=== PATIENT | female | born 1930 | race Caucasian/White ===

== ENCOUNTER 2016-11-11 16:38 | Inpatient (IN) | payer MEDICARE, OTHER ==
[~2016-11-11] VITALS: Ht 162.6 cm; Wt 52.2 kg
[~2016-11-11 16:38] MED LIST: APIX2.5T PO; APIX5TAB PO; ASPI-630 PO; ATEN25TA PO; CALC-98 PO; CEFP200T PO; DABI75CA3 PO; DICY20TA3 PO; DRON400T PO; FAMO20TA5 PO; FURO40TA4 PO; GLUC1TAB71 PO; LEVO100T5 PO; LEVOXYL; LISI2.5T PO; LOPE2TAB56 PO; LORA10TA3 PO; LOVA40TA2 PO; MECL12.52 PO; METO25TA4 PO; METO50TA2 PO; MULT-245 PO; NIAC50TA3 PO; POTA20PA PO; SERT100T PO; TRAM-48 PO
[2016-11-11 17:44] LABS: BASO % 1 % (0-3); EOS % 3 % (0-3); HEMATOCRIT 44.5 % (36.0-47.0); HEMOGLOBIN 14.5 g/dL (12.0-15.5); LYMPH # 1.2 x10^3/uL (1.0-4.8); LYMPH % 20 % (24-48); MEAN CORPUSCULAR HEMOGLOBIN 31 pg (25-35); MEAN CORPUSCULAR HGB CONC 33 g/dL (31-37); MEAN CORPUSCULAR VOLUME 95 fL (79-100); MONO % 7 % (0-9); NEUT % 69 % (31-73); PLATELET COUNT 155 x10^3/uL (140-400); RED BLOOD COUNT 4.68 x10^6/uL (3.50-5.40); RED CELL DISTRIBUTION WIDTH 14.5 % (11.5-14.5)
[2016-11-11] MEDS: NITROGLYCERIN SUBLINGUAL 0.4 MG BOTTLE OF 25. SL PRN ×2 (17:50→18:12)
[2016-11-11 17:54] LABS: CALCIUM 9.3 mg/dL (8.5-10.1); CREATININE 1.1 mg/dL (0.6-1.0); GFR 47.3; POTASSIUM 3.5 mmol/L (3.5-5.1)
[2016-11-11 18:00] LABS: ALBUMIN 3.8 g/dL (3.4-5.0); ALBUMIN/GLOBULIN RATIO 1.1 (1.0-1.7); MAGNESIUM 2.1 mg/dL (1.8-2.4); TOTAL BILIRUBIN 0.4 mg/dL (0.2-1.0); TOTAL PROTEIN 7.4 g/dL (6.4-8.2)
[2016-11-11] MEDS ORDERED: LIDO:MAALOX:DONNATAL 1:1:1 15 ML SINGLE DOSE SWSW ONE (18:00)
[2016-11-11] MEDS ORDERED: IV NORMAL SALINE 1000ML BAG 1,000 ML IV SCH ×2 (18:00→20:05)
[2016-11-11] MEDS ORDERED: ASPIRIN CHEWABLE 81 MG TABLET. PO ONE (18:00)
--- NOTE | 2016-11-11 18:08 | EKG ---
[facility] [address] [place] [address] Test Date: 2016-11-11 Test Time: 16:47:57 Pat Name: PRIYANKA ELISE Department: Room: Gender: F [employer]: : 1930 Requested By: CARINE ANDERS Order Number: [id number] Reading MD: Chivo Velez Measurements Intervals [place] Rate: 104 P: TX: QRS: 3 QRSD: 90 T: -99 QT: 378 QTc: 497 Interpretive Statements A FIB. ST & T ABNORMALITY, CONSIDER ANTEROLATERAL ISCHEMIA OR LEFT VENTRICULAR STRAIN INFEROLATERAL ISCHEMIA OR LEFT VENTRICULAR STRAIN RI6.01 Unconfirmed report Compared to ECG 03/08/2016 15:08:09 Atrial fibrillation no longer present T-wave abnormality still present Possible ischemia still present Electronically Signed On 11-12-2016 15:05:16 CDT by Chivo Velez
[2016-11-11 18:09] LABS: CKMB MASS 2.6 ng/mL (0.0-3.6)
--- NOTE | 2016-11-11 19:28 | PHYS DOC ---
Past Medical History Past Medical History: A-Fib, GERD, Hypertension, Hypothyroid, Renal Disease Past Surgical History: Pacemaker, Other Additional Past Surgical Histo: A- PACED, CATERACT, LEFT BREAST BIOPSY Alcohol Use: None Drug Use: None Adult General Chief Complaint Chief Complaint: CHEST PAIN HPI HPI Patient is a 85 year old female who presents with complaint of chest pain. Patient states her symptoms are approximately 2 hours prior to arrival. Patient states that she got sudden onset of substernal chest pressure is associated with nausea and fatigue. Patient denied any vomiting, diaphoresis, or fever associated with symptoms. Patient has history of A. fib and congestive heart failure but no documented history of coronary artery disease. Patient has not taken any medications for her symptoms. Patient states that her pain radiates up towards the top portion of her chest. Patient states that she has had some mild associated burning with symptoms. Patient took a full strength aspirin prior to symptom onset. Review of Systems Review of Systems Constitutional: Denies fever or chills [] Eyes: Denies change in visual acuity, redness, or eye pain [] HENT: Denies nasal congestion or sore throat [] Respiratory: Denies cough or shortness of breath [] Cardiovascular: Chest pain [] GI: Nausea, denies abdominal pain, vomiting, bloody stools or diarrhea [] : Denies dysuria or hematuria [] Musculoskeletal: Denies back pain or joint pain [] Integument: Denies rash or skin lesions [] Neurologic: Denies headache, focal weakness or sensory changes [] Current Medications Current Medications Current Medications Medications (Trade) Dose Ordered Sig/Jess Start Time Stop Time Status Last Admin Dose Admin Aspirin (Children'S Aspirin) 324 mg 1X ONCE 11/11/16 18:00 11/11/16 18:01 DC Multi-Ingredient Mouthwash/Gargle (Gi Cocktail Single Dose) 15 ml 1X ONCE 11/11/16 18:00 11/11/16 18:01 DC 11/11/16 17:51 15 ML Nitroglycerin (Nitrostat) 0.4 mg PRN Q5MIN PRN 11/11/16 17:45 11/12/16 17:44 11/11/16 18:12 0.4 MG Sodium Chloride 1,000 ml @ 100 mls/hr Q10H 11/11/16 18:00 11/12/16 03:59 11/11/16 17:48 100 MLS/HR Allergies Allergies Allergies Coded Allergies Type Severity Reaction Last Updated Verified No Known Drug Allergies 12/31/13 No Physical Exam Physical Exam Constitutional: Alert, afebrile, appears in mild discomfort. [] HENT: Normocephalic, atraumatic, bilateral external ears normal, oropharynx moist, no oral exudates, nose normal. [] Eyes: PERRLA, EOMI, conjunctiva normal, no discharge. [] Neck: Normal range of motion, no tenderness, supple, no stridor. [] Cardiovascular: Tachycardia, irregular rhythm, no murmur [] Lungs & Thorax: Bilateral breath sounds clear to auscultation [] Abdomen: Bowel sounds normal, soft, no tenderness, no masses, no pulsatile masses. [] Skin: Warm, dry, no erythema, no rash. [] Back: No tenderness, no CVA tenderness. [] Extremities: No tenderness, no cyanosis, no clubbing, ROM intact, no edema. [] Neurologic: Alert and oriented X 3, normal motor function, normal sensory function, no focal deficits noted. [] Current Patient Data Vital Signs Vital Signs Date Time Temp Pulse Resp B/P (MAP) Pulse Ox O2 Delivery O2 Flow Rate FiO2 11/11/16 18:40 99 12 163/91 (115) 96 11/11/16 17:10 Room Air 11/11/16 16:45 98.3 98.3 Lab Values Laboratory Tests Test 11/11/16 17:26 White Blood Count 6.0 x10^3/uL (4.0-11.0) Red Blood Count 4.68 x10^6/uL (3.50-5.40) Hemoglobin 14.5 g/dL (12.0-15.5) Hematocrit 44.5 % (36.0-47.0) Mean Corpuscular Volume 95 fL (79-100) Mean Corpuscular Hemoglobin 31 pg (25-35) Mean Corpuscular Hemoglobin Concent 33 g/dL (31-37) Red Cell Distribution Width 14.5 % (11.5-14.5) Platelet Count 155 x10^3/uL (140-400) Neutrophils (%) (Auto) 69 % (31-73) Lymphocytes (%) (Auto) 20 % (24-48) L Monocytes (%) (Auto) 7 % (0-9) Eosinophils (%) (Auto) 3 % (0-3) Basophils (%) (Auto) 1 % (0-3) Neutrophils # (Auto) 4.1 x10^3uL (1.8-7.7) Lymphocytes # (Auto) 1.2 x10^3/uL (1.0-4.8) Monocytes # (Auto) 0.4 x10^3/uL (0.0-1.1) Eosinophils # (Auto) 0.2 x10^3/uL (0.0-0.7) Basophils # (Auto) 0.0 x10^3/uL (0.0-0.2) Sodium Level 142 mmol/L (136-145) Potassium Level 3.5 mmol/L (3.5-5.1) Chloride Level 102 mmol/L (98-107) Carbon Dioxide Level 28 mmol/L (21-32) Anion Gap 12 (6-14) Blood Urea Nitrogen 21 mg/dL (7-20) H Creatinine 1.1 mg/dL (0.6-1.0) H Estimated GFR (Cockcroft-Gault) 47.3 BUN/Creatinine Ratio 19 (6-20) Glucose Level 98 mg/dL (70-99) Calcium Level 9.3 mg/dL (8.5-10.1) Magnesium Level 2.1 mg/dL (1.8-2.4) Total Bilirubin 0.4 mg/dL (0.2-1.0) Aspartate Amino Transferase (AST) 71 U/L (15-37) H Alanine Aminotransferase (ALT) 57 U/L (14-59) Alkaline Phosphatase 37 U/L (46-116) L Creatine Kinase 154 U/L (26-192) Creatine Kinase MB (Mass) 2.6 ng/mL (0.0-3.6) Creatine Kinase MB Relative Index 1.7 % (0-4) Troponin I Quantitative < 0.017 ng/mL (0.000-0.055) ZG-Tru-L-Type Natriuretic Peptide 3391 pg/mL (0-449) H Total Protein 7.4 g/dL (6.4-8.2) Albumin 3.8 g/dL (3.4-5.0) Albumin/Globulin Ratio 1.1 (1.0-1.7) Lipase 186 U/L (73-393) Laboratory Tests 11/11/16 17:26 Laboratory Tests 11/11/16 17:26 EKG EKG Interpreted by me: Heart rate 104, atrial fibrillation, normal axis, no acute ST /T-wave abnormalities present [] Radiology/Procedures Radiology/Procedures One view AP chest x-ray interpreted by me: Cardiomegaly present, no infiltrates , no effusions [] Course & Med Decision Making Course & Med Decision Making Pertinent Labs and Imaging studies reviewed. (See chart for details) Patient's initial troponin was negative. Patient's BNP is elevated. Patient was given nitroglycerin and GI cocktail with improvement in symptoms though pain continues to be present. Patient's ARELY score is 2. The patient will require admission to the hospital for rule out of myocardial infarction. I spoke with Dr. Weaver who accepted care patient in hospital. Dragon Disclaimer Dragon Disclaimer This electronic medical record was generated, in whole or in part, using a voice recognition dictation system. Departure Departure Impression: Primary Impression: Chest pain Additional Impressions: Afib CHF (congestive heart failure) Disposition: ADMITTED INPATIENT Admitting Physician: Tejal Weaver Condition: STABLE Referrals: MONI REED MD (PCP) Problem Qualifiers Primary Impression: Chest pain Chest pain type: unspecified Qualified Codes: R07.9 - Chest pain, unspecified Additional Impressions: Afib Atrial fibrillation type: chronic Qualified Codes: I48.2 - Chronic atrial fibrillation CHF (congestive heart failure) Congestive heart failure type: unspecified congestive heart failure type Congestive heart failure chronicity: unspecified congestive heart failure chronicity Qualified Codes: I50.9 - Heart failure, unspecified CARINE ANDERS MD Nov 11, 2016 19:28
[2016-11-11 20:15] VITALS: BP 151/100
[2016-11-11] MEDS ORDERED: ONDANSETRON PF 4 MG/2 ML VIAL. IV PRN (20:15)
[2016-11-11] MEDS ORDERED: DOCU-109 PO (22:09)
[2016-11-11] MEDS ORDERED: DIPH50CA59 PO (22:09)
[2016-11-11] MEDS ORDERED: HYDR12.58 PO (22:09)
[2016-11-11] MEDS ORDERED: DOCUSATE SODIUM 100 MG CAPSULE. PO PRN (23:00)
[2016-11-11] MEDS ORDERED: CALCIUM CARBONATE 500 MG TAB.CHEW PO PRN (23:00)
--- NOTE | 2016-11-11 23:01 | PDOC1 ---
History and Physical Date of Admission Date of Admission DATE: 11/11/16 TIME: 22:55 Identification/Chief Complaint Chief Complaint chest pain Problems: Source Source: Chart review, Patient History of Present Illness History of Present Illness Ms. Gardner, is a 85 year old female admit from ER with acute chest pain. 2 hours of sudden onset, substernal chest pressure with nausea and fatigue. She felt "hot and vomity" and she felt that she had drool with bilious consistency in her mouth, that has now largely improved. She denied any vomiting, diaphoresis, associated with symptoms. Pain is dull and burning, she did not describe pressure - pain 6/10, now better Noted history of A. fib and Diastolic congestive heart failure, compliant with meds, no coronary artery disease. She has new life stress from moving to assisted living this week, has been compliant with all meds Past Medical History Cardiovascular: AFIB, CHF, HTN, Hyperlipidemia, Other Pulmonary: No pertinent hx CENTRAL NERVOUS SYSTEM: Other GI: GERD, Peptic Ulcer disease Heme/Onc: No pertinent hx Hepatobiliary: No pertinent hx Psych: Anxiety, Depression Musculoskeletal: Osteoarthritis Rheumatologic: No pertinent hx Infectious disease: No pertinent hx Renal/: No pertinent hx Endocrine: Hypothyroidism Past Surgical History Past Surgical History: Pacemaker, Other Family History Family History: Cancer Social History Smoke: No ALCOHOL: none Drugs: None Current Medications Current Medications Current Medications Aspirin (Children'S Aspirin) 324 mg 1X ONCE PO ; Start 11/11/16 at 18:00; Stop 11/11/16 at 18:01; Status DC Nitroglycerin (Nitrostat) 0.4 mg PRN Q5MIN PRN SL CP RATING > 1/10 Last administered on 11/11/16 18:12; Start 11/11/16 at 17:45; Stop 11/12/16 at 17:44 Sodium Chloride 1,000 ml @ 100 mls/hr Q10H IV Last administered on 11/11/16 17 :48; Start 11/11/16 at 18:00; Stop 11/12/16 at 03:59 Multi-Ingredient Mouthwash/Gargle (Gi Cocktail Single Dose) 15 ml 1X ONCE SWSW Last administered on 11/11/16 17:51; Start 11/11/16 at 18:00; Stop 11/11/16 at 18:01; Status DC Ondansetron HCl (Zofran) 4 mg PRN Q8HRS PRN IV NAUSEA/VOMITING; Start 11/11/16 at 20:15; Stop 11/12/16 at 20:14 Sodium Chloride 1,000 ml @ 50 mls/hr Q20H IV ; Start 11/11/16 at 20:05; Stop 11/12/16 at 20:04 Active Scripts Active Reported Colace (Docusate Sodium) 100 Mg Capsule 1 Cap PO BID PRN Unisom (Diphenhydramine Hcl) 50 Mg Capsule 50 Mg PO HS Hydrochlorothiazide Tablet (Hydrochlorothiazide) 12.5 Mg Tablet 2 Tab PO DAILY Eliquis (Apixaban) 2.5 Mg Tablet 5 Mg PO BID Famotidine 20 Mg Tablet 20 Mg PO HS Metoprolol Tartrate 50 Mg Tablet 50 Mg PO BID Ultram (Tramadol Hcl) 50 Mg Tablet 1 Tab PO Q6HRS Levothyroxine Sodium 100 Mcg Tablet 1 Tab PO DAILY Lisinopril 2.5 Mg Tablet 2.5 Mg PO DAILY Multi Vitamin Daily (Multivitamin) 1 Each Tablet 1 Each PO Zoloft (Sertraline Hcl) 100 Mg Tablet 100 Mg PO DAILY Lovastatin 40 Mg Tablet 40 Mg PO HS Allergies Allergies: Coded Allergies: No Known Drug Allergies (Unverified , 12/31/13) ROS General: YES: Malaise, No: Chills, Night Sweats, Fatigue, Appetite, Other PSYCHOLOGICAL ROS: No: Anxiety, Behavioral Disorder, Concentration difficultie , Decreased libido, Depression, Disorientation, Hallucinations, Hostility, Irritablity, Memory difficulties, Mood Swings, Obsessive thoughts, Physical abuse, Sexual abuse, Sleep disturbances, Suicidal ideation, Other Eyes: No Blurry vision, No Decreased vision, No Double vision, No Dry eyes, No Excessive tearing, No Eye Pain, No Itchy Eyes, No Loss of vision, No Photophobia , No Scotomata, No Uses contacts, No Uses glasses, No Other HEENT: No: Heacaches, Visual Changes, Hearing change, Nasal congestion, Nasal discharge, Oral lesions, Sinus pain, Sore Throat, Epistaxis, Sneezing, Snoring, Tinnitus, Vertigo, Vocal changes, Other Respiratory: No: Cough, Hemoptysis, Orthopnea, Pleuritic Pain, Shortness of breath, SOB with excertion, Sputum Changes, Stridor, Tachypnea, Wheezing, Other Cardiovascular: yes Chest Pain, No Palpitations, No Orthopnea, No Paroxysmal Noc. Dyspnea, No Edema, No Lt Headedness, No Other Gastrointestinal: Yes Nausea, Yes Abdominal Pain, No Vomiting, No Diarrhea, No Constipation, No Melena, No Hematochezia, No Other Genitourinary: No Dysuria, No Frequency, No Incontinence, No Hematuria, No Retention, No Discharge, No Urgency, No Pain, No Flank Pain, No Other, No , No , No , No , No , No , No Musculoskeletal: No Gait Disturbance, No Joint Pain, No Joint Stiffness, No Joint Swelling, No Muscle Pain, No Muscular Weakness, No Pain In:, No Swelling In:, No Other Neurological: No Behavorial Changes, No Bowel/Bladder ControlChng, No Confusion , No Dizziness, No Gait Disturbance, No Headaches, No Impaired Coord/balance, No Memory Loss, No Numbness/Tingling, No Seizures, No Speech Problems, No Tremors, No Visual Changes, No Weakness, No Other Skin: No Dry Skin, No Eczema, No Hair Changes, No Lumps, No Mole Changes, No Mottling, No Nail Changes, No Pruritus, No Rash, No Skin Lesion Changes, No Other, No Acne Physical Exam General: Alert, Oriented X3, Cooperative HEENT: Atraumatic, PERRLA, EOMI Lungs: Clear to auscultation Heart: no murmurs, irregularly irregular, other (pain not reproducible) Abdomen: Normal bowel sounds, Soft (mild tender, ) Extremities: No clubbing, No cyanosis, No edema, Normal pulses Neuro: Normal tone, Sensation intact Psych/Mental Status: Mood NL Vitals Vitals Vital Signs Date Time Temp Pulse Resp B/P (MAP) Pulse Ox O2 Delivery O2 Flow Rate FiO2 11/11/16 19:10 107 12 161/88 (112) 96 11/11/16 17:10 Room Air 11/11/16 16:45 98.3 98.3 Labs Labs Laboratory Tests Test 11/11/16 17:26 White Blood Count 6.0 x10^3/uL (4.0-11.0) Red Blood Count 4.68 x10^6/uL (3.50-5.40) Hemoglobin 14.5 g/dL (12.0-15.5) Hematocrit 44.5 % (36.0-47.0) Mean Corpuscular Volume 95 fL (79-100) Mean Corpuscular Hemoglobin 31 pg (25-35) Mean Corpuscular Hemoglobin Concent 33 g/dL (31-37) Red Cell Distribution Width 14.5 % (11.5-14.5) Platelet Count 155 x10^3/uL (140-400) Neutrophils (%) (Auto) 69 % (31-73) Lymphocytes (%) (Auto) 20 % (24-48) Monocytes (%) (Auto) 7 % (0-9) Eosinophils (%) (Auto) 3 % (0-3) Basophils (%) (Auto) 1 % (0-3) Neutrophils # (Auto) 4.1 x10^3uL (1.8-7.7) Lymphocytes # (Auto) 1.2 x10^3/uL (1.0-4.8) Monocytes # (Auto) 0.4 x10^3/uL (0.0-1.1) Eosinophils # (Auto) 0.2 x10^3/uL (0.0-0.7) Basophils # (Auto) 0.0 x10^3/uL (0.0-0.2) Sodium Level 142 mmol/L (136-145) Potassium Level 3.5 mmol/L (3.5-5.1) Chloride Level 102 mmol/L (98-107) Carbon Dioxide Level 28 mmol/L (21-32) Anion Gap 12 (6-14) Blood Urea Nitrogen 21 mg/dL (7-20) Creatinine 1.1 mg/dL (0.6-1.0) Estimated GFR (Cockcroft-Gault) 47.3 BUN/Creatinine Ratio 19 (6-20) Glucose Level 98 mg/dL (70-99) Calcium Level 9.3 mg/dL (8.5-10.1) Magnesium Level 2.1 mg/dL (1.8-2.4) Total Bilirubin 0.4 mg/dL (0.2-1.0) Aspartate Amino Transf (AST/SGOT) 71 U/L (15-37) Alanine Aminotransferase (ALT/SGPT) 57 U/L (14-59) Alkaline Phosphatase 37 U/L (46-116) Creatine Kinase 154 U/L (26-192) Creatine Kinase MB (Mass) 2.6 ng/mL (0.0-3.6) Creatine Kinase MB Relative Index 1.7 % (0-4) Troponin I Quantitative < 0.017 ng/mL (0.000-0.055) PI-Wjp-F-Type Natriuretic Peptide 3391 pg/mL (0-449) Total Protein 7.4 g/dL (6.4-8.2) Albumin 3.8 g/dL (3.4-5.0) Albumin/Globulin Ratio 1.1 (1.0-1.7) Lipase 186 U/L (73-393) Laboratory Tests Test 11/11/16 17:26 White Blood Count 6.0 x10^3/uL (4.0-11.0) Red Blood Count 4.68 x10^6/uL (3.50-5.40) Hemoglobin 14.5 g/dL (12.0-15.5) Hematocrit 44.5 % (36.0-47.0) Mean Corpuscular Volume 95 fL (79-100) Mean Corpuscular Hemoglobin 31 pg (25-35) Mean Corpuscular Hemoglobin Concent 33 g/dL (31-37) Red Cell Distribution Width 14.5 % (11.5-14.5) Platelet Count 155 x10^3/uL (140-400) Neutrophils (%) (Auto) 69 % (31-73) Lymphocytes (%) (Auto) 20 % (24-48) Monocytes (%) (Auto) 7 % (0-9) Eosinophils (%) (Auto) 3 % (0-3) Basophils (%) (Auto) 1 % (0-3) Neutrophils # (Auto) 4.1 x10^3uL (1.8-7.7) Lymphocytes # (Auto) 1.2 x10^3/uL (1.0-4.8) Monocytes # (Auto) 0.4 x10^3/uL (0.0-1.1) Eosinophils # (Auto) 0.2 x10^3/uL (0.0-0.7) Basophils # (Auto) 0.0 x10^3/uL (0.0-0.2) Sodium Level 142 mmol/L (136-145) Potassium Level 3.5 mmol/L (3.5-5.1) Chloride Level 102 mmol/L (98-107) Carbon Dioxide Level 28 mmol/L (21-32) Anion Gap 12 (6-14) Blood Urea Nitrogen 21 mg/dL (7-20) Creatinine 1.1 mg/dL (0.6-1.0) Estimated GFR (Cockcroft-Gault) 47.3 BUN/Creatinine Ratio 19 (6-20) Glucose Level 98 mg/dL (70-99) Calcium Level 9.3 mg/dL (8.5-10.1) Magnesium Level 2.1 mg/dL (1.8-2.4) Total Bilirubin 0.4 mg/dL (0.2-1.0) Aspartate Amino Transf (AST/SGOT) 71 U/L (15-37) Alanine Aminotransferase (ALT/SGPT) 57 U/L (14-59) Alkaline Phosphatase 37 U/L (46-116) Creatine Kinase 154 U/L (26-192) Creatine Kinase MB (Mass) 2.6 ng/mL (0.0-3.6) Creatine Kinase MB Relative Index 1.7 % (0-4) Troponin I Quantitative < 0.017 ng/mL (0.000-0.055) KS-Kso-R-Type Natriuretic Peptide 3391 pg/mL (0-449) Total Protein 7.4 g/dL (6.4-8.2) Albumin 3.8 g/dL (3.4-5.0) Albumin/Globulin Ratio 1.1 (1.0-1.7) Lipase 186 U/L (73-393) VTE Prophylaxis Ordered VTE Prophylaxis Devices: Yes VTE Pharmacological Prophylaxi: No Assessment/Plan Assessment/Plan pain, chest pain, anginal but atypical, r/o ACS< consult CV to eval. 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
[2016-11-11] MEDS: traMADol 50 MG TABLET PO PRN (23:19)
[2016-11-11] MEDS: LIDO:MAALOX:DONNATAL 1:1:1 15 ML SINGLE DOSE SWSW ONE (23:19)
[2016-11-11 23:30] VITALS: BP 153/85
[2016-11-12] MEDS ORDERED: traMADol 50 MG TABLET PO SCH
--- NOTE | 2016-11-12 02:22 | ACF ---
Admission Forms Criteria HEART FAILURE: COMMON COMPLICATIONS (Place 'X' for any and all applicable criteria): Ongoing inpatient care may be indicated for heart failure with 1 or more of the following (1)(2)(3)(4)(5)(6)(7)(8): [ ]I. New-onset heart failure [ ]II. Acute cardiac ischemia causing or associated with failure [ ]III. Ongoing need for care for primary condition requiring frequent therapy adjustments because of changes in cardiac function (eg, drug dosage changes for drugs that are renally metabolized) [X]IV. Complications of heart failure, including 1 or more of the following: [X]a) Hemodynamic instability [ ]b) Pericardial effusion [ ]c) Symptomatic pleural effusion [ ]d) Hypoxemia [ ]e) Tachypnea [ ]f) Dyspnea [ ]g) Syncope [ ]h) Altered mental status [ ]i) Acute renal insufficiency that is severe (reduction of more than 50% in estimated glomerular filtration rate from baseline) or progressive reduction of more than 25% in estimated glomerular filtration rate from baseline, with creatinine continuing to rise) [ ]j) Debilitating anasarca (eg tissue breakdown with infection, inability to void due to edema) (E) [ ]k) Clinically significant metabolic abnormalities due to heart failure (eg, new-onset metabolic acidosis) Extended stay may be needed until ALL of the following are present (1)(3)(18)(41 )(55) [ ]a) Hemodynamic stability [ ]b) Stable and effective diuretic regimen established (or patient on stable dialysis regimen if in chronic renal failure) [ ]c) Volume status acceptable on oral medication [ ]d) Breathing comfortably at rest [ ]e) Saturation of arterial oxygen greater than 90% or at acceptable baseline [ ]f) Pulmonary edema absent or improved [ ]g) Peripheral or sacral edema absent or improved [ ]h) Renal function stable and manageable at a lower level of care [ ]i) Complications (eg, pleural effusion) resolved or manageable at a lower level of care [ ]g) Patient or caregiver has received written discharge instructions or educational material addressing activity level, diet, discharge medications, follow-up appointment, weight monitoring, and what to do if symptoms worsen.(25)(26) The original [employer] [facility] [employer] content created by [employer] has been revised. The portions of the content which have been revised are identified through the use of italic text, and [facility] has neither reviewed nor approved the modified material.All other unmodified content is copyright [facility]. Please see references footnoted in the original [facility] edition 2015 Admission Criteria Met?: Yes ALFRED ROBERSON Nov 12, 2016 02:22
[2016-11-12 02:50] LABS: BASO # 0.1 x10^3/uL (0.0-0.2); BASO % 1 % (0-3); EOS % 3 % (0-3); HEMATOCRIT 41.1 % (36.0-47.0); HEMOGLOBIN 13.1 g/dL (12.0-15.5); LYMPH % 26 % (24-48); MEAN CORPUSCULAR HEMOGLOBIN 30 pg (25-35); MEAN CORPUSCULAR HGB CONC 32 g/dL (31-37); MEAN CORPUSCULAR VOLUME 95 fL (79-100); MONO % 10 % (0-9); NEUT % 62 % (31-73); PLATELET COUNT 152 x10^3/uL (140-400); RED BLOOD COUNT 4.32 x10^6/uL (3.50-5.40); WHITE BLOOD COUNT 7.9 x10^3/uL (4.0-11.0)
[2016-11-12 02:56] LABS: CALCIUM 8.7 mg/dL (8.5-10.1); GFR 52.8; POTASSIUM 3.1 mmol/L (3.5-5.1)
[2016-11-12 03:00] VITALS: BP 115/57
[2016-11-12 03:15] LABS: CHOLESTEROL/HDL RATIO 2.8
[2016-11-12] MEDS: ANTI-COAG MONITOR BY PHARMACY. MC PRN (04:53)
[2016-11-12] MEDS: LEVOTHYROXINE 100 MCG TABLET PO SCH (06:34)
[2016-11-12 07:00] VITALS: BP 152/82
--- NOTE | 2016-11-12 08:37 | PDOC2 ---
CARDIAC CONSULT DATE OF CONSULT Date of Consult DATE: 11/12/16 TIME: 08:25 REASON FOR CONSULT Reason for Consult: Chest pain REFERRING PHYSICIAN Referring Physician: Dr. Humphrey SOURCE Source: Chart review, Patient HISTORY OF PRESENT ILLNESS HISTORY OF PRESENT ILLNESS This is an 85 yo female who presented with complaints of chest pain. Patient reports pain began yesterday afternoon. Located in her central chest. Describes as heaviness. Associated with dizziness, SOA, and nausea. No associated diaphoresis or palpitations. No specific exacerbating or relieved factors. Moved upward into throat. Progressively worsened through afternoon. Became "debilitating." Notified staff at assisted living who called EMS. Resolved this morning. Reports compliance with medications. Reports having similar episode of chest pain a couple of weeks ago but was more stabbing in nature. Pain resolved without intervention and did not return until yesterday. PAST MEDICAL HISTORY Past Medical History Cardiovascular: AFIB, CHF, HTN, Hyperlipidemia, Other (SSS s/p pacemaker, PVD s /p subclavian stent) Pulmonary: No pertinent hx CENTRAL NERVOUS SYSTEM: Other (no pertinent hx ) GI: GERD, Peptic Ulcer disease Heme/Onc: No pertinent hx Hepatobiliary: No pertinent hx Psych: Anxiety, Depression Musculoskeletal: Osteoarthritis Rheumatologic: No pertinent hx Infectious disease: No pertinent hx ENT: No pertinent hx Renal/: No pertinent hx Endocrine: Hypothyroidism Dermatology: No pertinent hx PAST SURGICAL HISTORY Past Surgical History Pacemaker (Medtronic ), Other (right knee sx, left breast lumpectomy ) FAMILY HISTORY Family History: Cancer SOCIAL HISTORY Social History Smoke: No ALCOHOL: none Drugs: None Lives: Assisted living CURRENT MEDICATIONS CURRENT MEDICATIONS Current Medications Medications (Trade) Dose Ordered Sig/Jess Route PRN Reason Start Time Stop Time Status Last Admin Dose Admin Nitroglycerin (Nitrostat) 0.4 mg PRN Q5MIN PRN SL CP RATING > 1/10 11/11/16 17:45 11/12/16 17:44 11/11/16 18:12 Sodium Chloride 1,000 ml @ 100 mls/hr Q10H IV 11/11/16 18:00 11/11/16 23:14 DC 11/11/16 17:48 Multi-Ingredient Mouthwash/Gargle (Gi Cocktail Single Dose) 15 ml 1X ONCE SWSW 11/11/16 18:00 11/11/16 18:01 DC 11/11/16 17:51 Levothyroxine Sodium (Synthroid) 100 mcg DAILY07 PO 11/12/16 07:00 11/12/16 06:34 Multi-Ingredient Mouthwash/Gargle (Gi Cocktail Single Dose) 15 ml 1X ONCE SWSW 11/11/16 23:30 11/11/16 23:31 DC 11/11/16 23:19 Info (Anti-Coagulation Monitoring By Pharmacy) 1 each PRN DAILY PRN MC SEE COMMENTS 11/11/16 23:15 11/12/16 04:53 Tramadol HCl (Ultram) 50 mg PRN Q6HRS PRN PO MODERATE PAIN 11/12/16 00:00 11/11/16 23:19 ALLERGIES ALLERGIES: Coded Allergies: No Known Drug Allergies (Unverified , 12/31/13) ROS Review of System 14 point ROS conducted with pertinent positives noted above in HPI PHYSICAL EXAM General: Alert, Oriented X3, Cooperative, No acute distress HEENT: Atraumatic, Mucous membr. moist/pink Lungs: Clear to auscultation, Normal air movement Heart: Normal S1, Normal S2, Other (IRRR; tele AFIB with controlled ventricular rate) Abdomen: Soft Extremities: No cyanosis, No edema, Normal pulses Skin: No significant lesion Neuro: Normal speech, Sensation intact Psych/Mental Status: Mental status NL, Mood NL MUSCULOSKELETAL: Osteoarthritic changes both hands VITALS VITALS Vital Signs Date Time Temp Pulse Resp B/P (MAP) Pulse Ox O2 Delivery O2 Flow Rate FiO2 11/12/16 07:00 97.4 115 18 152/82 (105) 99 Room Air 97.4 11/12/16 03:00 2.0 LABS Lab: Laboratory Tests Test 11/11/16 17:26 11/12/16 01:50 White Blood Count 6.0 x10^3/uL (4.0-11.0) 7.9 x10^3/uL (4.0-11.0) Red Blood Count 4.68 x10^6/uL (3.50-5.40) 4.32 x10^6/uL (3.50-5.40) Hemoglobin 14.5 g/dL (12.0-15.5) 13.1 g/dL (12.0-15.5) Hematocrit 44.5 % (36.0-47.0) 41.1 % (36.0-47.0) Mean Corpuscular Volume 95 fL (79-100) 95 fL (79-100) Mean Corpuscular Hemoglobin 31 pg (25-35) 30 pg (25-35) Mean Corpuscular Hemoglobin Concent 33 g/dL (31-37) 32 g/dL (31-37) Red Cell Distribution Width 14.5 % (11.5-14.5) 14.0 % (11.5-14.5) Platelet Count 155 x10^3/uL (140-400) 152 x10^3/uL (140-400) Neutrophils (%) (Auto) 69 % (31-73) 62 % (31-73) Lymphocytes (%) (Auto) 20 % (24-48) 26 % (24-48) Monocytes (%) (Auto) 7 % (0-9) 10 % (0-9) Eosinophils (%) (Auto) 3 % (0-3) 3 % (0-3) Basophils (%) (Auto) 1 % (0-3) 1 % (0-3) Neutrophils # (Auto) 4.1 x10^3uL (1.8-7.7) 4.9 x10^3uL (1.8-7.7) Lymphocytes # (Auto) 1.2 x10^3/uL (1.0-4.8) 2.0 x10^3/uL (1.0-4.8) Monocytes # (Auto) 0.4 x10^3/uL (0.0-1.1) 0.8 x10^3/uL (0.0-1.1) Eosinophils # (Auto) 0.2 x10^3/uL (0.0-0.7) 0.2 x10^3/uL (0.0-0.7) Basophils # (Auto) 0.0 x10^3/uL (0.0-0.2) 0.1 x10^3/uL (0.0-0.2) Sodium Level 142 mmol/L (136-145) 142 mmol/L (136-145) Potassium Level 3.5 mmol/L (3.5-5.1) 3.1 mmol/L (3.5-5.1) Chloride Level 102 mmol/L (98-107) 105 mmol/L (98-107) Carbon Dioxide Level 28 mmol/L (21-32) 28 mmol/L (21-32) Anion Gap 12 (6-14) 9 (6-14) Blood Urea Nitrogen 21 mg/dL (7-20) 16 mg/dL (7-20) Creatinine 1.1 mg/dL (0.6-1.0) 1.0 mg/dL (0.6-1.0) Estimated GFR (Cockcroft-Gault) 47.3 52.8 BUN/Creatinine Ratio 19 (6-20) Glucose Level 98 mg/dL (70-99) 78 mg/dL (70-99) Calcium Level 9.3 mg/dL (8.5-10.1) 8.7 mg/dL (8.5-10.1) Magnesium Level 2.1 mg/dL (1.8-2.4) Total Bilirubin 0.4 mg/dL (0.2-1.0) Aspartate Amino Transf (AST/SGOT) 71 U/L (15-37) Alanine Aminotransferase (ALT/SGPT) 57 U/L (14-59) Alkaline Phosphatase 37 U/L (46-116) Creatine Kinase 154 U/L (26-192) Creatine Kinase MB (Mass) 2.6 ng/mL (0.0-3.6) Creatine Kinase MB Relative Index 1.7 % (0-4) Troponin I Quantitative < 0.017 ng/mL (0.000-0.055) < 0.017 ng/mL (0.000-0.055) LA-Jll-H-Type Natriuretic Peptide 3391 pg/mL (0-449) Total Protein 7.4 g/dL (6.4-8.2) Albumin 3.8 g/dL (3.4-5.0) Albumin/Globulin Ratio 1.1 (1.0-1.7) Lipase 186 U/L (73-393) Triglycerides Level 62 mg/dL (0-150) Cholesterol Level 143 mg/dL (0-200) LDL Cholesterol, Calculated 79 mg/dL (0-100) VLDL Cholesterol, Calculated 12 mg/dL (0-40) Non-HDL Cholesterol Calculated 91 mg/dL (0-129) HDL Cholesterol 52 mg/dL (40-60) Cholesterol/HDL Ratio 2.8 ECHOCARDIOGRAM ECHOCARDIOGRAM <Conclusion> Left ventricle systolic function is normal. The Ejection Fraction is 50-55%. Septal motion suggestive of post-operative state/conduction abnormality. Tissue Doppler imaging reveals moderate left ventricular diastolic dysfunction. Doppler and Color Flow revealed mild mitral regurgitation. Doppler and Color Flow revealed moderate tricuspid regurgitation. The PA pressure was estimated at 45 mmHg. DATE: 03/10/16 0905 ASSESSMENT/PLAN ASSESSMENT/PLAN 1. Chest pain; trop series negative- AMI ruled out. Echo 03/25 with low- normal LV function with an EF of 50-55%. Given symptomatology and risk factors, will proceed with MPI to r/o ischemia. 2. Paroxysmal AFIB; device check 10/28/16 revealed limited AFIB burden. Presently in AFIB. Rate controlled with BB. on Elquis for stroke prevention 3. SSS s/p Medtronic pacemaker implantation: recent device interrogation with normal device function 4. Hypertensionl; controlled with meds 5. Hyperlipidemia; LDL 79. continue statin 6. Chronic diastolic heart failure; appears compensated. continue medical management 7. Hypokalemia; replace. Mg WNL. Monitor lytes. 8. GERD; PPI Problems: DORCAS MASTERS APRN Nov 12, 2016 08:37
[2016-11-12] MEDS ORDERED: POTASSIUM CHLORIDE 20 MEQ TABLET.ER. PO ONE (08:45)
--- NOTE | 2016-11-12 08:51 | RAD ---
Indication chest pain. A single view of the chest was obtained. Comparison is made to an examination 03/08/2016. There is mild unchanged cardiomegaly. There is no gross congestive heart failure. There is no consolidated pneumonia significant pleural fluid collection or pneumothorax. Bipolar cardiac pacing device and degenerative changes about the shoulders are noted. A vascular stent is noted in the left hemithorax. IMPRESSION: No acute finding. No significant change
[2016-11-12] MEDS ORDERED: APIXABAN 5 MG TABLET. PO SCH (09:00)
[2016-11-12] MEDS: SERTRALINE 50 MG TABLET. PO SCH (09:30)
[2016-11-12] MEDS: LISINOPRIL 2.5 MG TABLET PO SCH (09:31)
[2016-11-12] MEDS: hydroCHLOROthiazide 25 MG TABLET PO SCH (09:32)
[2016-11-12] MEDS ORDERED: REGADENOSON 0.4 MG/5 ML DISP.SYRIN. IV ONE (10:45)
[2016-11-12] MEDS: traMADol 50 MG TABLET PO PRN ×2 (12:43→23:37)
[2016-11-12] MEDS: METOPROLOL TART IMMED RELEASE 50 MG TABLET. PO SCH ×2 (13:30→20:57)
--- NOTE | 2016-11-12 13:52 | RAD ---
APPROVED REPORT Test Type: Pharmacological Stress Nurse/Tech: Iza Pretty RN Test Indications: Chest Pain Cardiac History: see ehr Medications: see ehr Medical History: see ehr Resting ECG: Afib Resting Heart Rate: 114 bpm Resting Blood Pressure: 156/91mmHg Pretest Chest Pain: None Nurse/Tech Notes Lungs CTA, Irregular heart rate Consent: The procedure was explained to the patient in lay terms. Informed consent was witnessed. Kieran eout was entered into [employer]. History and Stress Test performed by Brooke PittmanNKisha Pharm. Details Pharmacologic stress testing was performed using 0.4mg per 5ml of regadenoson given intravenously ove r 7-10 seconds. Stress Symptoms No chest pain or symptoms.Nausea POST EXERCISE Reason for Termination: Infusion complete Max HR: 152 bpm Max Blood Pressure: 158/60mmHg Blood Pressure response to exercise: Normal blood pressure response during stress. Chest Pain: No. Arrhythmia: No. ST Change: No. INTERPRETATION Stress EKG Conclusion: The resting EKG showed atrial fibrillation with mild nonspecific ST segment ch anges. The stress EKG showed no significant changes from baseline. No EKG evidence of stress-induced ischemia. Imaging Protocol IMAGE PROTOCOL: Rest Tc-99m/stress Tc-99m 1 day Rest: Stress: Viability: Radiopharm.Tc99m [id number] Sestamibi Dose8.02mCi 30.6mCi Duration 15min. 10min. Img Date 11/12/2016 11/12/2016 Inj-Img Pviv50uss. 60min. Rest Admin Site:IV - Left AntecubitalAdministrator:RT Carolina (R)(N) Stress Admin Site: IV - Left AntecubitalAdministrator: RT Carolina (R)(N) STRESS DATA End Diast. Vol.53.0mlAv. Heart Gzod864.0bpm End Syst. Vol.28.0mlCO Index BSA0.0L/min Myocardial Mass92.0gEject. Ppmjbojf23.0% Stress Rates Pk. Fill Rate4.84EDV/secLVtime Pk. Fill 94.36msec Pk. Empty Rate4.86ESV/secLVtime Pk. Eject75.41msec 04/12 Pk. Fill2.48EDV/sec Stress Scores Regional WT1.00Summed WT19.00 Regional WM0.00Summed WM29.00 LV Perfusion The stress scans showed no significant defects. The rest scans showed no significant defects. Nuclear imaging shows no reversible ischemia or infarct. Wall Motion Left ventricular systolic function has mild hypokinesis in the septal wall. Overall ejection fraction is 47%. Rhythm is atrial fibrillation. LV Perf. Quant 17 Seg. SSS8.00 17 Seg. SRS12.00 17 Seg. SDS0.00 Stress Defect Extent (% LAD)14.40Rest Defect Extent (% LAD)13.80Rev. Defect Extent (% LAD)0.00 Stress Defect Extent (% LCX) 20.00Rest Defect Extent (% LCX)23.80Rev. Defect Extent (% LCX)0.00 Stress Defect Extent (% RCA)0.00Rest Defect Extent (% RCA)2.20Rev. Defect Extent (% RCA)0.00 Stress Defect Extent (% JAMEE)14.30Rest Defect Extent (% JAMEE)17.40Rev. Defect Extent (% JAMEE)0.00 Conclusion 1. No EKG evidence of stress-induced ischemia. 2. Nuclear imaging shows no reversible ischemia or infarct. 3. Mildly decreased ejection fraction at 47% in the setting of atrial fibrillation. 4. Low to moderately low risk Lexiscan nuclear stress test.
[2016-11-12 15:00] VITALS: BP 125/81
--- NOTE | 2016-11-12 15:23 | PDOC ---
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, in chronic htn, History of Present Illness History of Present Illness DC home if stress test neg, chest pain resolved, PT eval, 6 min walk, Vitals Vitals Vital Signs Date Time Temp Pulse Resp B/P (MAP) Pulse Ox O2 Delivery O2 Flow Rate FiO2 11/12/16 13:43 99 Nasal Cannula 2.0 11/12/16 13:30 110 131/73 11/12/16 12:43 18 11/12/16 07:00 97.4 97.4 Physical Exam General: Alert, Oriented X3, Cooperative, No acute distress Heart: Normal S1, Normal S2, Other (IRRR; tele AFIB with controlled ventricular rate) Lungs: Clear, Other Abdomen: Soft Extremities: No cyanosis, No edema, Normal pulses Skin: No significant lesion Labs LABS Laboratory Tests Test 11/11/16 17:26 11/12/16 01:50 11/12/16 08:25 White Blood Count 6.0 x10^3/uL (4.0-11.0) 7.9 x10^3/uL (4.0-11.0) Red Blood Count 4.68 x10^6/uL (3.50-5.40) 4.32 x10^6/uL (3.50-5.40) Hemoglobin 14.5 g/dL (12.0-15.5) 13.1 g/dL (12.0-15.5) Hematocrit 44.5 % (36.0-47.0) 41.1 % (36.0-47.0) Mean Corpuscular Volume 95 fL (79-100) 95 fL (79-100) Mean Corpuscular Hemoglobin 31 pg (25-35) 30 pg (25-35) Mean Corpuscular Hemoglobin Concent 33 g/dL (31-37) 32 g/dL (31-37) Red Cell Distribution Width 14.5 % (11.5-14.5) 14.0 % (11.5-14.5) Platelet Count 155 x10^3/uL (140-400) 152 x10^3/uL (140-400) Neutrophils (%) (Auto) 69 % (31-73) 62 % (31-73) Lymphocytes (%) (Auto) 20 % (24-48) 26 % (24-48) Monocytes (%) (Auto) 7 % (0-9) 10 % (0-9) Eosinophils (%) (Auto) 3 % (0-3) 3 % (0-3) Basophils (%) (Auto) 1 % (0-3) 1 % (0-3) Neutrophils # (Auto) 4.1 x10^3uL (1.8-7.7) 4.9 x10^3uL (1.8-7.7) Lymphocytes # (Auto) 1.2 x10^3/uL (1.0-4.8) 2.0 x10^3/uL (1.0-4.8) Monocytes # (Auto) 0.4 x10^3/uL (0.0-1.1) 0.8 x10^3/uL (0.0-1.1) Eosinophils # (Auto) 0.2 x10^3/uL (0.0-0.7) 0.2 x10^3/uL (0.0-0.7) Basophils # (Auto) 0.0 x10^3/uL (0.0-0.2) 0.1 x10^3/uL (0.0-0.2) Sodium Level 142 mmol/L (136-145) 142 mmol/L (136-145) Potassium Level 3.5 mmol/L (3.5-5.1) 3.1 mmol/L (3.5-5.1) Chloride Level 102 mmol/L (98-107) 105 mmol/L (98-107) Carbon Dioxide Level 28 mmol/L (21-32) 28 mmol/L (21-32) Anion Gap 12 (6-14) 9 (6-14) Blood Urea Nitrogen 21 mg/dL (7-20) 16 mg/dL (7-20) Creatinine 1.1 mg/dL (0.6-1.0) 1.0 mg/dL (0.6-1.0) Estimated GFR (Cockcroft-Gault) 47.3 52.8 BUN/Creatinine Ratio 19 (6-20) Glucose Level 98 mg/dL (70-99) 78 mg/dL (70-99) Calcium Level 9.3 mg/dL (8.5-10.1) 8.7 mg/dL (8.5-10.1) Magnesium Level 2.1 mg/dL (1.8-2.4) Total Bilirubin 0.4 mg/dL (0.2-1.0) Aspartate Amino Transf (AST/SGOT) 71 U/L (15-37) Alanine Aminotransferase (ALT/SGPT) 57 U/L (14-59) Alkaline Phosphatase 37 U/L (46-116) Creatine Kinase 154 U/L (26-192) Creatine Kinase MB (Mass) 2.6 ng/mL (0.0-3.6) Creatine Kinase MB Relative Index 1.7 % (0-4) Troponin I Quantitative < 0.017 ng/mL (0.000-0.055) < 0.017 ng/mL (0.000-0.055) < 0.017 ng/mL (0.000-0.055) IE-Lkt-E-Type Natriuretic Peptide 3391 pg/mL (0-449) Total Protein 7.4 g/dL (6.4-8.2) Albumin 3.8 g/dL (3.4-5.0) Albumin/Globulin Ratio 1.1 (1.0-1.7) Lipase 186 U/L (73-393) Triglycerides Level 62 mg/dL (0-150) Cholesterol Level 143 mg/dL (0-200) LDL Cholesterol, Calculated 79 mg/dL (0-100) VLDL Cholesterol, Calculated 12 mg/dL (0-40) Non-HDL Cholesterol Calculated 91 mg/dL (0-129) HDL Cholesterol 52 mg/dL (40-60) Cholesterol/HDL Ratio 2.8 Review of Systems Review of Systems no pain today would like to DC Comment Review of Relevant I have reviewed the following items ori (where applicable) has been applied. Labs Laboratory Tests Test 11/11/16 17:26 11/12/16 01:50 11/12/16 08:25 White Blood Count 6.0 x10^3/uL (4.0-11.0) 7.9 x10^3/uL (4.0-11.0) Red Blood Count 4.68 x10^6/uL (3.50-5.40) 4.32 x10^6/uL (3.50-5.40) Hemoglobin 14.5 g/dL (12.0-15.5) 13.1 g/dL (12.0-15.5) Hematocrit 44.5 % (36.0-47.0) 41.1 % (36.0-47.0) Mean Corpuscular Volume 95 fL (79-100) 95 fL (79-100) Mean Corpuscular Hemoglobin 31 pg (25-35) 30 pg (25-35) Mean Corpuscular Hemoglobin Concent 33 g/dL (31-37) 32 g/dL (31-37) Red Cell Distribution Width 14.5 % (11.5-14.5) 14.0 % (11.5-14.5) Platelet Count 155 x10^3/uL (140-400) 152 x10^3/uL (140-400) Neutrophils (%) (Auto) 69 % (31-73) 62 % (31-73) Lymphocytes (%) (Auto) 20 % (24-48) 26 % (24-48) Monocytes (%) (Auto) 7 % (0-9) 10 % (0-9) Eosinophils (%) (Auto) 3 % (0-3) 3 % (0-3) Basophils (%) (Auto) 1 % (0-3) 1 % (0-3) Neutrophils # (Auto) 4.1 x10^3uL (1.8-7.7) 4.9 x10^3uL (1.8-7.7) Lymphocytes # (Auto) 1.2 x10^3/uL (1.0-4.8) 2.0 x10^3/uL (1.0-4.8) Monocytes # (Auto) 0.4 x10^3/uL (0.0-1.1) 0.8 x10^3/uL (0.0-1.1) Eosinophils # (Auto) 0.2 x10^3/uL (0.0-0.7) 0.2 x10^3/uL (0.0-0.7) Basophils # (Auto) 0.0 x10^3/uL (0.0-0.2) 0.1 x10^3/uL (0.0-0.2) Sodium Level 142 mmol/L (136-145) 142 mmol/L (136-145) Potassium Level 3.5 mmol/L (3.5-5.1) 3.1 mmol/L (3.5-5.1) Chloride Level 102 mmol/L (98-107) 105 mmol/L (98-107) Carbon Dioxide Level 28 mmol/L (21-32) 28 mmol/L (21-32) Anion Gap 12 (6-14) 9 (6-14) Blood Urea Nitrogen 21 mg/dL (7-20) 16 mg/dL (7-20) Creatinine 1.1 mg/dL (0.6-1.0) 1.0 mg/dL (0.6-1.0) Estimated GFR (Cockcroft-Gault) 47.3 52.8 BUN/Creatinine Ratio 19 (6-20) Glucose Level 98 mg/dL (70-99) 78 mg/dL (70-99) Calcium Level 9.3 mg/dL (8.5-10.1) 8.7 mg/dL (8.5-10.1) Magnesium Level 2.1 mg/dL (1.8-2.4) Total Bilirubin 0.4 mg/dL (0.2-1.0) Aspartate Amino Transf (AST/SGOT) 71 U/L (15-37) Alanine Aminotransferase (ALT/SGPT) 57 U/L (14-59) Alkaline Phosphatase 37 U/L (46-116) Creatine Kinase 154 U/L (26-192) Creatine Kinase MB (Mass) 2.6 ng/mL (0.0-3.6) Creatine Kinase MB Relative Index 1.7 % (0-4) Troponin I Quantitative < 0.017 ng/mL (0.000-0.055) < 0.017 ng/mL (0.000-0.055) < 0.017 ng/mL (0.000-0.055) UB-Tab-C-Type Natriuretic Peptide 3391 pg/mL (0-449) Total Protein 7.4 g/dL (6.4-8.2) Albumin 3.8 g/dL (3.4-5.0) Albumin/Globulin Ratio 1.1 (1.0-1.7) Lipase 186 U/L (73-393) Triglycerides Level 62 mg/dL (0-150) Cholesterol Level 143 mg/dL (0-200) LDL Cholesterol, Calculated 79 mg/dL (0-100) VLDL Cholesterol, Calculated 12 mg/dL (0-40) Non-HDL Cholesterol Calculated 91 mg/dL (0-129) HDL Cholesterol 52 mg/dL (40-60) Cholesterol/HDL Ratio 2.8 Laboratory Tests Test 11/11/16 17:26 11/12/16 01:50 11/12/16 08:25 White Blood Count 6.0 x10^3/uL (4.0-11.0) 7.9 x10^3/uL (4.0-11.0) Red Blood Count 4.68 x10^6/uL (3.50-5.40) 4.32 x10^6/uL (3.50-5.40) Hemoglobin 14.5 g/dL (12.0-15.5) 13.1 g/dL (12.0-15.5) Hematocrit 44.5 % (36.0-47.0) 41.1 % (36.0-47.0) Mean Corpuscular Volume 95 fL (79-100) 95 fL (79-100) Mean Corpuscular Hemoglobin 31 pg (25-35) 30 pg (25-35) Mean Corpuscular Hemoglobin Concent 33 g/dL (31-37) 32 g/dL (31-37) Red Cell Distribution Width 14.5 % (11.5-14.5) 14.0 % (11.5-14.5) Platelet Count 155 x10^3/uL (140-400) 152 x10^3/uL (140-400) Neutrophils (%) (Auto) 69 % (31-73) 62 % (31-73) Lymphocytes (%) (Auto) 20 % (24-48) 26 % (24-48) Monocytes (%) (Auto) 7 % (0-9) 10 % (0-9) Eosinophils (%) (Auto) 3 % (0-3) 3 % (0-3) Basophils (%) (Auto) 1 % (0-3) 1 % (0-3) Neutrophils # (Auto) 4.1 x10^3uL (1.8-7.7) 4.9 x10^3uL (1.8-7.7) Lymphocytes # (Auto) 1.2 x10^3/uL (1.0-4.8) 2.0 x10^3/uL (1.0-4.8) Monocytes # (Auto) 0.4 x10^3/uL (0.0-1.1) 0.8 x10^3/uL (0.0-1.1) Eosinophils # (Auto) 0.2 x10^3/uL (0.0-0.7) 0.2 x10^3/uL (0.0-0.7) Basophils # (Auto) 0.0 x10^3/uL (0.0-0.2) 0.1 x10^3/uL (0.0-0.2) Sodium Level 142 mmol/L (136-145) 142 mmol/L (136-145) Potassium Level 3.5 mmol/L (3.5-5.1) 3.1 mmol/L (3.5-5.1) Chloride Level 102 mmol/L (98-107) 105 mmol/L (98-107) Carbon Dioxide Level 28 mmol/L (21-32) 28 mmol/L (21-32) Anion Gap 12 (6-14) 9 (6-14) Blood Urea Nitrogen 21 mg/dL (7-20) 16 mg/dL (7-20) Creatinine 1.1 mg/dL (0.6-1.0) 1.0 mg/dL (0.6-1.0) Estimated GFR (Cockcroft-Gault) 47.3 52.8 BUN/Creatinine Ratio 19 (6-20) Glucose Level 98 mg/dL (70-99) 78 mg/dL (70-99) Calcium Level 9.3 mg/dL (8.5-10.1) 8.7 mg/dL (8.5-10.1) Magnesium Level 2.1 mg/dL (1.8-2.4) Total Bilirubin 0.4 mg/dL (0.2-1.0) Aspartate Amino Transf (AST/SGOT) 71 U/L (15-37) Alanine Aminotransferase (ALT/SGPT) 57 U/L (14-59) Alkaline Phosphatase 37 U/L (46-116) Creatine Kinase 154 U/L (26-192) Creatine Kinase MB (Mass) 2.6 ng/mL (0.0-3.6) Creatine Kinase MB Relative Index 1.7 % (0-4) Troponin I Quantitative < 0.017 ng/mL (0.000-0.055) < 0.017 ng/mL (0.000-0.055) < 0.017 ng/mL (0.000-0.055) SG-Cug-O-Type Natriuretic Peptide 3391 pg/mL (0-449) Total Protein 7.4 g/dL (6.4-8.2) Albumin 3.8 g/dL (3.4-5.0) Albumin/Globulin Ratio 1.1 (1.0-1.7) Lipase 186 U/L (73-393) Triglycerides Level 62 mg/dL (0-150) Cholesterol Level 143 mg/dL (0-200) LDL Cholesterol, Calculated 79 mg/dL (0-100) VLDL Cholesterol, Calculated 12 mg/dL (0-40) Non-HDL Cholesterol Calculated 91 mg/dL (0-129) HDL Cholesterol 52 mg/dL (40-60) Cholesterol/HDL Ratio 2.8 Medications Current Medications Aspirin (Children'S Aspirin) 324 mg 1X ONCE PO ; Start 11/11/16 at 18:00; Stop 11/11/16 at 18:01; Status DC Nitroglycerin (Nitrostat) 0.4 mg PRN Q5MIN PRN SL CP RATING > 1/10 Last administered on 11/11/16 18:12; Start 11/11/16 at 17:45; Stop 11/12/16 at 17:44 Sodium Chloride 1,000 ml @ 100 mls/hr Q10H IV Last administered on 11/11/16 17 :48; Start 11/11/16 at 18:00; Stop 11/11/16 at 23:14; Status DC Multi-Ingredient Mouthwash/Gargle (Gi Cocktail Single Dose) 15 ml 1X ONCE SWSW Last administered on 11/11/16 17:51; Start 11/11/16 at 18:00; Stop 11/11/16 at 18:01; Status DC Ondansetron HCl (Zofran) 4 mg PRN Q8HRS PRN IV NAUSEA/VOMITING; Start 11/11/16 at 20:15; Stop 11/12/16 at 20:14 Sodium Chloride 1,000 ml @ 50 mls/hr Q20H IV ; Start 11/11/16 at 20:05; Stop 11/11/16 at 23:14; Status DC Apixaban (Eliquis) 5 mg BID PO Last administered on 11/12/16 09:30; Start at 09:00; Stop 11/12/16 at 12:29; Status DC Docusate Sodium (Colace) 100 mg PRN BID PRN PO CONSTIPATION; Start 11/11/16 at 23:00 Famotidine (Pepcid) 20 mg HS PO ; Start 11/12/16 at 21:00 Levothyroxine Sodium (Synthroid) 100 mcg DAILY07 PO Last administered on 06:34; Start 11/12/16 at 07:00 Lisinopril (Prinivil) 2.5 mg DAILY PO Last administered on 11/12/16 09:31; Start 11/12/16 at 09:00 Metoprolol Tartrate (Lopressor) 50 mg BID PO Last administered on 11/12/16 13: 30; Start 11/12/16 at 09:00 Tramadol HCl (Ultram) 50 mg Q6HRS PO ; Start 11/12/16 at 00:00; Stop 11/12/16 at 00:00; Status DC Hydrochlorothiazide (Hydrodiuril) 25 mg DAILY PO Last administered on 11/12/16 09:32; Start 11/12/16 at 09:00 Atorvastatin Calcium (Lipitor) 10 mg QHS PO ; Start 11/12/16 at 21:00 Sertraline HCl (Zoloft) 100 mg DAILY PO Last administered on 11/12/16 09:30; Start 11/12/16 at 09:00 Multi-Ingredient Mouthwash/Gargle (Gi Cocktail Single Dose) 15 ml 1X ONCE SWSW Last administered on 11/11/16 23:19; Start 11/11/16 at 23:30; Stop 11/11/16 at 23:31; Status DC Calcium Carbonate/ Glycine (Tums) 500 mg PRN AFTMEALHC PRN PO INDIGESTION; Start 11/11/16 at 23:00 Info (Anti-Coagulation Monitoring By Pharmacy) 1 each PRN DAILY PRN MC SEE COMMENTS Last administered on 11/12/16 04:53; Start 11/11/16 at 23:15 Tramadol HCl (Ultram) 50 mg PRN Q6HRS PRN PO MODERATE PAIN Last administered on 11/12/16 12:43; Start 11/12/16 at 00:00 Potassium Chloride (Klor-Con) 40 meq 1X ONCE PO Last administered on 11/12/16 09:29; Start 11/12/16 at 08:45; Stop 11/12/16 at 08:46; Status DC Regadenoson (Lexiscan) 0.4 mg 1X ONCE IV Last administered on 11/12/16 11:57; Start 11/12/16 at 10:45; Stop 11/12/16 at 10:46; Status DC Apixaban (Eliquis) 2.5 mg BID PO ; Start 11/12/16 at 21:00 Active Scripts Active Reported Colace (Docusate Sodium) 100 Mg Capsule 1 Cap PO BID PRN Unisom (Diphenhydramine Hcl) 50 Mg Capsule 50 Mg PO HS Hydrochlorothiazide Tablet (Hydrochlorothiazide) 12.5 Mg Tablet 2 Tab PO DAILY Eliquis (Apixaban) 2.5 Mg Tablet 5 Mg PO BID Famotidine 20 Mg Tablet 20 Mg PO HS Metoprolol Tartrate 50 Mg Tablet 50 Mg PO BID Ultram (Tramadol Hcl) 50 Mg Tablet 1 Tab PO Q6HRS Levothyroxine Sodium 100 Mcg Tablet 1 Tab PO DAILY Lisinopril 2.5 Mg Tablet 2.5 Mg PO DAILY Multi Vitamin Daily (Multivitamin) 1 Each Tablet 1 Each PO Zoloft (Sertraline Hcl) 100 Mg Tablet 100 Mg PO DAILY Lovastatin 40 Mg Tablet 40 Mg PO HS Vitals/I & O Vital Sign - Last 24 Hours 11/11/16 11/11/16 11/11/16 11/11/16 16:45 17:10 17:40 17:50 Temp 98.3 98.3 Pulse 117 117 114 121 Resp 15 12 18 B/P (MAP) 144/88 (106) 157/86 (109) 139/90 (106) 139/90 Pulse Ox 98 94 94 O2 Delivery Room Air Room Air 11/11/16 11/11/16 11/11/16 11/11/16 18:10 18:10 18:12 18:40 Pulse 115 108 99 99 Resp 14 16 12 B/P (MAP) 152/81 (104) 173/90 (117) 173/90 163/91 (115) Pulse Ox 97 96 11/11/16 11/11/16 11/11/16 11/11/16 19:10 20:15 20:15 23:19 Temp 97.5 97.5 Pulse 107 117 Resp 12 20 20 B/P (MAP) 161/88 (112) 151/100 (117) Pulse Ox 96 97 O2 Delivery Room Air Nasal Cannula O2 Flow Rate 2.0 11/11/16 11/12/16 11/12/16 11/12/16 23:30 00:19 03:00 07:00 Temp 97.6 98.0 97.4 97.6 98.0 97.4 Pulse 96 112 115 Resp 20 20 18 18 B/P (MAP) 153/85 (107) 115/57 (76) 152/82 (105) Pulse Ox 97 99 99 O2 Delivery Room Air Nasal Cannula Room Air O2 Flow Rate 2.0 11/12/16 11/12/16 11/12/16 11/12/16 08:00 09:31 12:43 13:30 Pulse 100 110 Resp 18 B/P (MAP) 135/81 131/73 Pulse Ox 99 O2 Delivery Nasal Cannula Nasal Cannula O2 Flow Rate 2.0 2.0 11/12/16 13:43 Pulse Ox 99 O2 Delivery Nasal Cannula O2 Flow Rate 2.0 Intake and Output 11/11/16 11/11/16 11/12/16 15:00 23:00 07:00 Intake Total 240 ml 400 ml Output Total 450 ml Balance 240 ml -50 ml KIM DIGGS MD Nov 12, 2016 15:23
[2016-11-12 19:30] VITALS: BP_SYST 116; BP_SYST 120; BP_SYST 121; BP_DIAS 60; BP_DIAS 64; BP_DIAS 67
[2016-11-12] MEDS: APIXABAN 2.5 MG TABLET. PO SCH (20:57)
[2016-11-12] MEDS: ATORVASTATIN CALCIUM 10 MG TABLET. PO SCH (20:57)
[2016-11-12] MEDS: FAMOTIDINE 20 MG TABLET. PO SCH (20:57)
[2016-11-12 23:35] VITALS: BP 128/67
[2016-11-13 03:30] VITALS: BP 93/58
[2016-11-13] MEDS: LEVOTHYROXINE 100 MCG TABLET PO SCH (06:31)
[2016-11-13 07:00] VITALS: BP 144/75
[2016-11-13] MEDS: APIXABAN 2.5 MG TABLET. PO SCH ×2 (08:50→20:13)
[2016-11-13] MEDS: hydroCHLOROthiazide 25 MG TABLET PO SCH (08:50)
[2016-11-13] MEDS: SERTRALINE 50 MG TABLET. PO SCH (08:50)
[2016-11-13] MEDS: LISINOPRIL 2.5 MG TABLET PO SCH (08:50)
[2016-11-13] MEDS: METOPROLOL TART IMMED RELEASE 50 MG TABLET. PO SCH ×2 (08:51→20:13)
--- NOTE | 2016-11-13 10:14 | PDOC ---
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, in chronic htn, hypoxia with exertion History of Present Illness History of Present Illness pain was better yesterday, wanted to go home mild hypoxia noted, some discrepancy due to fingernail paint, paint removed , and hypoxia worse than though PT eval, 6 min walk showed marked hypoxia with ambulating, hypoxic on 8 liters NC, pt has no prior 02 need, Vitals Vitals Vital Signs Date Time Temp Pulse Resp B/P (MAP) Pulse Ox O2 Delivery O2 Flow Rate FiO2 11/13/16 08:51 103 144/75 11/13/16 07:51 Nasal Cannula 2.0 11/13/16 07:00 98.2 20 99 98.2 Physical Exam General: Alert, Oriented X3, Cooperative, No acute distress Heart: Normal S1, Normal S2, Other (IRRR; tele AFIB with controlled ventricular rate) Lungs: Clear, Other Abdomen: Soft Extremities: No cyanosis, No edema, Normal pulses Skin: No significant lesion Review of Systems Review of Systems no pain no cough, no dyspnea Assessment and Plan Assessmemt and Plan pulm consult, Pulm nebs, inhl steroids, no prior known intrinsic lung problem, try to cont PT, and wean 02, dc when able to have a reasonable home 02 dose Problems: Comment Review of Relevant I have reviewed the following items ori (where applicable) has been applied. Labs Laboratory Tests Test 11/11/16 17:26 11/12/16 01:50 11/12/16 08:25 White Blood Count 6.0 x10^3/uL (4.0-11.0) 7.9 x10^3/uL (4.0-11.0) Red Blood Count 4.68 x10^6/uL (3.50-5.40) 4.32 x10^6/uL (3.50-5.40) Hemoglobin 14.5 g/dL (12.0-15.5) 13.1 g/dL (12.0-15.5) Hematocrit 44.5 % (36.0-47.0) 41.1 % (36.0-47.0) Mean Corpuscular Volume 95 fL (79-100) 95 fL (79-100) Mean Corpuscular Hemoglobin 31 pg (25-35) 30 pg (25-35) Mean Corpuscular Hemoglobin Concent 33 g/dL (31-37) 32 g/dL (31-37) Red Cell Distribution Width 14.5 % (11.5-14.5) 14.0 % (11.5-14.5) Platelet Count 155 x10^3/uL (140-400) 152 x10^3/uL (140-400) Neutrophils (%) (Auto) 69 % (31-73) 62 % (31-73) Lymphocytes (%) (Auto) 20 % (24-48) 26 % (24-48) Monocytes (%) (Auto) 7 % (0-9) 10 % (0-9) Eosinophils (%) (Auto) 3 % (0-3) 3 % (0-3) Basophils (%) (Auto) 1 % (0-3) 1 % (0-3) Neutrophils # (Auto) 4.1 x10^3uL (1.8-7.7) 4.9 x10^3uL (1.8-7.7) Lymphocytes # (Auto) 1.2 x10^3/uL (1.0-4.8) 2.0 x10^3/uL (1.0-4.8) Monocytes # (Auto) 0.4 x10^3/uL (0.0-1.1) 0.8 x10^3/uL (0.0-1.1) Eosinophils # (Auto) 0.2 x10^3/uL (0.0-0.7) 0.2 x10^3/uL (0.0-0.7) Basophils # (Auto) 0.0 x10^3/uL (0.0-0.2) 0.1 x10^3/uL (0.0-0.2) Sodium Level 142 mmol/L (136-145) 142 mmol/L (136-145) Potassium Level 3.5 mmol/L (3.5-5.1) 3.1 mmol/L (3.5-5.1) Chloride Level 102 mmol/L (98-107) 105 mmol/L (98-107) Carbon Dioxide Level 28 mmol/L (21-32) 28 mmol/L (21-32) Anion Gap 12 (6-14) 9 (6-14) Blood Urea Nitrogen 21 mg/dL (7-20) 16 mg/dL (7-20) Creatinine 1.1 mg/dL (0.6-1.0) 1.0 mg/dL (0.6-1.0) Estimated GFR (Cockcroft-Gault) 47.3 52.8 BUN/Creatinine Ratio 19 (6-20) Glucose Level 98 mg/dL (70-99) 78 mg/dL (70-99) Calcium Level 9.3 mg/dL (8.5-10.1) 8.7 mg/dL (8.5-10.1) Magnesium Level 2.1 mg/dL (1.8-2.4) Total Bilirubin 0.4 mg/dL (0.2-1.0) Aspartate Amino Transf (AST/SGOT) 71 U/L (15-37) Alanine Aminotransferase (ALT/SGPT) 57 U/L (14-59) Alkaline Phosphatase 37 U/L (46-116) Creatine Kinase 154 U/L (26-192) Creatine Kinase MB (Mass) 2.6 ng/mL (0.0-3.6) Creatine Kinase MB Relative Index 1.7 % (0-4) Troponin I Quantitative < 0.017 ng/mL (0.000-0.055) < 0.017 ng/mL (0.000-0.055) < 0.017 ng/mL (0.000-0.055) ZM-Yiy-N-Type Natriuretic Peptide 3391 pg/mL (0-449) Total Protein 7.4 g/dL (6.4-8.2) Albumin 3.8 g/dL (3.4-5.0) Albumin/Globulin Ratio 1.1 (1.0-1.7) Lipase 186 U/L (73-393) Triglycerides Level 62 mg/dL (0-150) Cholesterol Level 143 mg/dL (0-200) LDL Cholesterol, Calculated 79 mg/dL (0-100) VLDL Cholesterol, Calculated 12 mg/dL (0-40) Non-HDL Cholesterol Calculated 91 mg/dL (0-129) HDL Cholesterol 52 mg/dL (40-60) Cholesterol/HDL Ratio 2.8 Medications Current Medications Aspirin (Children'S Aspirin) 324 mg 1X ONCE PO ; Start 11/11/16 at 18:00; Stop 11/11/16 at 18:01; Status DC Nitroglycerin (Nitrostat) 0.4 mg PRN Q5MIN PRN SL CP RATING > 1/10 Last administered on 11/11/16 18:12; Start 11/11/16 at 17:45; Stop 11/12/16 at 17:44; Status DC Sodium Chloride 1,000 ml @ 100 mls/hr Q10H IV Last administered on 11/11/16 17 :48; Start 11/11/16 at 18:00; Stop 11/11/16 at 23:14; Status DC Multi-Ingredient Mouthwash/Gargle (Gi Cocktail Single Dose) 15 ml 1X ONCE SWSW Last administered on 11/11/16 17:51; Start 11/11/16 at 18:00; Stop 11/11/16 at 18:01; Status DC Ondansetron HCl (Zofran) 4 mg PRN Q8HRS PRN IV NAUSEA/VOMITING; Start 11/11/16 at 20:15; Stop 11/12/16 at 20:14; Status DC Sodium Chloride 1,000 ml @ 50 mls/hr Q20H IV ; Start 11/11/16 at 20:05; Stop 11/11/16 at 23:14; Status DC Apixaban (Eliquis) 5 mg BID PO Last administered on 11/12/16 09:30; Start at 09:00; Stop 11/12/16 at 12:29; Status DC Docusate Sodium (Colace) 100 mg PRN BID PRN PO CONSTIPATION; Start 11/11/16 at 23:00 Famotidine (Pepcid) 20 mg HS PO Last administered on 11/12/16 20:57; Start 11/12 at 21:00 Levothyroxine Sodium (Synthroid) 100 mcg DAILY07 PO Last administered on 06:31; Start 11/12/16 at 07:00 Lisinopril (Prinivil) 2.5 mg DAILY PO Last administered on 11/13/16 08:50; Start 11/12/16 at 09:00 Metoprolol Tartrate (Lopressor) 50 mg BID PO Last administered on 11/13/16 08: 51; Start 11/12/16 at 09:00 Tramadol HCl (Ultram) 50 mg Q6HRS PO ; Start 11/12/16 at 00:00; Stop 11/12/16 at 00:00; Status DC Hydrochlorothiazide (Hydrodiuril) 25 mg DAILY PO Last administered on 11/13/16 08:50; Start 11/12/16 at 09:00 Atorvastatin Calcium (Lipitor) 10 mg QHS PO Last administered on 11/12/16 20:57 ; Start 11/12/16 at 21:00 Sertraline HCl (Zoloft) 100 mg DAILY PO Last administered on 11/13/16 08:50; Start 11/12/16 at 09:00 Multi-Ingredient Mouthwash/Gargle (Gi Cocktail Single Dose) 15 ml 1X ONCE SWSW Last administered on 11/11/16 23:19; Start 11/11/16 at 23:30; Stop 11/11/16 at 23:31; Status DC Calcium Carbonate/ Glycine (Tums) 500 mg PRN AFTMEALHC PRN PO INDIGESTION; Start 11/11/16 at 23:00 Info (Anti-Coagulation Monitoring By Pharmacy) 1 each PRN DAILY PRN MC SEE COMMENTS Last administered on 11/12/16 04:53; Start 11/11/16 at 23:15 Tramadol HCl (Ultram) 50 mg PRN Q6HRS PRN PO MODERATE PAIN Last administered on 11/12/16 23:37; Start 11/12/16 at 00:00 Potassium Chloride (Klor-Con) 40 meq 1X ONCE PO Last administered on 11/12/16 09:29; Start 11/12/16 at 08:45; Stop 11/12/16 at 08:46; Status DC Regadenoson (Lexiscan) 0.4 mg 1X ONCE IV Last administered on 11/12/16 11:57; Start 11/12/16 at 10:45; Stop 11/12/16 at 10:46; Status DC Apixaban (Eliquis) 2.5 mg BID PO Last administered on 11/13/16 08:50; Start 11/12/16 at 21:00 Albuterol/ Ipratropium (Duoneb) 3 ml RTQID NEB ; Start 11/13/16 at 12:00; Status UNV Budesonide (Pulmicort) 0.5 mg RTBID NEB ; Start 11/13/16 at 20:00; Status UNV Budesonide (Pulmicort) 0.5 mg 1X ONCE NEB ; Start 11/13/16 at 10:15; Stop at 10:16; Status UNV Active Scripts Active Reported Colace (Docusate Sodium) 100 Mg Capsule 1 Cap PO BID PRN Unisom (Diphenhydramine Hcl) 50 Mg Capsule 50 Mg PO HS Hydrochlorothiazide Tablet (Hydrochlorothiazide) 12.5 Mg Tablet 2 Tab PO DAILY Eliquis (Apixaban) 2.5 Mg Tablet 5 Mg PO BID Famotidine 20 Mg Tablet 20 Mg PO HS Metoprolol Tartrate 50 Mg Tablet 50 Mg PO BID Ultram (Tramadol Hcl) 50 Mg Tablet 1 Tab PO Q6HRS Levothyroxine Sodium 100 Mcg Tablet 1 Tab PO DAILY Lisinopril 2.5 Mg Tablet 2.5 Mg PO DAILY Multi Vitamin Daily (Multivitamin) 1 Each Tablet 1 Each PO Zoloft (Sertraline Hcl) 100 Mg Tablet 100 Mg PO DAILY Lovastatin 40 Mg Tablet 40 Mg PO HS Vitals/I & O Vital Sign - Last 24 Hours 11/12/16 11/12/16 11/12/16 11/12/16 12:43 13:30 15:00 19:30 Temp 97.7 98.1 97.7 98.1 Pulse 110 94 106 Resp 18 19 18 B/P (MAP) 131/73 125/81 (96) 120/67 (84) Pulse Ox 99 96 97 O2 Delivery Nasal Cannula Room Air Nasal Cannula O2 Flow Rate 2.0 2.0 11/12/16 11/12/16 11/12/16 11/12/16 19:30 19:30 19:43 20:57 Pulse 110 111 111 B/P (MAP) 116/64 (81) 121/60 (80) 121/60 Pulse Ox 97 97 O2 Delivery Nasal Cannula Nasal Cannula Room Air O2 Flow Rate 2.0 2.0 11/12/16 11/12/16 11/13/16 11/13/16 23:35 23:37 00:49 03:30 Temp 97.8 97.9 97.8 97.9 Pulse 91 85 Resp 18 16 18 18 B/P (MAP) 128/67 (87) 93/58 (70) Pulse Ox 95 95 97 O2 Delivery Room Air Nasal Cannula Nasal Cannula Room Air O2 Flow Rate 2.0 2.0 11/13/16 11/13/16 11/13/16 11/13/16 07:00 07:51 08:50 08:51 Temp 98.2 98.2 Pulse 103 103 103 Resp 20 B/P (MAP) 144/75 (98) 144/75 144/75 Pulse Ox 99 O2 Delivery Room Air Nasal Cannula O2 Flow Rate 2.0 Intake and Output 11/12/16 11/12/16 11/13/16 15:00 23:00 07:00 Intake Total 0 ml 300 ml Balance 0 ml 300 ml KIM [email or web address] MD Nov 13, 2016 10:14
[2016-11-13] MEDS ORDERED: POTASSIUM CHLORIDE 20 MEQ TABLET.ER. PO ONE (10:30)
[2016-11-13 11:00] VITALS: BP 134/84
[2016-11-13] MEDS ORDERED: BUDESONIDE 0.5 MG/2 ML NEBU. NEB ONE (11:00)
[2016-11-13] MEDS: IPRATRPIUM/ALBUTEROL 0.5/2.5MG 3 ML NEBU. NEB SCH ×3 (12:01→19:22)
[2016-11-13 15:00] VITALS: BP 120/72
--- NOTE | 2016-11-13 15:24 | PDOC ---
PROGRESS NOTES Subjective Subjective The patient is feeling better this morning. Objective Objective Vital Signs Date Time Temp Pulse Resp B/P (MAP) Pulse Ox O2 Delivery O2 Flow Rate FiO2 11/13/16 12:04 99 Nasal Cannula 2.0 11/13/16 11:00 97.9 108 20 134/84 (101) 97.9 Intake and Output 11/13/16 07:00 Intake Total 300 ml Balance 300 ml Intake Oral 300 ml # Voids 2 Physical Exam Abdomen: Normal bowel sounds Heart: Regular rate General: No acute distress Lungs: Other (slightly decreased breath sounds) Assessment Assessment Chest pain. No acute EKG changes. Negative troponin. Echocardiogram from last March with an ejection fraction of 50-55%. Pain resolved. MPI shows no reversible ischemia or infarct. Paroxysmal atrial fibrillation. Device check last month revealed limited atrial fibrillation burden. Present be in atrial fibrillation with rate controlled on beta blockers. We'll continue anticoagulation. Sick sinus syndrome. Status post [employer] pacemaker. Recent interrogation with normal function. Controlled hypertension. Statins for hyperlipidemia. Compensated chronic diastolic heart failure. Controlled on present medical treatment. Hypokalemia. Replace and monitor. Gastroesophageal reflux disease on PPIs. Comment Review of Relevant I have reviewed the following items ori (where applicable) has been applied. Labs Laboratory Tests Test 11/11/16 17:26 11/12/16 01:50 11/12/16 08:25 White Blood Count 6.0 x10^3/uL (4.0-11.0) 7.9 x10^3/uL (4.0-11.0) Red Blood Count 4.68 x10^6/uL (3.50-5.40) 4.32 x10^6/uL (3.50-5.40) Hemoglobin 14.5 g/dL (12.0-15.5) 13.1 g/dL (12.0-15.5) Hematocrit 44.5 % (36.0-47.0) 41.1 % (36.0-47.0) Mean Corpuscular Volume 95 fL (79-100) 95 fL (79-100) Mean Corpuscular Hemoglobin 31 pg (25-35) 30 pg (25-35) Mean Corpuscular Hemoglobin Concent 33 g/dL (31-37) 32 g/dL (31-37) Red Cell Distribution Width 14.5 % (11.5-14.5) 14.0 % (11.5-14.5) Platelet Count 155 x10^3/uL (140-400) 152 x10^3/uL (140-400) Neutrophils (%) (Auto) 69 % (31-73) 62 % (31-73) Lymphocytes (%) (Auto) 20 % (24-48) 26 % (24-48) Monocytes (%) (Auto) 7 % (0-9) 10 % (0-9) Eosinophils (%) (Auto) 3 % (0-3) 3 % (0-3) Basophils (%) (Auto) 1 % (0-3) 1 % (0-3) Neutrophils # (Auto) 4.1 x10^3uL (1.8-7.7) 4.9 x10^3uL (1.8-7.7) Lymphocytes # (Auto) 1.2 x10^3/uL (1.0-4.8) 2.0 x10^3/uL (1.0-4.8) Monocytes # (Auto) 0.4 x10^3/uL (0.0-1.1) 0.8 x10^3/uL (0.0-1.1) Eosinophils # (Auto) 0.2 x10^3/uL (0.0-0.7) 0.2 x10^3/uL (0.0-0.7) Basophils # (Auto) 0.0 x10^3/uL (0.0-0.2) 0.1 x10^3/uL (0.0-0.2) Sodium Level 142 mmol/L (136-145) 142 mmol/L (136-145) Potassium Level 3.5 mmol/L (3.5-5.1) 3.1 mmol/L (3.5-5.1) Chloride Level 102 mmol/L (98-107) 105 mmol/L (98-107) Carbon Dioxide Level 28 mmol/L (21-32) 28 mmol/L (21-32) Anion Gap 12 (6-14) 9 (6-14) Blood Urea Nitrogen 21 mg/dL (7-20) 16 mg/dL (7-20) Creatinine 1.1 mg/dL (0.6-1.0) 1.0 mg/dL (0.6-1.0) Estimated GFR (Cockcroft-Gault) 47.3 52.8 BUN/Creatinine Ratio 19 (6-20) Glucose Level 98 mg/dL (70-99) 78 mg/dL (70-99) Calcium Level 9.3 mg/dL (8.5-10.1) 8.7 mg/dL (8.5-10.1) Magnesium Level 2.1 mg/dL (1.8-2.4) Total Bilirubin 0.4 mg/dL (0.2-1.0) Aspartate Amino Transf (AST/SGOT) 71 U/L (15-37) Alanine Aminotransferase (ALT/SGPT) 57 U/L (14-59) Alkaline Phosphatase 37 U/L (46-116) Creatine Kinase 154 U/L (26-192) Creatine Kinase MB (Mass) 2.6 ng/mL (0.0-3.6) Creatine Kinase MB Relative Index 1.7 % (0-4) Troponin I Quantitative < 0.017 ng/mL (0.000-0.055) < 0.017 ng/mL (0.000-0.055) < 0.017 ng/mL (0.000-0.055) CH-Enw-V-Type Natriuretic Peptide 3391 pg/mL (0-449) Total Protein 7.4 g/dL (6.4-8.2) Albumin 3.8 g/dL (3.4-5.0) Albumin/Globulin Ratio 1.1 (1.0-1.7) Lipase 186 U/L (73-393) Triglycerides Level 62 mg/dL (0-150) Cholesterol Level 143 mg/dL (0-200) LDL Cholesterol, Calculated 79 mg/dL (0-100) VLDL Cholesterol, Calculated 12 mg/dL (0-40) Non-HDL Cholesterol Calculated 91 mg/dL (0-129) HDL Cholesterol 52 mg/dL (40-60) Cholesterol/HDL Ratio 2.8 Medications Current Medications Aspirin (Children'S Aspirin) 324 mg 1X ONCE PO ; Start 11/11/16 at 18:00; Stop 11/11/16 at 18:01; Status DC Nitroglycerin (Nitrostat) 0.4 mg PRN Q5MIN PRN SL CP RATING > 10 Last administered on 11/11/16 18:12; Start 11/11/16 at 17:45; Stop 11/12/16 at 17:44; Status DC Sodium Chloride 1,000 ml @ 100 mls/hr Q10H IV Last administered on 11/11/16 17 :48; Start 11/11/16 at 18:00; Stop 11/11/16 at 23:14; Status DC Multi-Ingredient Mouthwash/Gargle (Gi Cocktail Single Dose) 15 ml 1X ONCE SWSW Last administered on 11/11/16 17:51; Start 11/11/16 at 18:00; Stop 11/11/16 at 18:01; Status DC Ondansetron HCl (Zofran) 4 mg PRN Q8HRS PRN IV NAUSEA/VOMITING; Start 11/11/16 at 20:15; Stop 11/12/16 at 20:14; Status DC Sodium Chloride 1,000 ml @ 50 mls/hr Q20H IV ; Start 11/11/16 at 20:05; Stop 11/11/16 at 23:14; Status DC Apixaban (Eliquis) 5 mg BID PO Last administered on 11/12/16 09:30; Start at 09:00; Stop 11/12/16 at 12:29; Status DC Docusate Sodium (Colace) 100 mg PRN BID PRN PO CONSTIPATION; Start 11/11/16 at 23:00 Famotidine (Pepcid) 20 mg HS PO Last administered on 11/12/16 20:57; Start 11/12 at 21:00 Levothyroxine Sodium (Synthroid) 100 mcg DAILY07 PO Last administered on 06:31; Start 11/12/16 at 07:00 Lisinopril (Prinivil) 2.5 mg DAILY PO Last administered on 11/13/16 08:50; Start 11/12/16 at 09:00 Metoprolol Tartrate (Lopressor) 50 mg BID PO Last administered on 11/13/16 08: 51; Start 11/12/16 at 09:00 Tramadol HCl (Ultram) 50 mg Q6HRS PO ; Start 11/12/16 at 00:00; Stop 11/12/16 at 00:00; Status DC Hydrochlorothiazide (Hydrodiuril) 25 mg DAILY PO Last administered on 11/13/16 08:50; Start 11/12/16 at 09:00 Atorvastatin Calcium (Lipitor) 10 mg QHS PO Last administered on 11/12/16 20:57 ; Start 11/12/16 at 21:00 Sertraline HCl (Zoloft) 100 mg DAILY PO Last administered on 11/13/16 08:50; Start 11/12/16 at 09:00 Multi-Ingredient Mouthwash/Gargle (Gi Cocktail Single Dose) 15 ml 1X ONCE SWSW Last administered on 11/11/16 23:19; Start 11/11/16 at 23:30; Stop 11/11/16 at 23:31; Status DC Calcium Carbonate/ Glycine (Tums) 500 mg PRN AFTMEALHC PRN PO INDIGESTION; Start 11/11/16 at 23:00 Info (Anti-Coagulation Monitoring By Pharmacy) 1 each PRN DAILY PRN MC SEE COMMENTS Last administered on 11/12/16 04:53; Start 11/11/16 at 23:15 Tramadol HCl (Ultram) 50 mg PRN Q6HRS PRN PO MODERATE PAIN Last administered on 11/12/16 23:37; Start 11/12/16 at 00:00 Potassium Chloride (Klor-Con) 40 meq 1X ONCE PO Last administered on 11/12/16 09:29; Start 11/12/16 at 08:45; Stop 11/12/16 at 08:46; Status DC Regadenoson (Lexiscan) 0.4 mg 1X ONCE IV Last administered on 11/12/16 11:57; Start 11/12/16 at 10:45; Stop 11/12/16 at 10:46; Status DC Apixaban (Eliquis) 2.5 mg BID PO Last administered on 11/13/16 08:50; Start 11/12/16 at 21:00 Albuterol/ Ipratropium (Duoneb) 3 ml RTQID NEB Last administered on 11/13/16 12 :01; Start 11/13/16 at 12:00 Budesonide (Pulmicort) 0.5 mg RTBID NEB ; Start 11/13/16 at 20:00 Budesonide (Pulmicort) 0.5 mg 1X ONCE NEB Last administered on 11/13/16 12:01 ; Start 11/13/16 at 11:00; Stop 11/13/16 at 11:01; Status DC Potassium Chloride (Klor-Con) 20 meq DAILYWBKFT PO ; Start 11/14/16 at 08:00 Potassium Chloride (Klor-Con) 20 meq 1X ONCE PO Last administered on 11/13/16 10:36; Start 11/13/16 at 10:30; Stop 11/13/16 at 10:31; Status DC Active Scripts Active Reported Colace (Docusate Sodium) 100 Mg Capsule 1 Cap PO BID PRN Unisom (Diphenhydramine Hcl) 50 Mg Capsule 50 Mg PO HS Hydrochlorothiazide Tablet (Hydrochlorothiazide) 12.5 Mg Tablet 2 Tab PO DAILY Eliquis (Apixaban) 2.5 Mg Tablet 5 Mg PO BID Famotidine 20 Mg Tablet 20 Mg PO HS Metoprolol Tartrate 50 Mg Tablet 50 Mg PO BID Ultram (Tramadol Hcl) 50 Mg Tablet 1 Tab PO Q6HRS Levothyroxine Sodium 100 Mcg Tablet 1 Tab PO DAILY Lisinopril 2.5 Mg Tablet 2.5 Mg PO DAILY Multi Vitamin Daily (Multivitamin) 1 Each Tablet 1 Each PO Zoloft (Sertraline Hcl) 100 Mg Tablet 100 Mg PO DAILY Lovastatin 40 Mg Tablet 40 Mg PO HS Vitals/I & O Vital Sign - Last 24 Hours 11/12/16 11/12/16 11/12/16 11/12/16 19:30 19:30 19:30 19:43 Temp 98.1 98.1 Pulse 106 110 111 Resp 18 B/P (MAP) 120/67 (84) 116/64 (81) 121/60 (80) Pulse Ox 97 97 97 O2 Delivery Nasal Cannula Nasal Cannula Nasal Cannula Room Air O2 Flow Rate 2.0 2.0 2.0 11/12/16 11/12/16 11/12/16 11/13/16 20:57 23:35 23:37 00:49 Temp 97.8 97.8 Pulse 111 91 Resp 18 16 18 B/P (MAP) 121/60 128/67 (87) Pulse Ox 95 95 O2 Delivery Room Air Nasal Cannula Nasal Cannula O2 Flow Rate 2.0 2.0 11/13/16 11/13/16 11/13/166/17 03:30 07:00 07:51 08:50 Temp 97.9 98.2 97.9 98.2 Pulse 85 103 103 Resp 18 20 B/P (MAP) 93/58 (70) 144/75 (98) 144/75 Pulse Ox 97 99 O2 Delivery Room Air Room Air Nasal Cannula O2 Flow Rate 2.0 11/13/16 11/13/16 11/13/16 08:51 11:00 12:04 Temp 97.9 97.9 Pulse 103 108 Resp 20 B/P (MAP) 144/75 134/84 (101) Pulse Ox 98 99 O2 Delivery Room Air Nasal Cannula O2 Flow Rate 2.0 Intake and Output 11/12/16 11/12/16 11/13/16 15:00 23:00 07:00 Intake Total 0 ml 300 ml Balance 0 ml 300 ml JENNIFER NAVARRETE MD Nov 13, 2016 15:24
[2016-11-13] MEDS: BUDESONIDE 0.5 MG/2 ML NEBU. NEB SCH (19:22)
[2016-11-13 19:35] VITALS: BP 113/70
[2016-11-13] MEDS: FAMOTIDINE 20 MG TABLET. PO SCH (20:13)
[2016-11-13] MEDS: ATORVASTATIN CALCIUM 10 MG TABLET. PO SCH (20:13)
[2016-11-13] MEDS: traMADol 50 MG TABLET PO PRN (20:16)
[2016-11-13] MEDS ORDERED: DIGOXIN IV 500 MCG/2 ML AMPUL. IV ONE (22:30)
[2016-11-13 23:35] VITALS: BP 106/46
[2016-11-14 03:35] VITALS: BP 120/72
[2016-11-14] MEDS: LEVOTHYROXINE 100 MCG TABLET PO SCH (06:12)
[2016-11-14 07:00] VITALS: BP 138/64
[2016-11-14] MEDS: IPRATRPIUM/ALBUTEROL 0.5/2.5MG 3 ML NEBU. NEB SCH ×4 (07:56→20:05)
[2016-11-14] MEDS: BUDESONIDE 0.5 MG/2 ML NEBU. NEB SCH ×2 (07:56→20:05)
[2016-11-14] MEDS: APIXABAN 2.5 MG TABLET. PO SCH ×2 (08:56→20:47)
[2016-11-14] MEDS: hydroCHLOROthiazide 25 MG TABLET PO SCH (08:56)
[2016-11-14] MEDS: POTASSIUM CHLORIDE 20 MEQ TABLET.ER. PO SCH (08:57)
[2016-11-14] MEDS: SERTRALINE 50 MG TABLET. PO SCH (08:57)
[2016-11-14] MEDS: METOPROLOL TART IMMED RELEASE 50 MG TABLET. PO SCH ×2 (08:58→20:47)
[2016-11-14] MEDS: LISINOPRIL 2.5 MG TABLET PO SCH (08:58)
[2016-11-14 11:00] VITALS: BP 128/66
--- NOTE | 2016-11-14 12:14 | PDOC ---
DORCAS MASTERS APRN 11/14/16 1214: CARDIO Progress Notes Date and Time Date of Service 11/14/16 Time of Evaluation 1210 Subjective Subjective: No Chest Pain, No shortness of breath, No Palpitations Comments: episode of AFIB with RVR overnight- responded well to Dig Vitals Vitals Vital Signs Date Time Temp Pulse Resp B/P (MAP) Pulse Ox O2 Delivery O2 Flow Rate FiO2 11/14/16 11:00 97.8 91 20 128/66 (86) 100 Nasal Cannula 97.8 11/14/16 08:00 2.0 Weight Weight [ ] Input and Output Intake and Output Intake and Output 11/14/16 07:00 Intake Total 300 ml Balance 300 ml Intake Oral 300 ml # Voids 4 Physical Exam HEENT: Neck Supple W Full Motion Chest: Symmetric LUNGS: Clear to Auscultation Heart: S1S2, no murmurs, irregularly irregular, other (ventricular rate intermittnetly elevated ) Abdomen: Soft N/T Extremities: No Edema, No Calf Tenderness Neurology: alert, oriented, follow commands Assessment Assessment 1. Chest pain, atypical 2. AFIB with RVR 3. SSS s/p [employer] pacemaker implantation 4. Hypertension 5. Hyperlipidemia 6. Chronic diastolic heart failure 7. Hypokalemia Recommendations Recheck BMP, Mg HR intermittently elevated. BP will likely not tolerate increasing BB. Responded well to Dig IV overnight, will add scheduled oral Dig. for better rate control Continue Eliquis for stroke prophylaxis. Supportive care May discharge from a CV standpoint later on this afternoon and f/u in our office with Dr. Coreas in 2-4 weeks. JIMBO COREAS MD 11/14/16 1641: CARDIO Progress Notes Plan Plan Patient seen and examined. Agree with above nurse practitioner note. We'll start digoxin to allow for better heart rate control and intermittent SVT control. Continue Eliquis as noted above. Supportive care. We'll follow-up in the office. DORCAS MASTERS APRN Nov 14, 2016 12:14 JIMBO COREAS MD Nov 14, 2016 16:41
[2016-11-14 14:17] LABS: CALCIUM 9.2 mg/dL (8.5-10.1); CREATININE 1.1 mg/dL (0.6-1.0); GFR 47.3; MAGNESIUM 1.7 mg/dL (1.8-2.4); POTASSIUM 3.6 mmol/L (3.5-5.1)
[2016-11-14] MEDS: DIGOXIN 125 MCG TABLET. PO SCH (14:23)
[2016-11-14 15:00] VITALS: BP 109/51
[2016-11-14] MEDS ORDERED: MAGN400T22 PO (15:09)
--- NOTE | 2016-11-14 15:28 | PDOC ---
Provider Note Provider Note dictated dyspnea/CP/hypoxia r/o PE/ 6 min walk ESA PERRY MD Nov 14, 2016 15:28
--- NOTE | 2016-11-14 16:39 | CONS ---
DATE OF CONSULTATION: ATTENDING PHYSICIAN: Dr. Tejal Weaver. REASON FOR CONSULTATION: Hypoxia. HISTORY OF PRESENT ILLNESS: The patient is an 85-year-old pleasant female who presented to the hospital with a severe central chest pain, which she described as heaviness. She says she was moving the apartment and did lift some weight . There was some associated dizziness. She states she is always short of breath, but she is not so sure why. She does not have a significant tobacco history. No history of deep vein thrombosis or pulmonary embolism. She had a previous echo in the past which showed moderate diastolic dysfunction with normal ejection fraction. Her chest x-ray showed cardiomegaly, but no obvious CHF. Reportedly, she had an ambulatory test yesterday, which I was told that she had hypoxia with exertion, but I could not find the results of 6-minute walk test. The patient states that she uses oxygen only at night, and not during the day. Consultation requested for further evaluation and management. PAST MEDICAL HISTORY: History of AFib; history of diastolic dysfunction, which is moderate with normal EF; history of sick sinus syndrome, status post pacemaker; history of peripheral vascular disease, status post subclavian stent; history of peptic ulcer disease; GERD. PAST SURGICAL HISTORY: Pacemaker. ALLERGIES: None. CURRENT MEDICATIONS: Reviewed as listed in the MRAD including bronchodilators. REVIEW OF SYSTEMS: Twelve-point systems obtained. Pertinent positives discussed in my history of present illness, otherwise noncontributory. All systems that were negative were reviewed as well. FAMILY HISTORY: Noncontributory to lungs. PHYSICAL EXAMINATION: VITAL SIGNS: Systolic blood pressure 109, pulse ox 100% on 2 liters. Afebrile. HEENT: Sclerae nonicteric. NECK: Supple. LUNGS: With diminished breath sounds. No crackles or wheezes. CARDIOVASCULAR: Regular rate. ABDOMEN: Soft, nontender. EXTREMITIES: With no pitting edema. LABORATORY DATA: Reviewed. White cell count is 7.9, hemoglobin 13.1 and platelets 152. BUN is 12, and creatinine 1.1. IMPRESSION: 1. Chest pain/heaviness which did come on when she was in the process of moving her apartment and lifting some weights. It appears to be muscular pain; however, the possibility of thromboembolic disease cannot be completely ruled out, especially when she had symptoms of some dizziness and reported exertional hypoxia. . Cardiology has already evaluated the patient and at this point, no further workup per their recommendation. I will obtain a V/Q scan or a CT angio if her creatinine allows to have the contrast. 2. No significant history of tobacco use. 3. Chronic compensated diastolic dysfunction/heart failure with no evidence of any acute congestive heart failure on chest x-ray. RECOMMENDATION: 1. We will obtain a CTA chest. 2. Wean oxygen. 3. Six-minute walk test. 4. Follow Cardiology recommendations. 5. If the CT of chest is negative, then she could be discharged home. We will follow along with you. ESA PERRY MD DR: LIZ/breanna JOB#: [id number] / [id number] KRYSTINA
[2016-11-14] MEDS: ANTI-COAG MONITOR BY PHARMACY. MC PRN (17:13)
[2016-11-14] MEDS ORDERED: CONTRAST GIVEN MC PRN (17:30)
[2016-11-14] MEDS ORDERED: IOHEXOL 300 MG/ML 75 ML VIAL IV ONE ×2 (17:30→19:00)
--- NOTE | 2016-11-14 19:31 | RAD ---
CT CHEST WITH CONTRAST, PULMONARY ANGIOGRAM History: CP, DYSPNEA, R/O PE Comparison: None. Technique: Helical CT of the chest was performed after the administration of 60 cc of Isovue 370 intravenous contrast according to PE protocol. Axial and coronal reconstructions were obtained. 3-D MIP images were constructed to better evaluate the pulmonary arteries. RS compliance statement: One or more of the following individualized dose reduction techniques were utilized for this examination: 1. Automated exposure control 2. Adjustment of the mA and/or kV according to patient size 3. Use of iterative reconstruction technique Findings: Pulmonary arteries are adequately opacified. There is no evidence of pulmonary embolism within the main, lobar, segmental and visualized subsegmental arteries. The thoracic aorta appears normal in caliber with diffuse atherosclerotic calcification. Coronary artery calcifications also present. There is rounded soft tissue density present within the subcarinal region measuring up to 2.7 cm in size, may represent an enlarged mediastinal lymph node. No additional enlarged mediastinal or hilar lymphadenopathy is seen. No pericardial effusion is present, heart appears mildly enlarged. No focal consolidation, pleural effusion or pneumothorax is seen. Scattered atelectasis is present within the right middle lobe, lingula and left lung base. Right apical scarring is present, with mild subpleural opacity likely scarring or atelectasis along the lateral right pleural surface. Central airways remain patent. Visualized upper abdomen demonstrates no acute finding. There is reflux of contrast within the IVC and hepatic veins, suggesting right heart dysfunction. IMPRESSION: 1. No CT evidence of pulmonary embolus or other acute cardiothoracic process. 2. No focal consolidation. Scattered atelectasis and scarring present. 3. Rounded soft tissue nodule in the subcarinal region may represent an enlarged subcarinal lymph node. No additional lymphadenopathy seen. 4. Findings suggestive of right heart dysfunction, with mild cardiomegaly. Diffuse atherosclerotic calcifications present. Electronically signed by: Janet Escobar MD (11/14/2016 7:27 PM) [facility]
[2016-11-14 19:53] VITALS: BP 141/79
[2016-11-14] MEDS: traMADol 50 MG TABLET PO PRN (20:47)
[2016-11-14] MEDS: FAMOTIDINE 20 MG TABLET. PO SCH (20:47)
[2016-11-14] MEDS: ATORVASTATIN CALCIUM 10 MG TABLET. PO SCH (20:47)
[2016-11-14 22:51] VITALS: BP 122/58
[2016-11-15 03:23] VITALS: BP 120/67
[2016-11-15] MEDS: traMADol 50 MG TABLET PO PRN (03:54)
[2016-11-15] MEDS: LEVOTHYROXINE 100 MCG TABLET PO SCH (06:31)
[2016-11-15 07:00] VITALS: BP 147/75
[2016-11-15] MEDS: ANTI-COAG MONITOR BY PHARMACY. MC PRN (07:53)
[2016-11-15] MEDS: IPRATRPIUM/ALBUTEROL 0.5/2.5MG 3 ML NEBU. NEB SCH ×3 (08:03→16:50)
[2016-11-15] MEDS: BUDESONIDE 0.5 MG/2 ML NEBU. NEB SCH (08:03)
[2016-11-15] MEDS: hydroCHLOROthiazide 25 MG TABLET PO SCH (08:38)
[2016-11-15] MEDS: POTASSIUM CHLORIDE 20 MEQ TABLET.ER. PO SCH (08:38)
[2016-11-15] MEDS: SERTRALINE 50 MG TABLET. PO SCH (08:38)
[2016-11-15] MEDS: METOPROLOL TART IMMED RELEASE 50 MG TABLET. PO SCH (08:39)
[2016-11-15] MEDS: APIXABAN 2.5 MG TABLET. PO SCH (08:39)
[2016-11-15] MEDS: LISINOPRIL 2.5 MG TABLET PO SCH (08:40)
[2016-11-15] MEDS: DIGOXIN 125 MCG TABLET. PO SCH (08:40)
[2016-11-15 11:00] VITALS: BP 114/62
--- NOTE | 2016-11-15 12:13 | PDOC ---
PULMONARY PROGRESS NOTES Subjective breathing better Vitals Vital Signs Date Time Temp Pulse Resp B/P (MAP) Pulse Ox O2 Delivery O2 Flow Rate FiO2 11/15/16 11:04 Nasal Cannula 2.0 11/15/16 08:40 106 147/75 11/15/16 07:00 97.4 20 100 97.4 General: Alert, No acute distress Lungs: Clear, Other Cardiovascular: S1 Abdomen: Soft Neuro Exam: Alert Extremities: No Edema Skin: Warm Labs Laboratory Tests Test 11/14/16 13:55 Sodium Level 141 mmol/L (136-145) Potassium Level 3.6 mmol/L (3.5-5.1) Chloride Level 102 mmol/L (98-107) Carbon Dioxide Level 30 mmol/L (21-32) Anion Gap 9 (6-14) Blood Urea Nitrogen 12 mg/dL (7-20) Creatinine 1.1 mg/dL (0.6-1.0) Estimated GFR (Cockcroft-Gault) 47.3 Glucose Level 131 mg/dL (70-99) Calcium Level 9.2 mg/dL (8.5-10.1) Magnesium Level 1.7 mg/dL (1.8-2.4) Laboratory Tests Test 11/14/16 13:55 Sodium Level 141 mmol/L (136-145) Potassium Level 3.6 mmol/L (3.5-5.1) Chloride Level 102 mmol/L (98-107) Carbon Dioxide Level 30 mmol/L (21-32) Anion Gap 9 (6-14) Blood Urea Nitrogen 12 mg/dL (7-20) Creatinine 1.1 mg/dL (0.6-1.0) Estimated GFR (Cockcroft-Gault) 47.3 Glucose Level 131 mg/dL (70-99) Calcium Level 9.2 mg/dL (8.5-10.1) Magnesium Level 1.7 mg/dL (1.8-2.4) Medications Active Scripts Medications Dose Route/Sig Max Daily Dose Days Date Category Colace (Docusate Sodium) 100 Mg Capsule 1 Cap PO BID PRN 11/11/16 Reported Unisom (Diphenhydramine Hcl) 50 Mg Capsule 50 Mg PO HS 11/11/16 Reported Hydrochlorothiazide Tablet (Hydrochlorothiazide) 12.5 Mg Tablet 2 Tab PO DAILY 11/11/16 Reported Eliquis (Apixaban) 2.5 Mg Tablet 5 Mg PO BID 03/11/16 Reported Famotidine 20 Mg Tablet 20 Mg PO HS 03/11/16 Reported Metoprolol Tartrate 50 Mg Tablet 50 Mg PO BID 03/11/16 Reported Ultram (Tramadol Hcl) 50 Mg Tablet 1 Tab PO Q6HRS 03/09/16 Reported Levothyroxine Sodium 100 Mcg Tablet 1 Tab PO DAILY 03/09/16 Reported Lisinopril 2.5 Mg Tablet 2.5 Mg PO DAILY 12/31/13 Reported Multi Vitamin Daily (Multivitamin) 1 Each Tablet 1 Each PO 12/31/13 Reported Zoloft (Sertraline Hcl) 100 Mg Tablet 100 Mg PO DAILY 12/31/13 Reported Lovastatin 40 Mg Tablet 40 Mg PO HS 12/31/13 Reported Impression . 1. Chest pain/heaviness . CT angio with no PE , suspect atypical pain 2. No significant history of tobacco use. 3. Chronic compensated diastolic dysfunction/heart failure with no evidence of any acute congestive heart failure on chest x-ray. 4. Abnormal ct chest with sub-carinal soft tissue mass. h/o choking with food. ? esophageal mass, ? Bronchogenic cyst, appearance less likely of sub-carinal LN. will ask GI to see Plan . 1. 6 min walk test 2. Wean oxygen. 3. GI consult, May need EGD, can be done as OP 4. Follow Cardiology recommendations. 5. d/e RN/GI ESA CAMACHO MD Nov 15, 2016 12:13
[2016-11-15] MEDS ORDERED: DIGO125T PO ×2 (13:54→15:20)
--- NOTE | 2016-11-15 14:50 | PDOC2 ---
GI CONSULT Reason For Consult: Upper GI, difficulty swallowing HPI: HPI: 85 y/o admitted w/ chest pain which began last week while she was lifting during the process of moving to assisted living. Evaluated by cardiology and also pulmonology for hypoxia. Workup as below, note abnormal CT chest w/ sub- carinal soft tissue mass. Plans to DC today, GI asked to see re: outpt EGD for dysphagia. She has a h/o intermittent heartburn for which she takes Zantac PRN. Was recently "spitting up a lot of bile" and had some nausea prior to admission; currently denies n/v. Regarding dysphagia, she actually denied this and weight loss when we saw her in 02/2016; however, now she reports a weight loss of 50 pounds over the last year and "swallowing issues" for years. She says "it's hard" to swallow solids, liquids, and pills; she has a fear of choking. The last time she had difficulty with this was while at her daughter's house on [facility]. She says she feels full often and does not eat much as a result. Denies diarrhea, constipation, hematemesis, hematochezia, melena. Reports normal colonoscopy ~5 years ago and previous EGD long ago. She believes she has a history of an ulcer although it's unclear if this was actually diagnosed or just suspected. PMH: PMH: A Fib, CHF, HTN, HLD, SSS s/p pacemaker, PVD s/p subclavian stent, GERD, ?PUD, anxiety/depression, OA, hypothyroidism, pacemaker, right knee surgery, left breast lumpectomy FH: Family History: No pertinent hx Social History: Smoke: No ALCOHOL: none Drugs: None ROS: GEN: Denies fevers, chills, sweats HEENT: Denies blurred vision, sore throat CV: +chest pain RESP: +SOA GI: Per HPI : Denies hematuria, dysuria ENDO: +weight loss NEURO: Denies confusion, dizziness MSK: Denies weakness, joint pain/swelling SKIN: Denies jaundice, pruritus Vitals: Vitals: Vital Signs Date Time Temp Pulse Resp B/P (MAP) Pulse Ox O2 Delivery O2 Flow Rate FiO2 11/15/16 11:04 Nasal Cannula 2.0 11/15/16 11:00 97.9 118 19 114/62 (98) 98 97.9 Labs: Labs: Please see EMR. Allergies: Coded Allergies: No Known Drug Allergies (Unverified , 12/31/13) Medications: Current Medications Medications (Trade) Dose Ordered Sig/Jess Route PRN Reason Start Time Stop Time Status Last Admin Dose Admin Iohexol (Omnipaque 300 Mg/ml) 75 ml 1X ONCE IV 11/14/16 17:30 11/14/16 17:31 DC 11/14/16 17:30 Imaging: Imaging: CXR IMPRESSION: No acute finding. No significant change. MPI Conclusion 1. No EKG evidence of stress-induced ischemia. 2. Nuclear imaging shows no reversible ischemia or infarct. 3. Mildly decreased ejection fraction at 47% in the setting of atrial fibrillation. 4. Low to moderately low risk Lexiscan nuclear stress test. Chest CTA IMPRESSION: 1. No CT evidence of pulmonary embolus or other acute cardiothoracic process. 2. No focal consolidation. Scattered atelectasis and scarring present. 3. Rounded soft tissue nodule in the subcarinal region may represent an enlarged subcarinal lymph node. No additional lymphadenopathy seen. 4. Findings suggestive of right heart dysfunction, with mild cardiomegaly. Diffuse atherosclerotic calcifications present. PE: GEN: NAD HEENT: Atraumatic, PERRL LUNGS: CTAB HEART: irregularly irregular, pacemaker ABD: NABS, S/ND/NT EXTREMITY: No edema SKIN: No rashes, no jaundice NEURO/PSYCH: A & O 3 A/P: A/P: Atypical chest pain -note h/o A Fib on Eliquis Abnormal CTA chest -sub-carinal soft tissue mass GERD -intermittent heartburn -did have some "spitting up bile" recently, also notes early satiety Dysphagia/globus, choking -apparently long history of this, difficulty with all consistencies, last notable episode in the spring Weight loss CRC screen -last colonoscopy ~5 years ago -- Seems would benefit from H2 jennifer QD (instead of PRN) or PPI QD. Considering swallowing issues and h/o GERD and abnormal CTA chest, should have EGD - can proceed w/ this as outpt. Our office can arrange. UPDATE: Per office records, EGD in 2012 w/ gastric ulcer and esophagitis. Left written Rx for PPI w/ FIONA MUNOZ Nov 15, 2016 14:50
[2016-11-15 15:00] VITALS: BP 135/59
--- NOTE | 2016-11-15 21:02 | PDOC ---
PROGRESS NOTES Chief Complaint Chief Complaint plz note: late entry note, pt seen on 11/14/16 at 1400 Chest pain, SOB ASSESSMENT AND PLAN: 1. Chest pain: resolved 2. PEREZ: severe O2 demand at 6 min walk. delay d/c. Pulm following 3. GERD: stable 3. Afib: rate controlled 4. CHF: chronic diastolic 5. HTN: well controlled 6. CKD3: creat stable History of Present Illness History of Present Illness feels much improved. eager to go home Vitals Vitals Vital Signs Date Time Temp Pulse Resp B/P (MAP) Pulse Ox O2 Delivery O2 Flow Rate FiO2 11/15/16 16:46 98 Room Air 11/15/16 15:00 98.2 62 18 135/59 (84) 98.2 11/15/16 11:04 2.0 Physical Exam General: Alert, Oriented X3, Cooperative, No acute distress Heart: Regular rate Lungs: Clear Abdomen: Normal bowel sounds Extremities: No cyanosis, No edema, Normal pulses Skin: No significant lesion MIGUEL CRAIN MD Nov 15, 2016 21:02
--- NOTE | 2016-11-15 22:47 | DS ---
DATE OF DISCHARGE: 11/15/2016 CHIEF COMPLAINT: Chest pain and dyspnea. HOSPITAL COURSE: The patient is an 85-year-old woman with known history of AFib, CHF who presented to the Emergency Room with chest pain that started when she was assisting lifting with her boxes during her move to an assisted living facility. With fairly typical associated symptoms, she was admitted to the CVICU for further monitoring. Cardiology consult was obtained with her past medical history. She, however, ruled out for acute cardiac syndrome. Recent echo had shown a normal EF and an MPI was therefore undertaken to delineate her risk factors. This, however, was within normal limits and the patient was deemed stable from a cardiac standpoint for discharge. From a paroxysmal atrial fibrillation standpoint, her pacer was evaluated and was found to be appropriate. The rate on her atrial fibrillation was controlled with beta jennifer and she was continued on Eliquis for stroke prevention. Her other chronic issues including hypertension, hyperlipidemia and chronic diastolic congestive heart failure remained completely stable during hospitalization. Hypokalemia and hypomagnesemia were replaced with normalization of her electrolytes. For her respiratory issues, Pulmonary was consulted. A 6-minute walk initially revealed her requiring 8 liters of oxygen. Two days later, a repeat study actually showed that she did not require any oxygen without any symptoms on room air. She was therefore discharged on 11/15/2016. DISCHARGE PHYSICAL EXAMINATION: VITAL SIGNS: Show a blood pressure of 152/82, heart rate of 115, respiratory rate at 20. She is afebrile. GENERAL: This is a slim 85-year-old woman, alert and oriented, in no acute distress. LUNGS: Clear. HEART: Regular rate and rhythm. ABDOMEN: Has positive bowel sounds, soft, nontender. EXTREMITIES: Show no edema. DISCHARGE DATE: 11/15/2016. DISCHARGE DIAGNOSIS: Noncardiac chest pain, suspected chest wall pain from muscle sprain. DISCHARGE DISPOSITION: To home. DISCHARGE CONDITION: Improved. DISCHARGE MEDICATIONS: Please refer to MAR. DISCHARGE INSTRUCTIONS: The patient will follow up with Cardiology as well as her primary care physician in 1-2 weeks. MIGUEL CRAIN MD DR: ELHAM/nts JOB#: [id number] / [id number] MONI Thorpe MD
== END 2016-11-15 17:22 | disposition home or self-care (01) | DRG 563 ==
LOC: ER 16:38 → 2 SOUTH 18:57
PROVIDERS: ADMIT Internal Medicine; ATTEND Internal Medicine
DX: S29.011A Strain of muscle and tendon of front wall of thorax, initial encounter (principal); I13.0 Hypertensive heart and chronic kidney disease with heart failure and stage 1 through stage 4 chronic kidney disease, or unspecified chronic kidney disease; I50.32 Chronic diastolic (congestive) heart failure; K21.9 Gastro-esophageal reflux disease without esophagitis; E87.6 Hypokalemia; E83.42 Hypomagnesemia; F32.9 Major depressive disorder, single episode, unspecified; F41.9 Anxiety disorder, unspecified; E78.5 Hyperlipidemia, unspecified; X58.XXXA Exposure to other specified factors, initial encounter; E03.9 Hypothyroidism, unspecified; N18.3 Chronic kidney disease, stage 3 (moderate); I48.0 Paroxysmal atrial fibrillation; I73.9 Peripheral vascular disease, unspecified; R13.10 Dysphagia, unspecified; M19.90 Unspecified osteoarthritis, unspecified site; I49.5 Sick sinus syndrome; R09.02 Hypoxemia; Z79.899 Other long term (current) drug therapy; Z79.01 Long term (current) use of anticoagulants; Z87.11 Personal history of peptic ulcer disease; Z95.0 Presence of cardiac pacemaker; Z79.1 Long term (current) use of non-steroidal anti-inflammatories (NSAID); Z98.49 Cataract extraction status, unspecified eye; Y93.89 Activity, other specified; Y92.89 Other specified places as the place of occurrence of the external cause; Y99.8 Other external cause status; Z79.82 Long term (current) use of aspirin
CPT/HCPCS: 36415; 71010; 71275; 78452; 80048; 80053; 80061; 82553; 83690; 83735; 83880; 84484; 85027; 93005; 93017; 94250; 94620; 94640; 94760; 96360; 96361; 96374; 96375; 96376; A9500; J1160; J2785; J7030; J7620; J7626; Q9967; 97116; 99285-25

== ENCOUNTER → 2017-07-19 | Outpatient (CLI) | payer MEDICARE, OTHER ==
[2017-07-19] MEDS: ZOLPIDEM 5 MG TABLET. PO (22:30)
== END | disposition home or self-care (01) ==
LOC: RT 18:29
DX: G47.34 Idiopathic sleep related nonobstructive alveolar hypoventilation (principal)
CPT/HCPCS: 95810

== ENCOUNTER 2018-11-20 13:19 | Inpatient (IN) | payer MEDICAID, MEDICARE, OTHER ==
[~2018-11-20] VITALS: Ht 162.6 cm; Wt 49.9 kg
[~2018-11-20 13:19] MED LIST changes: +DIGO125T PO; +DIPH50CA59 PO; +DOCU-109 PO; +HYDR12.58 PO; +MAGN400T22 PO; -METO50TA2 PO; +METO50TA6 PO; -POTA20PA PO; +POTA20PA30 PO
--- NOTE | 2018-11-20 13:40 | PHYS DOC ---
Past Medical History Past Medical History: A-Fib, GERD, Hypertension, Hypothyroid, Renal Disease Past Surgical History: Pacemaker, Other Additional Past Surgical Histo: A- PACED, CATERACT, LEFT BREAST BIOPSY Alcohol Use: None Drug Use: None Adult General Chief Complaint Chief Complaint: CHEST PAIN HPI HPI Patient is a 87 year old female that presents to ER with chest pain is vital for 2 weeks, but then states she's been having increasing shortness breath the last 2 days the patient is on 2 L of oxygen at baseline. The patient also states she's been having a cough has been ongoing for a couple weeks. Denies a history of congestive heart failure. Rates her pain as 10 out of 10 and sharp movement, but 3 out of 10 when not moving. Has a history of atrial fibrillation, and is on Eliquis for this. Review of Systems Review of Systems Constitutional: Denies fever or chills [] Eyes: Denies change in visual acuity, redness, or eye pain [] HENT: Denies nasal congestion or sore throat [] Respiratory: Reports cough and shortness of breath [] Cardiovascular: No additional information not addressed in HPI [] GI: Denies abdominal pain, nausea, vomiting, bloody stools or diarrhea [] : Denies dysuria or hematuria [] Musculoskeletal: Denies back pain or joint pain [] Integument: Denies rash or skin lesions [] Neurologic: Denies headache, focal weakness or sensory changes [] Endocrine: Denies polyuria or polydipsia [] Complete systems were reviewed and found to be within normal limits, except as documented in this note. Current Medications Current Medications Current Medications Medications (Trade) Dose Ordered Sig/Jess Start Time Stop Time Status Last Admin Dose Admin Acetaminophen (Tylenol) 500 mg PRN Q6HRS PRN 11/20/18 15:30 UNV Acetaminophen/ Codeine Phosphate (Tylenol #3) 1 tab PRN Q6HRS PRN 11/20/18 15:30 UNV Albuterol Sulfate (Ventolin Neb Soln) 2.5 mg PRN Q4HRS PRN 11/20/18 15:30 UNV Apixaban (Eliquis) 5 mg BID 11/20/18 21:00 UNV Azithromycin (Zithromax) 500 mg 1X ONCE 11/20/18 15:30 11/20/18 15:31 Ceftriaxone Sodium (Rocephin) 1 gm Q24H 11/20/18 15:30 UNV Digoxin (Lanoxin) 125 mcg DAILY 11/21/18 09:00 UNV Diltiazem HCl (Cardizem Iv Push) 10 mg 1X ONCE 11/20/18 13:45 11/20/18 13:46 DC 11/20/18 13:48 10 MG Diltiazem HCl 125 mg/Dextrose 125 ml @ 5 mls/hr 1X ONCE 11/20/18 14:00 11/20/18 14:49 DC Docusate Sodium (Colace) 100 mg BID PRN 11/20/18 15:30 UNV Famotidine (Pepcid) 20 mg HS 11/20/18 21:00 UNV Guaifenesin (Robitussin Dm) 10 ml QID 11/20/18 17:00 UNV Levothyroxine Sodium (Synthroid) 100 mcg DAILY 11/21/18 09:00 UNV Magnesium Oxide (Magnesium Oxide) 400 mg BID 11/20/18 21:00 UNV Metoprolol Tartrate (Lopressor) 50 mg BID 11/20/18 21:00 UNV Morphine Sulfate (Morphine Sulfate) 1 mg PRN Q2HR PRN 11/20/18 15:30 UNV Multivitamins (Thera M Plus) 1 tab DAILY 11/21/18 09:00 UNV Non-Formulary Medication (Diphenhydramine Hcl (Unisom)) 50 mg HS 11/20/18 21:00 UNV Non-Formulary Medication (Hydrochlorothiazide (Hydrochlorothiazide Tablet)) 2 tab DAILY 11/21/18 09:00 UNV Non-Formulary Medication (Lisinopril ) 2.5 mg DAILY 11/21/18 09:00 UNV Non-Formulary Medication (Lovastatin ) 40 mg HS 11/20/18 21:00 UNV Non-Formulary Medication (Sertraline Hcl (Zoloft)) 100 mg DAILY 11/21/18 09:00 UNV Ondansetron HCl (Zofran) 4 mg PRN Q6HRS PRN 11/20/18 15:30 UNV Sodium Chloride 500 ml @ 500 mls/hr 1X ONCE 11/20/18 13:45 11/20/18 14:44 DC 11/20/18 13:50 500 MLS/HR Tramadol HCl (Ultram) 50 mg Q6HRS 11/20/18 18:00 UNV Allergies Allergies Allergies Coded Allergies Type Severity Reaction Last Updated Verified No Known Drug Allergies 12/31/13 No Physical Exam Physical Exam Constitutional: Well developed, well nourished, no acute distress, non-toxic appearance. [] HENT: Normocephalic, atraumatic, bilateral external ears normal, oropharynx moist, no oral exudates, nose normal. [] Eyes: PERRLA, EOMI, conjunctiva normal, no discharge. [] Neck: Normal range of motion, no tenderness, supple, no stridor. [] Cardiovascular:Heart rate irregular rhythm and tachycardic, no murmur [] Lungs & Thorax: Bilateral breath sounds clear to auscultation [] Abdomen: Bowel sounds normal, soft, no tenderness, no masses, no pulsatile masses. [] Skin: Warm, dry, no erythema, no rash. [] Back: No tenderness, no CVA tenderness. [] Extremities: No tenderness, no cyanosis, no clubbing, ROM intact, no edema. [] Neurologic: Alert and oriented X 3, normal motor function, normal sensory function, no focal deficits noted. [] Psychologic: Affect normal, judgement normal, mood normal. [] Current Patient Data Vital Signs Vital Signs Date Time Temp Pulse Resp B/P (MAP) Pulse Ox O2 Delivery O2 Flow Rate FiO2 11/20/18 13:48 127 175/103 11/20/18 13:38 97.6 20 98 Nasal Cannula 2.0 97.6 Lab Values Laboratory Tests Test 11/20/18 13:32 White Blood Count 6.3 x10^3/uL (4.0-11.0) Red Blood Count 4.15 x10^6/uL (3.50-5.40) Hemoglobin 13.7 g/dL (12.0-15.5) Hematocrit 40.8 % (36.0-47.0) Mean Corpuscular Volume 98 fL (79-100) Mean Corpuscular Hemoglobin 33 pg (25-35) Mean Corpuscular Hemoglobin Concent 34 g/dL (31-37) Red Cell Distribution Width 15.1 % (11.5-14.5) H Platelet Count 146 x10^3/uL (140-400) Neutrophils (%) (Auto) 63 % (31-73) Lymphocytes (%) (Auto) 26 % (24-48) Monocytes (%) (Auto) 8 % (0-9) Eosinophils (%) (Auto) 2 % (0-3) Basophils (%) (Auto) 0 % (0-3) Neutrophils # (Auto) 4.0 x10^3/uL (1.8-7.7) Lymphocytes # (Auto) 1.6 x10^3/uL (1.0-4.8) Monocytes # (Auto) 0.5 x10^3/uL (0.0-1.1) Eosinophils # (Auto) 0.1 x10^3/uL (0.0-0.7) Basophils # (Auto) 0.0 x10^3/uL (0.0-0.2) Prothrombin Time 18.4 SEC (11.7-14.0) H Prothrombin Time INR 1.6 (0.8-1.1) H Activated Partial Thromboplast Time 35 SEC (24-38) Sodium Level 144 mmol/L (136-145) Potassium Level 3.8 mmol/L (3.5-5.1) Chloride Level 106 mmol/L (98-107) Carbon Dioxide Level 28 mmol/L (21-32) Anion Gap 10 (6-14) Blood Urea Nitrogen 13 mg/dL (7-20) Creatinine 0.9 mg/dL (0.6-1.0) Estimated GFR (Cockcroft-Gault) 59.4 BUN/Creatinine Ratio 14 (6-20) Glucose Level 104 mg/dL (70-99) H Calcium Level 9.3 mg/dL (8.5-10.1) Total Bilirubin 0.8 mg/dL (0.2-1.0) Aspartate Amino Transferase (AST) 42 U/L (15-37) H Alanine Aminotransferase (ALT) 45 U/L (14-59) Alkaline Phosphatase 32 U/L (46-116) L Troponin I Quantitative < 0.017 ng/mL (0.000-0.055) NG-Uxa-Z-Type Natriuretic Peptide 7862 pg/mL (0-449) H Total Protein 7.3 g/dL (6.4-8.2) Albumin 3.5 g/dL (3.4-5.0) Albumin/Globulin Ratio 0.9 (1.0-1.7) L Laboratory Tests 11/20/18 13:32 Laboratory Tests 11/20/18 13:32 EKG EKG EKG interpreted by Dr. Lind Afib with RVR rate of 126, NO STEMI.[] Radiology/Procedures Radiology/Procedures [][facility] [address] [place] [address] IMAGING REPORT Signed PATIENT: PRIYANKA ELISE ACCOUNT: [id number] : 1930 LOCATION: ER AGE: 87 SEX: F EXAM STATUS: REG ER ORD. PHYSICIAN: FLORINA GÓMEZ APRN REASON: cough, cp, soa PROCEDURE: PORTABLE CHEST 1V PORTABLE CHEST 1V Clinical indications: Cough and chest pain and shortness of air COMPARISON: 2016. Findings: new left lung base infiltrate and small left-sided pleural effusion is seen. Heart size is prominent but stable. Bipolar atrioventricular pacemaker is again evident. Mediastinum is stable. No pneumothorax is seen. IMPRESSION: New left lung base consolidative infiltrate with a small left-sided pleural effusion. Electronically signed by: Regan Victor MD (11/20/2018 2:37 PM) [facility] DICTATED and SIGNED BY: REGAN VICTOR MD DATE: 11/20/18 1439 Course & Med Decision Making Course & Med Decision Making Pertinent Labs and Imaging studies reviewed. (See chart for details) Appears to be in A-fib, will get labs, ekg, chest x-ray. Will start patient on Cardizem and place on drip. Will then admit to the hospital. Rate controlled with Cardizem after bolus. Nursing states rate went to 60-70's. Asked nursing to hold drip. Patient appears to be having a CHF exacerbation. The patient BNP is elevated, and x-ray shows left sided pleural effusion. Denies fever, no WBC. Will admit to hospital for CHF exacerbation and afib. Discussed with Dr. Sauer at 1519 who agrees to admission. Dragon Disclaimer Dragon Disclaimer This electronic medical record was generated, in whole or in part, using a voice recognition dictation system. Departure Departure Impression: Primary Impression: Atrial fibrillation with RVR Additional Impression: CHF (congestive heart failure) Disposition: 09 ADMITTED INPATIENT Admitting Physician: WILNER Condition: STABLE Referrals: MONI REED MD (PCP) Problem Qualifiers FLORINA GÓMEZ APRN Nov 20, 2018 13:40
[2018-11-20 13:43] LABS: BASO % 0 % (0-3); EOS # 0.1 x10^3/uL (0.0-0.7); EOS % 2 % (0-3); HEMATOCRIT 40.8 % (36.0-47.0); HEMOGLOBIN 13.7 g/dL (12.0-15.5); LYMPH # 1.6 x10^3/uL (1.0-4.8); LYMPH % 26 % (24-48); MEAN CORPUSCULAR HEMOGLOBIN 33 pg (25-35); MEAN CORPUSCULAR HGB CONC 34 g/dL (31-37); MEAN CORPUSCULAR VOLUME 98 fL (79-100); MONO # 0.5 x10^3/uL (0.0-1.1); MONO % 8 % (0-9); NEUT % 63 % (31-73); PLATELET COUNT 146 x10^3/uL (140-400); RED BLOOD COUNT 4.15 x10^6/uL (3.50-5.40); RED CELL DISTRIBUTION WIDTH 15.1 % (11.5-14.5); WHITE BLOOD COUNT 6.3 x10^3/uL (4.0-11.0)
[2018-11-20] MEDS ORDERED: dilTIAZem IV PUSH 25 MG/5 ML VIAL IVP ONE (13:45)
[2018-11-20] MEDS ORDERED: ONDANSETRON PF 4 MG/2 ML VIAL. IV ONE (13:45)
[2018-11-20] MEDS ORDERED: IV NORMAL SALINE 500ML BAG 500 ML IV ONE (13:45)
[2018-11-20] MEDS ORDERED: MORPHINE SULFATE 2 MG/ML VIAL. IV ONE (13:45)
[2018-11-20 13:52] LABS: PROTHROMBIN TIME PATIENT 18.4 SEC (11.7-14.0)
--- NOTE | 2018-11-20 13:55 | EKG ---
[facility] [address] [place] [address] Test Date: 2018-11-20 Test Time: 13:31:00 Pat Name: PRIYANKA ELISE Department: Room: Gender: F Acid Changer: : 1930 Requested By: FLORINA GÓMEZ Order Number: [id number] Reading MD: Jordy Coreas MD Measurements Intervals [place] Rate: 126 P: IN: QRS: 4 QRSD: 80 T: 9 QT: 332 QTc: 488 Interpretive Statements ATRIAL FIBRILLATION WITH RVR NON-SPECIFIC ST/T CHANGES Electronically Signed On 11-29-2018 16:43:05 CDT by Jordy Coreas MD
[2018-11-20] MEDS ORDERED: dilTIAZem INJ 125 MG in IV DEXTROSE 5% 100ML 100 ML IV ONE (14:00)
[2018-11-20 14:02] LABS: CALCIUM 9.3 mg/dL (8.5-10.1); CREATININE 0.9 mg/dL (0.6-1.0); GFR 59.4; POTASSIUM 3.8 mmol/L (3.5-5.1)
[2018-11-20 14:08] LABS: ALBUMIN 3.5 g/dL (3.4-5.0); ALBUMIN/GLOBULIN RATIO 0.9 (1.0-1.7); TOTAL BILIRUBIN 0.8 mg/dL (0.2-1.0); TOTAL PROTEIN 7.3 g/dL (6.4-8.2)
--- NOTE | 2018-11-20 14:40 | RAD ---
PORTABLE CHEST 1V Clinical indications: Cough and chest pain and shortness of air COMPARISON: 4 2017. Findings: new left lung base infiltrate and small left-sided pleural effusion is seen. Heart size is prominent but stable. Bipolar atrioventricular pacemaker is again evident. Mediastinum is stable. No pneumothorax is seen. IMPRESSION: New left lung base consolidative infiltrate with a small left-sided pleural effusion. Electronically signed by: Yehuda Victor MD (11/20/2018 2:37 PM) [place] [id number]
--- NOTE | 2018-11-20 15:27 | PDOC1 ---
History and Physical Date of Admission Date of Admission DATE: 11/20/18 TIME: 15:20 Identification/Chief Complaint Chief Complaint soa x 2 weeks, culminated last 2 days, with CP Source Source: Caregiver, Chart review, Patient History of Present Illness History of Present Illness very pleasant 87 yo female, lives in [place], full code as she verifies with me, SOA x 2 weeks with whitish phlegm, no fevers but claims head felt hot today, CXR shows left haziness -new from prev films and small left pl effusion, ALso chronic a fib know to [facility] cards group, maintained on eliquis and came in A fib RVR ad now 70s after cardizem push, NON toxic appearing , CP free, labs ok except for BNP 7800 with minor chest congestion?. Agreeable to be admitted, cards, CArdiac diet, rate control and CAP coverage. She has had PNA in past, non smoker, clean living Past Medical History Cardiovascular: AFIB, CHF, HTN, Hyperlipidemia, Other Pulmonary: No pertinent hx CENTRAL NERVOUS SYSTEM: Other GI: GERD, Peptic Ulcer disease Heme/Onc: No pertinent hx Hepatobiliary: No pertinent hx Psych: Anxiety, Depression Musculoskeletal: Osteoarthritis Rheumatologic: No pertinent hx Infectious disease: No pertinent hx Renal/: No pertinent hx Endocrine: Hypothyroidism Past Surgical History Past Surgical History: Pacemaker, Other Family History Family History: Cancer Social History Smoke: No ALCOHOL: none Drugs: None Current Problem List Problem List Problems Medical Problems: (1) Atrial fibrillation with RVR Status: Acute Current Medications Current Medications Current Medications Sodium Chloride 500 ml @ 500 mls/hr 1X ONCE IV Last administered on 11/20/18at 13:50; Start 11/20/18 at 13:45; Stop 11/20/18 at 14:44; Status DC Ondansetron HCl (Zofran) 4 mg 1X ONCE IV Last administered on 11/20/18at 13:50; Start 11/20/18 at 13:45; Stop 11/20/18 at 13:46; Status DC Morphine Sulfate (Morphine Sulfate) 2 mg 1X ONCE IV ; Start 11/20/18 at 13:45; Stop 11/20/18 at 13:46; Status DC Diltiazem HCl (Cardizem Iv Push) 10 mg 1X ONCE IVP Last administered on 11/20/18at 13:48; Start 11/20/18 at 13:45; Stop 11/20/18 at 13:46; Status DC Diltiazem HCl 125 mg/Dextrose 125 ml @ 5 mls/hr 1X ONCE IV ; Start 11/20/18 at 14:00; Stop 11/20/18 at 14:49; Status DC Acetaminophen (Tylenol) 500 mg PRN Q6HRS PRN PO MILD PAIN / TEMP; Start 11/20/18 at 15:30; Status UNV Acetaminophen/ Codeine Phosphate (Tylenol #3) 1 tab PRN Q6HRS PRN PO PAIN; Start 11/20/18 at 15:30; Status UNV Ondansetron HCl (Zofran) 4 mg PRN Q6HRS PRN IV NAUSEA/VOMITING; Start 11/20/18 at 15:30; Status UNV Apixaban (Eliquis) 5 mg BID PO ; Start 11/20/18 at 21:00; Status UNV Digoxin (Lanoxin) 125 mcg DAILY PO ; Start 11/21/18 at 09:00; Status UNV Docusate Sodium (Colace) 100 mg BID PRN PO CONSTIPATION; Start 11/20/18 at 15:30; Status UNV Famotidine (Pepcid) 20 mg HS PO ; Start 11/20/18 at 21:00; Status UNV Levothyroxine Sodium (Synthroid) 100 mcg DAILY PO ; Start 11/21/18 at 09:00; Status UNV Magnesium Oxide (Magnesium Oxide) 400 mg BID PO ; Start 11/20/18 at 21:00; Status UNV Metoprolol Tartrate (Lopressor) 50 mg BID PO ; Start 11/20/18 at 21:00; Status UNV Tramadol HCl (Ultram) 50 mg Q6HRS PO ; Start 11/20/18 at 18:00; Status UNV Non-Formulary Medication (Diphenhydramine Hcl (Unisom)) 50 mg HS PO ; Start 11/20/18 at 21:00; Status UNV Non-Formulary Medication (Hydrochlorothiazide (Hydrochlorothiazide Tablet)) 2 tab DAILY PO ; Start 11/21/18 at 09:00; Status UNV Non-Formulary Medication (Lisinopril ) 2.5 mg DAILY PO ; Start 11/21/18 at 09:00; Status UNV Non-Formulary Medication (Lovastatin ) 40 mg HS PO ; Start 11/20/18 at 21:00; Status UNV Non-Formulary Medication (Sertraline Hcl (Zoloft)) 100 mg DAILY PO ; Start 11/21/18 at 09:00; Status UNV Multivitamins (Thera M Plus) 1 tab DAILY PO ; Start 11/21/18 at 09:00; Status UNV Active Scripts Active Mag-Oxide (Magnesium Oxide) 400 Mg Tablet 1 Tab PO BID Reported Digoxin 125 Mcg Tablet 1 Tab PO DAILY Colace (Docusate Sodium) 100 Mg Capsule 1 Cap PO BID PRN Unisom (Diphenhydramine Hcl) 50 Mg Capsule 50 Mg PO HS Hydrochlorothiazide Tablet (Hydrochlorothiazide) 12.5 Mg Tablet 2 Tab PO DAILY Eliquis (Apixaban) 2.5 Mg Tablet 5 Mg PO BID Famotidine 20 Mg Tablet 20 Mg PO HS Metoprolol Tartrate 50 Mg Tablet 50 Mg PO BID Ultram (Tramadol Hcl) 50 Mg Tablet 1 Tab PO Q6HRS Levothyroxine Sodium 100 Mcg Tablet 1 Tab PO DAILY Lisinopril 2.5 Mg Tablet 2.5 Mg PO DAILY Multi Vitamin Daily (Multivitamin) 1 Each Tablet 1 Each PO Zoloft (Sertraline Hcl) 100 Mg Tablet 100 Mg PO DAILY Lovastatin 40 Mg Tablet 40 Mg PO HS Allergies Allergies: Coded Allergies: No Known Drug Allergies (Unverified , 12/31/13) ROS Review of System as per hpi, rest of 14 pt reviewed wit her is neg Physical Exam General: Alert, Oriented X3, Cooperative, No acute distress HEENT: Atraumatic, PERRLA Lungs: Normal air movement, Other (SCE< no wheezes, crackles fine bases) Heart: S1S2, no thrills, no rubs, no gallops, no murmurs, irregularly irregular, other (rate 70s) Breasts: Normal, Rt breast nml w/o mass, Lt breast nml w/o mass, Nipples normal Abdomen: Normal bowel sounds, Soft, No tenderness, No hepatosplenomegaly, No masses Rectal Exam: not examined PELVIC: Nml ext genitalia Extremities: No clubbing, No cyanosis, No edema, Normal pulses, No tenderness/swelling Skin: No rashes, No breakdown, No significant lesion Neuro: Normal gait, Normal speech, Strength at 5/5 X4 ext, Normal tone, Sensation intact, Cranial nerves 3-12 NL, Reflexes 2+ Psych/Mental Status: Mental status NL, Mood NL Vitals Vitals Vital Signs Date Time Temp Pulse Resp B/P (MAP) Pulse Ox O2 Delivery O2 Flow Rate FiO2 11/20/18 13:48 127 175/103 11/20/18 13:38 97.6 20 98 Nasal Cannula 2.0 97.6 Labs Labs Laboratory Tests Test 11/20/18 13:32 White Blood Count 6.3 x10^3/uL (4.0-11.0) Red Blood Count 4.15 x10^6/uL (3.50-5.40) Hemoglobin 13.7 g/dL (12.0-15.5) Hematocrit 40.8 % (36.0-47.0) Mean Corpuscular Volume 98 fL (79-100) Mean Corpuscular Hemoglobin 33 pg (25-35) Mean Corpuscular Hemoglobin Concent 34 g/dL (31-37) Red Cell Distribution Width 15.1 % (11.5-14.5) Platelet Count 146 x10^3/uL (140-400) Neutrophils (%) (Auto) 63 % (31-73) Lymphocytes (%) (Auto) 26 % (24-48) Monocytes (%) (Auto) 8 % (0-9) Eosinophils (%) (Auto) 2 % (0-3) Basophils (%) (Auto) 0 % (0-3) Neutrophils # (Auto) 4.0 x10^3/uL (1.8-7.7) Lymphocytes # (Auto) 1.6 x10^3/uL (1.0-4.8) Monocytes # (Auto) 0.5 x10^3/uL (0.0-1.1) Eosinophils # (Auto) 0.1 x10^3/uL (0.0-0.7) Basophils # (Auto) 0.0 x10^3/uL (0.0-0.2) Prothrombin Time 18.4 SEC (11.7-14.0) Prothromb Time International Ratio 1.6 (0.8-1.1) Activated Partial Thromboplast Time 35 SEC (24-38) Sodium Level 144 mmol/L (136-145) Potassium Level 3.8 mmol/L (3.5-5.1) Chloride Level 106 mmol/L (98-107) Carbon Dioxide Level 28 mmol/L (21-32) Anion Gap 10 (6-14) Blood Urea Nitrogen 13 mg/dL (7-20) Creatinine 0.9 mg/dL (0.6-1.0) Estimated GFR (Cockcroft-Gault) 59.4 BUN/Creatinine Ratio 14 (6-20) Glucose Level 104 mg/dL (70-99) Calcium Level 9.3 mg/dL (8.5-10.1) Total Bilirubin 0.8 mg/dL (0.2-1.0) Aspartate Amino Transf (AST/SGOT) 42 U/L (15-37) Alanine Aminotransferase (ALT/SGPT) 45 U/L (14-59) Alkaline Phosphatase 32 U/L (46-116) Troponin I Quantitative < 0.017 ng/mL (0.000-0.055) CU-Qqv-I-Type Natriuretic Peptide 7862 pg/mL (0-449) Total Protein 7.3 g/dL (6.4-8.2) Albumin 3.5 g/dL (3.4-5.0) Albumin/Globulin Ratio 0.9 (1.0-1.7) Laboratory Tests Test 11/20/18 13:32 White Blood Count 6.3 x10^3/uL (4.0-11.0) Red Blood Count 4.15 x10^6/uL (3.50-5.40) Hemoglobin 13.7 g/dL (12.0-15.5) Hematocrit 40.8 % (36.0-47.0) Mean Corpuscular Volume 98 fL (79-100) Mean Corpuscular Hemoglobin 33 pg (25-35) Mean Corpuscular Hemoglobin Concent 34 g/dL (31-37) Red Cell Distribution Width 15.1 % (11.5-14.5) Platelet Count 146 x10^3/uL (140-400) Neutrophils (%) (Auto) 63 % (31-73) Lymphocytes (%) (Auto) 26 % (24-48) Monocytes (%) (Auto) 8 % (0-9) Eosinophils (%) (Auto) 2 % (0-3) Basophils (%) (Auto) 0 % (0-3) Neutrophils # (Auto) 4.0 x10^3/uL (1.8-7.7) Lymphocytes # (Auto) 1.6 x10^3/uL (1.0-4.8) Monocytes # (Auto) 0.5 x10^3/uL (0.0-1.1) Eosinophils # (Auto) 0.1 x10^3/uL (0.0-0.7) Basophils # (Auto) 0.0 x10^3/uL (0.0-0.2) Prothrombin Time 18.4 SEC (11.7-14.0) Prothromb Time International Ratio 1.6 (0.8-1.1) Activated Partial Thromboplast Time 35 SEC (24-38) Sodium Level 144 mmol/L (136-145) Potassium Level 3.8 mmol/L (3.5-5.1) Chloride Level 106 mmol/L (98-107) Carbon Dioxide Level 28 mmol/L (21-32) Anion Gap 10 (6-14) Blood Urea Nitrogen 13 mg/dL (7-20) Creatinine 0.9 mg/dL (0.6-1.0) Estimated GFR (Cockcroft-Gault) 59.4 BUN/Creatinine Ratio 14 (6-20) Glucose Level 104 mg/dL (70-99) Calcium Level 9.3 mg/dL (8.5-10.1) Total Bilirubin 0.8 mg/dL (0.2-1.0) Aspartate Amino Transf (AST/SGOT) 42 U/L (15-37) Alanine Aminotransferase (ALT/SGPT) 45 U/L (14-59) Alkaline Phosphatase 32 U/L (46-116) Troponin I Quantitative < 0.017 ng/mL (0.000-0.055) TQ-Ndh-C-Type Natriuretic Peptide 7862 pg/mL (0-449) Total Protein 7.3 g/dL (6.4-8.2) Albumin 3.5 g/dL (3.4-5.0) Albumin/Globulin Ratio 0.9 (1.0-1.7) VTE Prophylaxis Ordered VTE Prophylaxis Devices: Yes VTE Pharmacological Prophylaxi: Yes Assessment/Plan Assessment/Plan acute on chronic A fib RVR on eliquis CAP, left with small left pl effusion [place] resident FULL CODE HTN, GERD, lipids, insomnia - chronic stable PLAn: CVC bed cards consult ,check mag calcium PT.OT Cardiac diet cardizem gtt standby Hetal gerber for CAP Cough med RTC Further recs pending course 2 [place] Full code BAck to [place] on dc ELIDA MAC MD Nov 20, 2018 15:27
[2018-11-20] MEDS ORDERED: ACETAMINOPHEN 500 MG TABLET PO PRN (15:30)
[2018-11-20] MEDS ORDERED: ONDANSETRON PF 4 MG/2 ML VIAL. IV PRN (15:30)
[2018-11-20] MEDS ORDERED: ALBUTEROL SULFATE 2.5 MG/3 ML NEBU. NEB PRN (15:30)
[2018-11-20] MEDS ORDERED: MORPHINE SULFATE 2 MG/ML VIAL. IV PRN (15:30)
[2018-11-20] MEDS ORDERED: ACETAMINOPHEN/CODEINE 300/30MG TABLET. PO PRN (15:30)
[2018-11-20] MEDS ORDERED: DOCUSATE SODIUM 100 MG CAPSULE. PO PRN (15:30)
[2018-11-20] MEDS ORDERED: AZITHROMYCIN 250 MG TABLET. PO ONE (15:30)
[2018-11-20 15:46] LABS: CALCIUM 9.2 mg/dL (8.5-10.1); MAGNESIUM 1.9 mg/dL (1.8-2.4)
[2018-11-20] MEDS: guaiFENesin DM 200MG/20MG 10 ML SYRUP PO SCH ×2 (17:00→21:00)
[2018-11-20] MEDS: cefTRIAXone IV Push 1 GM VIAL. IVP SCH (18:44)
--- NOTE | 2018-11-20 19:15 | NUR ---
Admit from ED via gurney. Patient transferred from [facility] to bed with 2 person assist. A/O x 4. O2 4L NC in place. Patient states she uses o2 2L NC at home but has been using it during the day also lately for increase SOA. Reports she lives at [facility] and uses a cane for ambulation. 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 She has been having increase fatigue and SOA for a couple weeks now. Orientated to room and call light. Reviewed POC. Verbalized understanding. Resting in bed with call light at hand.
[2018-11-20 19:30] VITALS: BP 147/90
[2018-11-20] MEDS: MAGNESIUM OXIDE 400 MG TABLET PO SCH (21:00)
[2018-11-20] MEDS: FAMOTIDINE 20 MG TABLET. PO SCH (21:01)
[2018-11-20] MEDS: APIXABAN 5 MG TABLET. PO SCH (21:02)
[2018-11-20] MEDS: ATORVASTATIN CALCIUM 10 MG TABLET. PO SCH (21:02)
[2018-11-20] MEDS: METOPROLOL TART IMMED RELEASE 50 MG TABLET. PO SCH (21:02)
[2018-11-20] MEDS: traMADol 50 MG TABLET PO SCH ×2 (21:03→23:44)
[2018-11-20] MEDS: diphenhydrAMINE HCL 25 MG CAPSULE PO SCH (21:03)
[2018-11-20 23:28] VITALS: BP 123/61
[2018-11-21 03:00] VITALS: BP 136/66
[2018-11-21] MEDS: traMADol 50 MG TABLET PO SCH ×4 (06:20→23:39)
[2018-11-21] MEDS: LEVOTHYROXINE 100 MCG TABLET PO SCH (06:20)
[2018-11-21 07:16] VITALS: BP 139/58
[2018-11-21] MEDS: guaiFENesin DM 200MG/20MG 10 ML SYRUP PO SCH ×4 (08:37→21:00)
[2018-11-21] MEDS: SERTRALINE 50 MG TABLET. PO SCH (08:38)
[2018-11-21] MEDS: hydroCHLOROthiazide 25 MG TABLET PO SCH (08:38)
[2018-11-21] MEDS: DIGOXIN 125 MCG TABLET. PO SCH (08:38)
[2018-11-21] MEDS: AZITHROMYCIN 250 MG TABLET. PO SCH (08:38)
[2018-11-21] MEDS: MULTIVITAMIN with MINERAL TABLET. PO SCH (08:39)
[2018-11-21] MEDS: METOPROLOL TART IMMED RELEASE 50 MG TABLET. PO SCH (08:39)
[2018-11-21] MEDS: LISINOPRIL 5 MG TABLET. PO SCH (08:39)
[2018-11-21] MEDS: MAGNESIUM OXIDE 400 MG TABLET PO SCH ×2 (08:39→21:15)
[2018-11-21] MEDS: APIXABAN 5 MG TABLET. PO SCH ×2 (08:39→21:15)
--- NOTE | 2018-11-21 09:10 | NUR ---
SW following pt. Chart reviewed. Pt is a resident at [facility], has home 02 and home health through [facility] , phone: [phone]. Will continue to follow.
--- NOTE | 2018-11-21 10:23 | PDOC ---
PROGRESS NOTES Chief Complaint Chief Complaint acute on chronic A fib RVR on eliquis CAP, left with small left pl effusion [place] resident FULL CODE HTN, GERD, lipids, insomnia - chronic stable History of Present Illness History of Present Illness Off cardizem gtt and HR 90s- 130s at rest NO other events overnight NO CP, no SOA Wishes to go back to [place] soon I am also treating for CAP/bronchitis with azithro PO and rocephin IV PLAn: Await cards Will need more rate control PT.OT for snu screen SW pending PT eval COnt CAP abx keep tele Vitals Vitals Vital Signs Date Time Temp Pulse Resp B/P (MAP) Pulse Ox O2 Delivery O2 Flow Rate FiO2 11/21/18 08:43 109 139/58 11/21/18 08:00 Nasal Cannula 5.0 11/21/18 07:53 100 11/21/18 07:16 98.1 18 98.1 Physical Exam General: Alert, Oriented X3, Cooperative, No acute distress Lungs: Clear Abdomen: Normal bowel sounds, Soft, No tenderness, No hepatosplenomegaly, No masses Extremities: No clubbing, No cyanosis, No edema, Normal pulses, No tenderness/swelling Skin: No rashes, No breakdown, No significant lesion Labs LABS Laboratory Tests Test 11/20/18 13:32 White Blood Count 6.3 x10^3/uL (4.0-11.0) Red Blood Count 4.15 x10^6/uL (3.50-5.40) Hemoglobin 13.7 g/dL (12.0-15.5) Hematocrit 40.8 % (36.0-47.0) Mean Corpuscular Volume 98 fL (79-100) Mean Corpuscular Hemoglobin 33 pg (25-35) Mean Corpuscular Hemoglobin Concent 34 g/dL (31-37) Red Cell Distribution Width 15.1 % (11.5-14.5) Platelet Count 146 x10^3/uL (140-400) Neutrophils (%) (Auto) 63 % (31-73) Lymphocytes (%) (Auto) 26 % (24-48) Monocytes (%) (Auto) 8 % (0-9) Eosinophils (%) (Auto) 2 % (0-3) Basophils (%) (Auto) 0 % (0-3) Neutrophils # (Auto) 4.0 x10^3/uL (1.8-7.7) Lymphocytes # (Auto) 1.6 x10^3/uL (1.0-4.8) Monocytes # (Auto) 0.5 x10^3/uL (0.0-1.1) Eosinophils # (Auto) 0.1 x10^3/uL (0.0-0.7) Basophils # (Auto) 0.0 x10^3/uL (0.0-0.2) Prothrombin Time 18.4 SEC (11.7-14.0) Prothromb Time International Ratio 1.6 (0.8-1.1) Activated Partial Thromboplast Time 35 SEC (24-38) Sodium Level 144 mmol/L (136-145) Potassium Level 3.8 mmol/L (3.5-5.1) Chloride Level 106 mmol/L (98-107) Carbon Dioxide Level 28 mmol/L (21-32) Anion Gap 10 (6-14) Blood Urea Nitrogen 13 mg/dL (7-20) Creatinine 0.9 mg/dL (0.6-1.0) Estimated GFR (Cockcroft-Gault) 59.4 BUN/Creatinine Ratio 14 (6-20) Glucose Level 104 mg/dL (70-99) Calcium Level 9.2 mg/dL (8.5-10.1) Magnesium Level 1.9 mg/dL (1.8-2.4) Total Bilirubin 0.8 mg/dL (0.2-1.0) Aspartate Amino Transf (AST/SGOT) 42 U/L (15-37) Alanine Aminotransferase (ALT/SGPT) 45 U/L (14-59) Alkaline Phosphatase 32 U/L (46-116) Troponin I Quantitative < 0.017 ng/mL (0.000-0.055) PP-Rbq-Z-Type Natriuretic Peptide 7862 pg/mL (0-449) Total Protein 7.3 g/dL (6.4-8.2) Albumin 3.5 g/dL (3.4-5.0) Albumin/Globulin Ratio 0.9 (1.0-1.7) Thyroid Stimulating Hormone (TSH) 0.169 uIU/mL (0.358-3.74) Review of Systems Review of Systems no soa, no cp, no palp, no abd pain, no fever, no inc incough or phlegm, no diarrhea Assessment and Plan Assessmemt and Plan Problems Medical Problems: (1) Atrial fibrillation with RVR Status: Acute (2) CAP (community acquired pneumonia) Status: Acute (3) GERD (gastroesophageal reflux disease) Status: Chronic (4) HLD (hyperlipidemia) Status: Chronic (5) HTN (hypertension) Status: Chronic (6) Insomnia Status: Chronic Comment Review of Relevant I have reviewed the following items ori (where applicable) has been applied. Labs Laboratory Tests Test 11/20/18 13:32 White Blood Count 6.3 x10^3/uL (4.0-11.0) Red Blood Count 4.15 x10^6/uL (3.50-5.40) Hemoglobin 13.7 g/dL (12.0-15.5) Hematocrit 40.8 % (36.0-47.0) Mean Corpuscular Volume 98 fL (79-100) Mean Corpuscular Hemoglobin 33 pg (25-35) Mean Corpuscular Hemoglobin Concent 34 g/dL (31-37) Red Cell Distribution Width 15.1 % (11.5-14.5) Platelet Count 146 x10^3/uL (140-400) Neutrophils (%) (Auto) 63 % (31-73) Lymphocytes (%) (Auto) 26 % (24-48) Monocytes (%) (Auto) 8 % (0-9) Eosinophils (%) (Auto) 2 % (0-3) Basophils (%) (Auto) 0 % (0-3) Neutrophils # (Auto) 4.0 x10^3/uL (1.8-7.7) Lymphocytes # (Auto) 1.6 x10^3/uL (1.0-4.8) Monocytes # (Auto) 0.5 x10^3/uL (0.0-1.1) Eosinophils # (Auto) 0.1 x10^3/uL (0.0-0.7) Basophils # (Auto) 0.0 x10^3/uL (0.0-0.2) Prothrombin Time 18.4 SEC (11.7-14.0) Prothromb Time International Ratio 1.6 (0.8-1.1) Activated Partial Thromboplast Time 35 SEC (24-38) Sodium Level 144 mmol/L (136-145) Potassium Level 3.8 mmol/L (3.5-5.1) Chloride Level 106 mmol/L (98-107) Carbon Dioxide Level 28 mmol/L (21-32) Anion Gap 10 (6-14) Blood Urea Nitrogen 13 mg/dL (7-20) Creatinine 0.9 mg/dL (0.6-1.0) Estimated GFR (Cockcroft-Gault) 59.4 BUN/Creatinine Ratio 14 (6-20) Glucose Level 104 mg/dL (70-99) Calcium Level 9.2 mg/dL (8.5-10.1) Magnesium Level 1.9 mg/dL (1.8-2.4) Total Bilirubin 0.8 mg/dL (0.2-1.0) Aspartate Amino Transf (AST/SGOT) 42 U/L (15-37) Alanine Aminotransferase (ALT/SGPT) 45 U/L (14-59) Alkaline Phosphatase 32 U/L (46-116) Troponin I Quantitative < 0.017 ng/mL (0.000-0.055) NK-Nuo-F-Type Natriuretic Peptide 7862 pg/mL (0-449) Total Protein 7.3 g/dL (6.4-8.2) Albumin 3.5 g/dL (3.4-5.0) Albumin/Globulin Ratio 0.9 (1.0-1.7) Thyroid Stimulating Hormone (TSH) 0.169 uIU/mL (0.358-3.74) Laboratory Tests Test 11/20/18 13:32 White Blood Count 6.3 x10^3/uL (4.0-11.0) Red Blood Count 4.15 x10^6/uL (3.50-5.40) Hemoglobin 13.7 g/dL (12.0-15.5) Hematocrit 40.8 % (36.0-47.0) Mean Corpuscular Volume 98 fL (79-100) Mean Corpuscular Hemoglobin 33 pg (25-35) Mean Corpuscular Hemoglobin Concent 34 g/dL (31-37) Red Cell Distribution Width 15.1 % (11.5-14.5) Platelet Count 146 x10^3/uL (140-400) Neutrophils (%) (Auto) 63 % (31-73) Lymphocytes (%) (Auto) 26 % (24-48) Monocytes (%) (Auto) 8 % (0-9) Eosinophils (%) (Auto) 2 % (0-3) Basophils (%) (Auto) 0 % (0-3) Neutrophils # (Auto) 4.0 x10^3/uL (1.8-7.7) Lymphocytes # (Auto) 1.6 x10^3/uL (1.0-4.8) Monocytes # (Auto) 0.5 x10^3/uL (0.0-1.1) Eosinophils # (Auto) 0.1 x10^3/uL (0.0-0.7) Basophils # (Auto) 0.0 x10^3/uL (0.0-0.2) Prothrombin Time 18.4 SEC (11.7-14.0) Prothromb Time International Ratio 1.6 (0.8-1.1) Activated Partial Thromboplast Time 35 SEC (24-38) Sodium Level 144 mmol/L (136-145) Potassium Level 3.8 mmol/L (3.5-5.1) Chloride Level 106 mmol/L (98-107) Carbon Dioxide Level 28 mmol/L (21-32) Anion Gap 10 (6-14) Blood Urea Nitrogen 13 mg/dL (7-20) Creatinine 0.9 mg/dL (0.6-1.0) Estimated GFR (Cockcroft-Gault) 59.4 BUN/Creatinine Ratio 14 (6-20) Glucose Level 104 mg/dL (70-99) Calcium Level 9.2 mg/dL (8.5-10.1) Magnesium Level 1.9 mg/dL (1.8-2.4) Total Bilirubin 0.8 mg/dL (0.2-1.0) Aspartate Amino Transf (AST/SGOT) 42 U/L (15-37) Alanine Aminotransferase (ALT/SGPT) 45 U/L (14-59) Alkaline Phosphatase 32 U/L (46-116) Troponin I Quantitative < 0.017 ng/mL (0.000-0.055) WG-Ghr-X-Type Natriuretic Peptide 7862 pg/mL (0-449) Total Protein 7.3 g/dL (6.4-8.2) Albumin 3.5 g/dL (3.4-5.0) Albumin/Globulin Ratio 0.9 (1.0-1.7) Thyroid Stimulating Hormone (TSH) 0.169 uIU/mL (0.358-3.74) Medications Current Medications Sodium Chloride 500 ml @ 500 mls/hr 1X ONCE IV Last administered on 11/20/18 13:50; Start 11/20/18 at 13:45; Stop 11/20/18 at 14:44; Status DC Ondansetron HCl (Zofran) 4 mg 1X ONCE IV Last administered on 11/20/18at 13:50; Start 11/20/18 at 13:45; Stop 11/20/18 at 13:46; Status DC Morphine Sulfate (Morphine Sulfate) 2 mg 1X ONCE IV ; Start 11/20/18 at 13:45; Stop 11/20/18 at 13:46; Status DC Diltiazem HCl (Cardizem Iv Push) 10 mg 1X ONCE IVP Last administered on 11/20/18at 13:48; Start 11/20/18 at 13:45; Stop 11/20/18 at 13:46; Status DC Diltiazem HCl 125 mg/Dextrose 125 ml @ 5 mls/hr 1X ONCE IV ; Start 11/20/18 at 14:00; Stop 11/20/18 at 14:49; Status DC Acetaminophen (Tylenol) 500 mg PRN Q6HRS PRN PO MILD PAIN / TEMP Last administered on 11/20/18at 18:44; Start 11/20/18 at 15:30 Acetaminophen/ Codeine Phosphate (Tylenol #3) 1 tab PRN Q6HRS PRN PO MODERATE PAIN; Start 11/20/18 at 15:30 Ondansetron HCl (Zofran) 4 mg PRN Q6HRS PRN IV NAUSEA/VOMITING; Start 11/20/18 at 15:30 Apixaban (Eliquis) 5 mg BID PO Last administered on 11/21/18at 08:43; Start 11/20/18 at 21:00 Digoxin (Lanoxin) 125 mcg DAILY PO Last administered on 11/21/18 08:43; Start 11/21/18 at 09:00 Docusate Sodium (Colace) 100 mg BID PRN PO CONSTIPATION Last administered on 11/21/18at 08:43; Start 11/20/18 at 15:30 Famotidine (Pepcid) 20 mg HS PO Last administered on 11/20/18 21:04; Start 11/20/18 at 21:00 Levothyroxine Sodium (Synthroid) 100 mcg DAILY06 PO Last administered on 11/21/18 06:20; Start 11/21/18 at 06:00 Magnesium Oxide (Magnesium Oxide) 400 mg BID PO Last administered on 11/21/18 08:43; Start 11/20/18 at 21:00 Metoprolol Tartrate (Lopressor) 50 mg BID PO Last administered on 11/21/18 08:43; Start 11/20/18 at 21:00 Tramadol HCl (Ultram) 50 mg Q6HRS PO Last administered on 11/21/18 06:20; Start 11/20/18 at 18:00 Diphenhydramine HCl (Benadryl) 50 mg QHS PO Last administered on 11/20/18 21:04; Start 11/20/18 at 21:00 Hydrochlorothiazide (Hydrodiuril) 25 mg DAILY PO Last administered on 11/21/18 08:43; Start 11/21/18 at 09:00 Lisinopril (Prinivil) 2.5 mg DAILY PO Last administered on 11/21/18 08:43; Start 11/21/18 at 09:00 Atorvastatin Calcium (Lipitor) 10 mg QHS PO Last administered on 11/20/18 21:04; Start 11/20/18 at 21:00 Sertraline HCl (Zoloft) 100 mg DAILY PO Last administered on 11/21/18 08:43; Start 11/21/18 at 09:00 Multivitamins (Thera M Plus) 1 tab DAILY PO Last administered on 11/21/18 08:43; Start 11/21/18 at 09:00 Ceftriaxone Sodium (Rocephin) 1 gm Q24H IVP Last administered on 11/20/18 18:44; Start 11/20/18 at 16:00 Azithromycin (Zithromax) 250 mg DAILY PO Last administered on 11/21/18 08:43; Start 11/21/18 at 09:00 Azithromycin (Zithromax) 500 mg 1X ONCE PO Last administered on 8/13/19at 18:44; Start 11/20/18 at 15:30; Stop 11/20/18 at 15:31; Status DC Albuterol Sulfate (Ventolin Neb Soln) 2.5 mg PRN Q4HRS PRN NEB SHORTNESS OF BREATH; Start 11/20/18 at 15:30 Guaifenesin (Robitussin Dm) 10 ml QID PO Last administered on 11/21/18at 08:43; Start 11/20/18 at 17:00 Morphine Sulfate (Morphine Sulfate) 1 mg PRN Q2HR PRN IV PAIN; Start 11/20/18 at 15:30 Active Scripts Active Mag-Oxide (Magnesium Oxide) 400 Mg Tablet 1 Tab PO BID Reported Digoxin 125 Mcg Tablet 1 Tab PO DAILY Colace (Docusate Sodium) 100 Mg Capsule 1 Cap PO BID PRN Unisom (Diphenhydramine Hcl) 50 Mg Capsule 50 Mg PO HS Hydrochlorothiazide Tablet (Hydrochlorothiazide) 12.5 Mg Tablet 2 Tab PO DAILY Eliquis (Apixaban) 2.5 Mg Tablet 5 Mg PO BID Famotidine 20 Mg Tablet 20 Mg PO HS Metoprolol Tartrate 50 Mg Tablet 50 Mg PO BID Ultram (Tramadol Hcl) 50 Mg Tablet 1 Tab PO Q6HRS Levothyroxine Sodium 100 Mcg Tablet 1 Tab PO DAILY Lisinopril 2.5 Mg Tablet 2.5 Mg PO DAILY Multi Vitamin Daily (Multivitamin) 1 Each Tablet 1 Each PO Zoloft (Sertraline Hcl) 100 Mg Tablet 100 Mg PO DAILY Lovastatin 40 Mg Tablet 40 Mg PO HS Vitals/I & O Vital Sign - Last 24 Hours 11/20/18 11/20/18 11/20/18 11/20/18 13:38 13:48 13:51 13:54 Temp 97.6 97.6 Pulse 125 127 116 78 Resp 20 20 22 B/P (MAP) 175/103 (127) 175/103 154/91 (112) 139/62 (87) Pulse Ox 98 95 92 O2 Delivery Nasal Cannula Nasal Cannula Nasal Cannula O2 Flow Rate 2.0 2.0 2.0 11/20/18 11/20/18 11/20/18 11/20/18 14:21 14:51 15:21 15:51 Pulse 78 78 80 119 Resp 21 18 18 20 B/P (MAP) 152/73 (99) 149/77 (101) 156/71 (99) 138/81 (100) Pulse Ox 93 92 93 93 O2 Delivery Nasal Cannula Nasal Cannula Nasal Cannula Nasal Cannula O2 Flow Rate 2.0 2.0 2.0 2.0 11/20/18 11/20/18 11/20/18 11/20/18 16:21 17:21 18:21 19:05 Pulse 100 98 140 126 Resp 20 23 23 21 B/P (MAP) 162/81 (108) 170/100 (123) 170/96 (120) 167/91 (116) Pulse Ox 96 94 90 94 O2 Delivery Nasal Cannula Nasal Cannula Nasal Cannula Nasal Cannula O2 Flow Rate 2.0 2.0 2.0 2.0 11/20/18 11/20/18 11/20/18 11/20/18 19:30 20:00 21:04 21:04 Temp 98.4 98.4 Pulse 116 116 Resp 20 18 B/P (MAP) 147/90 (109) 147/90 Pulse Ox 98 98 O2 Delivery Nasal Cannula Nasal Cannula O2 Flow Rate 5.0 4.0 4.0 11/20/18 11/20/18 11/21/18 11/21/18 23:28 23:44 03:00 06:20 Temp 97.9 97.7 97.9 97.7 Pulse 116 104 Resp 18 22 17 20 B/P (MAP) 123/61 (81) 136/66 (89) Pulse Ox 95 95 99 99 O2 Delivery Nasal Cannula Nasal Cannula Nasal Cannula Nasal Cannula O2 Flow Rate 5.0 5.0 5.0 4.0 11/21/18 11/21/18 11/21/18 11/21/18 07:16 07:53 08:00 08:43 Temp 98.1 98.1 Pulse 109 109 Resp 18 B/P (MAP) 139/58 (85) 139/58 Pulse Ox 100 100 O2 Delivery Nasal Cannula Nasal Cannula Nasal Cannula O2 Flow Rate 5.0 5.0 5.0 11/21/18 11/21/18 08:43 08:43 Pulse 109 109 B/P (MAP) 139/58 139/58 Intake and Output 11/20/18 11/20/18 11/21/18 14:59 22:59 06:59 Intake Total 500 ml 200 ml 400 ml Output Total 200 ml Balance 500 ml 0 ml 400 ml ELIDA MAC MD Nov 21, 2018 10:23
[2018-11-21 10:39] VITALS: BP 111/56
--- NOTE | 2018-11-21 10:39 | PDOC2 ---
CARDIAC CONSULT DATE OF CONSULT Date of Consult DATE: 11/21/18 TIME: 10:32 REASON FOR CONSULT Reason for Consult: AFIB with RVR REFERRING PHYSICIAN Referring Physician: Dr. Sauer SOURCE Source: Chart review, Patient HISTORY OF PRESENT ILLNESS HISTORY OF PRESENT ILLNESS This is an 87 yo female who presented secondary to shortness of breath for the last couple of weeks. Noted in AFIB with RVR upon arrival, which prompted this consult. Patient reports she has not been feeling well for the last couple of weeks. Has had could/cold/congestion. Has been short of breath, weak, achy, fatigued. Yesterday, was much worse. Home care worker encouraged her to go to the ED for further evaluation and treatment. Has a history of AFIB and SSS s/p PPM placement. On digoxin and metoprolol at home. Reports compliance with medica tions. Was given dose of IV Cardizem bolus in ED and rate has been better controlled since. PAST MEDICAL HISTORY Past Medical History Cardiovascular: AFIB, CHF, HTN, Hyperlipidemia, Other (SSS s/p pacemaker, PVD s/p subclavian stent) Pulmonary: No pertinent hx CENTRAL NERVOUS SYSTEM: Other (no pertinent hx ) GI: GERD, Peptic Ulcer disease Heme/Onc: No pertinent hx Hepatobiliary: No pertinent hx Psych: Anxiety, Depression Musculoskeletal: Osteoarthritis Rheumatologic: No pertinent hx Infectious disease: No pertinent hx ENT: No pertinent hx Renal/: No pertinent hx Endocrine: Hypothyroidism Dermatology: No pertinent hx PAST SURGICAL HISTORY Past Surgical History Pacemaker (Medtronic ), Other (right knee sx, left breast lumpectomy ) FAMILY HISTORY Family History: Cancer SOCIAL HISTORY Social History Smoke: No ALCOHOL: none Drugs: None Lives: Assisted living CURRENT MEDICATIONS CURRENT MEDICATIONS Current Medications Medications (Trade) Dose Ordered Sig/Jess Route PRN Reason Start Time Stop Time Status Last Admin Dose Admin Sodium Chloride 500 ml @ 500 mls/hr 1X ONCE IV 11/20/18 13:45 11/20/18 14:44 DC 11/20/18 13:50 Ondansetron HCl (Zofran) 4 mg 1X ONCE IV 11/20/18 13:45 11/20/18 13:46 DC 11/20/18 13:50 Diltiazem HCl (Cardizem Iv Push) 10 mg 1X ONCE IVP 11/20/18 13:45 11/20/18 13:46 DC 11/20/18 13:48 Acetaminophen (Tylenol) 500 mg PRN Q6HRS PRN PO MILD PAIN / TEMP 11/20/18 15:30 11/20/18 18:44 Apixaban (Eliquis) 5 mg BID PO 11/20/18 21:00 11/21/18 08:43 Digoxin (Lanoxin) 125 mcg DAILY PO 11/21/18 09:00 11/21/18 08:43 Docusate Sodium (Colace) 100 mg BID PRN PO CONSTIPATION 11/20/18 15:30 11/21/18 08:43 Famotidine (Pepcid) 20 mg HS PO 11/20/18 21:00 11/20/18 21:04 Levothyroxine Sodium (Synthroid) 100 mcg DAILY06 PO 11/21/18 06:00 11/21/18 06:20 Magnesium Oxide (Magnesium Oxide) 400 mg BID PO 11/20/18 21:00 11/21/18 08:43 Metoprolol Tartrate (Lopressor) 50 mg BID PO 11/20/18 21:00 11/21/18 08:43 Tramadol HCl (Ultram) 50 mg Q6HRS PO 11/20/18 18:00 11/21/18 06:20 Diphenhydramine HCl (Benadryl) 50 mg QHS PO 11/20/18 21:00 11/20/18 21:04 Hydrochlorothiazide (Hydrodiuril) 25 mg DAILY PO 11/21/18 09:00 11/21/18 08:43 Lisinopril (Prinivil) 2.5 mg DAILY PO 11/21/18 09:00 11/21/18 08:43 Atorvastatin Calcium (Lipitor) 10 mg QHS PO 11/20/18 21:00 11/20/18 21:04 Sertraline HCl (Zoloft) 100 mg DAILY PO 11/21/18 09:00 11/21/18 08:43 Multivitamins (Thera M Plus) 1 tab DAILY PO 11/21/18 09:00 11/21/18 08:43 Ceftriaxone Sodium (Rocephin) 1 gm Q24H IVP 11/20/18 16:00 11/20/18 18:44 Azithromycin (Zithromax) 250 mg DAILY PO 11/21/18 09:00 11/21/18 08:43 Azithromycin (Zithromax) 500 mg 1X ONCE PO 11/20/18 15:30 11/20/18 15:31 DC 11/20/18 18:44 Guaifenesin (Robitussin Dm) 10 ml QID PO 11/20/18 17:00 11/21/18 08:43 ALLERGIES ALLERGIES: Coded Allergies: No Known Drug Allergies (Unverified , 12/31/13) ROS Review of System 14 point ROS conducted with pertinent positives noted above in HPI. PHYSICAL EXAM PHYSICAL EXAM General: Alert, Oriented X3, Cooperative, No acute distress HEENT: Atraumatic, Mucous membr. moist/pink Lungs: Clear to auscultation, Normal air movement Heart: Normal S1, Normal S2, Other (IRRR; tele AFIB with controlled ventricular rate) Abdomen: Soft Extremities: No cyanosis, No edema, Normal pulses Skin: No significant lesion Neuro: Normal speech, Sensation intact Psych/Mental Status: Mental status NL, Mood NL MUSCULOSKELETAL: Osteoarthritic changes both hands VITALS/I&O VITALS/I&O: Vital Signs Date Time Temp Pulse Resp B/P (MAP) Pulse Ox O2 Delivery O2 Flow Rate FiO2 11/21/18 08:43 109 139/58 11/21/18 08:00 Nasal Cannula 5.0 11/21/18 07:53 100 11/21/18 07:16 98.1 18 98.1 I & O 11/20/18 11/20/18 11/21/18 15:00 23:00 07:00 Intake Total 500 ml 200 ml 400 ml Output Total 200 ml Balance 500 ml 0 ml 400 ml LABS Lab: Laboratory Tests Test 11/20/18 13:32 White Blood Count 6.3 x10^3/uL (4.0-11.0) Red Blood Count 4.15 x10^6/uL (3.50-5.40) Hemoglobin 13.7 g/dL (12.0-15.5) Hematocrit 40.8 % (36.0-47.0) Mean Corpuscular Volume 98 fL (79-100) Mean Corpuscular Hemoglobin 33 pg (25-35) Mean Corpuscular Hemoglobin Concent 34 g/dL (31-37) Red Cell Distribution Width 15.1 % (11.5-14.5) H Platelet Count 146 x10^3/uL (140-400) Neutrophils (%) (Auto) 63 % (31-73) Lymphocytes (%) (Auto) 26 % (24-48) Monocytes (%) (Auto) 8 % (0-9) Eosinophils (%) (Auto) 2 % (0-3) Basophils (%) (Auto) 0 % (0-3) Neutrophils # (Auto) 4.0 x10^3/uL (1.8-7.7) Lymphocytes # (Auto) 1.6 x10^3/uL (1.0-4.8) Monocytes # (Auto) 0.5 x10^3/uL (0.0-1.1) Eosinophils # (Auto) 0.1 x10^3/uL (0.0-0.7) Basophils # (Auto) 0.0 x10^3/uL (0.0-0.2) Prothrombin Time 18.4 SEC (11.7-14.0) H Prothrombin Time INR 1.6 (0.8-1.1) H Activated Partial Thromboplast Time 35 SEC (24-38) Sodium Level 144 mmol/L (136-145) Potassium Level 3.8 mmol/L (3.5-5.1) Chloride Level 106 mmol/L (98-107) Carbon Dioxide Level 28 mmol/L (21-32) Anion Gap 10 (6-14) Blood Urea Nitrogen 13 mg/dL (7-20) Creatinine 0.9 mg/dL (0.6-1.0) Estimated GFR (Cockcroft-Gault) 59.4 BUN/Creatinine Ratio 14 (6-20) Glucose Level 104 mg/dL (70-99) H Calcium Level 9.2 mg/dL (8.5-10.1) Magnesium Level 1.9 mg/dL (1.8-2.4) Total Bilirubin 0.8 mg/dL (0.2-1.0) Aspartate Amino Transferase (AST) 42 U/L (15-37) H Alanine Aminotransferase (ALT) 45 U/L (14-59) Alkaline Phosphatase 32 U/L (46-116) L Troponin I Quantitative < 0.017 ng/mL (0.000-0.055) GA-Vrg-W-Type Natriuretic Peptide 7862 pg/mL (0-449) H Total Protein 7.3 g/dL (6.4-8.2) Albumin 3.5 g/dL (3.4-5.0) Albumin/Globulin Ratio 0.9 (1.0-1.7) L Thyroid Stimulating Hormone (TSH) 0.169 uIU/mL (0.358-3.74) L Laboratory Tests 11/20/18 13:32 Laboratory Tests 11/20/18 13:32 ECHOCARDIOGRAM ECHOCARDIOGRAM <Conclusion> Left ventricle systolic function is normal. The Ejection Fraction is 50-55%. Septal motion suggestive of post-operative state/conduction abnormality. Tissue Doppler imaging reveals moderate left ventricular diastolic dysfunction. Doppler and Color Flow revealed mild mitral regurgitation. Doppler and Color Flow revealed moderate tricuspid regurgitation. The PA pressure was estimated at 45 mmHg. DATE: 03/10/16 0905 STRESS TEST STRESS TEST Conclusion 1. No EKG evidence of stress-induced ischemia. 2. Nuclear imaging shows no reversible ischemia or infarct. 3. Mildly decreased ejection fraction at 47% in the setting of atrial fibrillation. 4. Low to moderately low risk Lexiscan nuclear stress test. DATE: 11/12/16 1351 ASSESSMENT/PLAN ASSESSMENT/PLAN 1. Acute respiratory failure with possible PNA 2. Paroxysmal AFIB; RVR upon arrival. on Elquis for stroke prevention. 3. SSS s/p Medtronic pacemaker implantation 4. Hypertension; controlled 5. Hyperlipidemia; statin therapy 6. Chronic diastolic heart failure; Echo 2016 with preserved LV systolic function as noted above. clinically compensated Recommendations Echo to assess LV systolic function Device interrogation Check Dig level Continue digoxin, metoprolol for rate control; consider increasing metoprolol if rate consistently elevated. Eliquis for stroke prophylaxis. Supportive care DORCAS MASTERS APRN Nov 21, 2018 10:39
[2018-11-21 13:08] LABS: DIG 0.5 ng/mL (0.9-2.0)
[2018-11-21 14:03] VITALS: BP 121/58
--- NOTE | 2018-11-21 14:19 | CARD ---
MR#: [id number] Date of Study: 11/21/2018 Ordering Physician: DORCAS MASTERS, Referring Physician: DORCAS MASTERS, Tech: Iris Leger ABIOLA APPROVED REPORT EXAM: Two-dimensional and M-mode echocardiogram with Doppler and color Doppler. Other Information Quality : Good INDICATION Dyspnea 2D DIMENSIONS RVDd2.3 (2.9-3.5cm)Left Atrium(2D)4.6 (1.6-4.0cm) IVSd0.7 (0.7-1.1cm)Aortic Root(2D)2.8 (2.0-3.7cm) LVDd4.1 (3.9-5.9cm)LVOT Diameter2.1 (1.8-2.4cm) PWd0.9 (0.7-1.1cm)LVDs3.5 (2.5-4.0cm) FS (%) 12.8 %SV20.4 ml LVEF(%)27.9 (>50%) Aortic Valve AoV Peak Nash.71.6cm/sAoV VTI9.6cm AO Peak GR.2.1mmHgLVOT Peak Nash.56.0cm/s AO Mean GR.1mmHgAVA (VMAX)2.58cm2 Tricuspid Valve TR P. [id number] [id number] TR Peak Gr.[id number] LEFT VENTRICLE The left ventricle is normal size. There is normal left ventricular wall thickness. Left ventricle sy stolic function is moderately to severely impaired. The Ejection Fraction is 25-30%. There is global hypokinesis of the left ventricle. RIGHT VENTRICLE The right ventricle is normal size. The right ventricular systolic function is normal. ATRIA The left atrium is mildly dilated. The right atrium is mildly dilated. The interatrial septum is inta ct with no evidence for an atrial septal defect or patent foramen ovale as noted on 2-D or Doppler im aging. AORTIC VALVE The aortic valve is moderately thickened but opens well. Doppler and Color Flow revealed trace aortic regurgitation. There is no significant aortic valvular stenosis. MITRAL VALVE The mitral valve is calcified but opens well. There is no evidence of mitral valve prolapse. There is no mitral valve stenosis. Doppler and Color-flow revealed mild to moderate mitral regurgitation. TRICUSPID VALVE The tricuspid valve is normal in structure and function. Doppler and Color Flow revealed moderate tri cuspid regurgitation. There is moderate pulmonary hypertension. The PA pressure was estimated at 59 m mHg. There is no tricuspid valve stenosis. PULMONIC VALVE The pulmonary valve is normal in structure and function. Doppler and Color Flow revealed mild pulmoni c valvular regurgitation. There is no pulmonic valvular stenosis. GREAT VESSELS The aortic root is normal in size. The ascending aorta is normal in size. The IVC is dilated and quynh apses <50% with inspiration. PERICARDIAL EFFUSION There is no evidence of significant pericardial effusion. Critical Notification Critical Value: No <Conclusion> Left ventricle systolic function is moderately to severely impaired. The Ejection Fraction is 25-30%. Mild to moderate mitral regurgitation. Moderate tricuspid regurgitation. There is moderate pulmonary hypertension. The PA pressure was estimated at 59 mmHg. There is no evidence of significant pericardial effusion. Signed by : Papito Hernandez, Electronically Approved : 11/21/2018 14:18:19
[2018-11-21] MEDS ORDERED: DIGOXIN IV 500 MCG/2 ML AMPUL. IV ONE (14:45)
[2018-11-21] MEDS: cefTRIAXone IV Push 1 GM VIAL. IVP SCH (17:29)
[2018-11-21 19:10] VITALS: BP 146/66
[2018-11-21 20:21] LABS: BILIRUBIN,URINE NEGATIVE (NEG); CLARITY,URINE CLEAR; COLOR,URINE YELLOW; NITRITE,URINE NEGATIVE (NEG); PH,URINE 5.5; PROTEIN,URINE NEGATIVE (NEG-TRACE); UROBILINOGEN,URINE 0.2 mg/dL (0.2 mg/dL)
[2018-11-21 20:29] LABS: BACTERIA,URINE FEW /HPF (0-FEW); RBC,URINE 0 /HPF (0-2); SQUAMOUS EPITHELIAL CELL,UR FEW /LPF
[2018-11-21 20:30] LABS: HYALINE CASTS, URINE MODERATE /HPF
[2018-11-21] MEDS: diphenhydrAMINE HCL 25 MG CAPSULE PO SCH (21:00)
[2018-11-21] MEDS: ATORVASTATIN CALCIUM 10 MG TABLET. PO SCH (21:15)
[2018-11-21] MEDS: FAMOTIDINE 20 MG TABLET. PO SCH (21:15)
[2018-11-21] MEDS: METOPROLOL TART IMMED RELEASE 25 MG TABLET. PO SCH (21:15)
[2018-11-21] MEDS: LACTOBACILLUS RHAMNOSUS GG 1 CAPSULE. PO SCH (21:15)
[2018-11-21 23:45] VITALS: BP 148/89
[2018-11-22 03:25] VITALS: BP 148/67
[2018-11-22] MEDS: LEVOTHYROXINE 100 MCG TABLET PO SCH (05:10)
[2018-11-22] MEDS: traMADol 50 MG TABLET PO SCH ×3 (05:10→18:00)
[2018-11-22 07:00] VITALS: BP 130/61
[2018-11-22] MEDS: SERTRALINE 50 MG TABLET. PO SCH (08:49)
[2018-11-22] MEDS: MULTIVITAMIN with MINERAL TABLET. PO SCH (08:49)
[2018-11-22] MEDS: hydroCHLOROthiazide 25 MG TABLET PO SCH (08:49)
[2018-11-22] MEDS: MAGNESIUM OXIDE 400 MG TABLET PO SCH ×2 (08:49→20:43)
[2018-11-22] MEDS: LACTOBACILLUS RHAMNOSUS GG 1 CAPSULE. PO SCH ×2 (08:49→20:43)
[2018-11-22] MEDS: LISINOPRIL 5 MG TABLET. PO SCH (08:50)
[2018-11-22] MEDS: METOPROLOL TART IMMED RELEASE 25 MG TABLET. PO SCH ×2 (08:50→20:45)
[2018-11-22] MEDS: AZITHROMYCIN 250 MG TABLET. PO SCH (08:51)
[2018-11-22] MEDS: DIGOXIN 125 MCG TABLET. PO SCH (08:51)
[2018-11-22] MEDS: APIXABAN 5 MG TABLET. PO SCH (08:51)
[2018-11-22] MEDS: guaiFENesin DM 200MG/20MG 10 ML SYRUP PO SCH ×4 (08:51→20:46)
[2018-11-22] MEDS ORDERED: METO25TA4 PO (09:07)
[2018-11-22] MEDS ORDERED: AMOX1TAB10 PO (09:07)
[2018-11-22] MEDS ORDERED: GUAI5SYR PO (09:07)
[2018-11-22] MEDS ORDERED: ALBU2.5V8 NEB (09:07)
--- NOTE | 2018-11-22 10:20 | PDOC ---
PROGRESS NOTES Chief Complaint Chief Complaint acute on chronic A fib RVR on eliquis severe cardiomyopathy, severely diminished ef 25% - new CAP, left with small left pl effusion [place] resident FULL CODE HTN, GERD, lipids, insomnia - chronic stable GEn weakness - SNU candidate History of Present Illness History of Present Illness Off cardizem gtt HR 90s-100 LIves in [place] But PT recs SNU She is unhappy about it but might be agreeable EF 25% Left ventricle systolic function is moderately to severely impaired. The Ejection Fraction is 25-30%. Mild to moderate mitral regurgitation. Moderate tricuspid regurgitation. There is moderate pulmonary hypertension. The PA pressure was estimated at 59 mmHg. There is no evidence of significant pericardial effusion. PLAn: Await cards rate control PT.OT SW COnt CAP abx - i shifted to PO today keep tele Vitals Vitals Vital Signs Date Time Temp Pulse Resp B/P (MAP) Pulse Ox O2 Delivery O2 Flow Rate FiO2 11/22/18 08:54 99 130/61 11/22/18 08:00 Nasal Cannula 4.0 11/22/18 07:00 97.6 16 97 97.6 Physical Exam General: Alert, Oriented X3, Cooperative, No acute distress Lungs: Clear Abdomen: Normal bowel sounds, Soft, No tenderness, No hepatosplenomegaly, No masses Extremities: No clubbing, No cyanosis, No edema, Normal pulses, No tenderness/swelling Skin: No rashes, No breakdown, No significant lesion Labs LABS Laboratory Tests Test 11/21/18 12:35 11/21/18 19:30 Digoxin Level 0.5 ng/mL (0.9-2.0) Digoxin Last Dose Date 11/21/18 Digoxin Last Dose Time 0900 Urine Collection Type Unknown Urine Color Yellow Urine Clarity Clear Urine pH 5.5 Urine Specific [place] 1.025 Urine Protein Negative mg/dL (NEG-TRACE) Urine Glucose (UA) Negative mg/dL (NEG) Urine Ketones (Stick) Negative mg/dL (NEG) Urine Blood Negative (NEG) Urine Nitrite Negative (NEG) Urine Bilirubin Negative (NEG) Urine Urobilinogen Dipstick 0.2 mg/dL (0.2 mg/dL) Urine Leukocyte Esterase Small (NEG) Urine RBC 0 /HPF (0-2) Urine WBC 5-10 /HPF (0-4) Urine Squamous Epithelial Cells Few /LPF Urine Bacteria Few /HPF (0-FEW) Urine Hyaline Casts Moderate /HPF Urine Mucus Marked /LPF Review of Systems Review of Systems easily fatigued and soa/tired, no abd pain, no depression, no cp, no leg edema Assessment and Plan Assessmemt and Plan Problems Medical Problems: (1) Atrial fibrillation with RVR Status: Acute (2) CAP (community acquired pneumonia) Status: Acute (3) GERD (gastroesophageal reflux disease) Status: Chronic (4) HLD (hyperlipidemia) Status: Chronic (5) HTN (hypertension) Status: Chronic (6) Insomnia Status: Chronic Comment Review of Relevant I have reviewed the following items ori (where applicable) has been applied. Labs Laboratory Tests Test 11/20/18 13:32 11/21/18 12:35 11/21/18 19:30 White Blood Count 6.3 x10^3/uL (4.0-11.0) Red Blood Count 4.15 x10^6/uL (3.50-5.40) Hemoglobin 13.7 g/dL (12.0-15.5) Hematocrit 40.8 % (36.0-47.0) Mean Corpuscular Volume 98 fL (79-100) Mean Corpuscular Hemoglobin 33 pg (25-35) Mean Corpuscular Hemoglobin Concent 34 g/dL (31-37) Red Cell Distribution Width 15.1 % (11.5-14.5) Platelet Count 146 x10^3/uL (140-400) Neutrophils (%) (Auto) 63 % (31-73) Lymphocytes (%) (Auto) 26 % (24-48) Monocytes (%) (Auto) 8 % (0-9) Eosinophils (%) (Auto) 2 % (0-3) Basophils (%) (Auto) 0 % (0-3) Neutrophils # (Auto) 4.0 x10^3/uL (1.8-7.7) Lymphocytes # (Auto) 1.6 x10^3/uL (1.0-4.8) Monocytes # (Auto) 0.5 x10^3/uL (0.0-1.1) Eosinophils # (Auto) 0.1 x10^3/uL (0.0-0.7) Basophils # (Auto) 0.0 x10^3/uL (0.0-0.2) Prothrombin Time 18.4 SEC (11.7-14.0) Prothromb Time International Ratio 1.6 (0.8-1.1) Activated Partial Thromboplast Time 35 SEC (24-38) Sodium Level 144 mmol/L (136-145) Potassium Level 3.8 mmol/L (3.5-5.1) Chloride Level 106 mmol/L (98-107) Carbon Dioxide Level 28 mmol/L (21-32) Anion Gap 10 (6-14) Blood Urea Nitrogen 13 mg/dL (7-20) Creatinine 0.9 mg/dL (0.6-1.0) Estimated GFR (Cockcroft-Gault) 59.4 BUN/Creatinine Ratio 14 (6-20) Glucose Level 104 mg/dL (70-99) Calcium Level 9.2 mg/dL (8.5-10.1) Magnesium Level 1.9 mg/dL (1.8-2.4) Total Bilirubin 0.8 mg/dL (0.2-1.0) Aspartate Amino Transf (AST/SGOT) 42 U/L (15-37) Alanine Aminotransferase (ALT/SGPT) 45 U/L (14-59) Alkaline Phosphatase 32 U/L (46-116) Troponin I Quantitative < 0.017 ng/mL (0.000-0.055) ZL-Iiq-W-Type Natriuretic Peptide 7862 pg/mL (0-449) Total Protein 7.3 g/dL (6.4-8.2) Albumin 3.5 g/dL (3.4-5.0) Albumin/Globulin Ratio 0.9 (1.0-1.7) Thyroid Stimulating Hormone (TSH) 0.169 uIU/mL (0.358-3.74) Digoxin Level 0.5 ng/mL (0.9-2.0) Digoxin Last Dose Date 11/21/18 Digoxin Last Dose Time 0900 Urine Collection Type Unknown Urine Color Yellow Urine Clarity Clear Urine pH 5.5 Urine Specific [place] 1.025 Urine Protein Negative mg/dL (NEG-TRACE) Urine Glucose (UA) Negative mg/dL (NEG) Urine Ketones (Stick) Negative mg/dL (NEG) Urine Blood Negative (NEG) Urine Nitrite Negative (NEG) Urine Bilirubin Negative (NEG) Urine Urobilinogen Dipstick 0.2 mg/dL (0.2 mg/dL) Urine Leukocyte Esterase Small (NEG) Urine RBC 0 /HPF (0-2) Urine WBC 5-10 /HPF (0-4) Urine Squamous Epithelial Cells Few /LPF Urine Bacteria Few /HPF (0-FEW) Urine Hyaline Casts Moderate /HPF Urine Mucus Marked /LPF Laboratory Tests Test 11/21/18 12:35 11/21/18 19:30 Digoxin Level 0.5 ng/mL (0.9-2.0) Digoxin Last Dose Date 11/21/18 Digoxin Last Dose Time 0900 Urine Collection Type Unknown Urine Color Yellow Urine Clarity Clear Urine pH 5.5 Urine Specific [place] 1.025 Urine Protein Negative mg/dL (NEG-TRACE) Urine Glucose (UA) Negative mg/dL (NEG) Urine Ketones (Stick) Negative mg/dL (NEG) Urine Blood Negative (NEG) Urine Nitrite Negative (NEG) Urine Bilirubin Negative (NEG) Urine Urobilinogen Dipstick 0.2 mg/dL (0.2 mg/dL) Urine Leukocyte Esterase Small (NEG) Urine RBC 0 /HPF (0-2) Urine WBC 5-10 /HPF (0-4) Urine Squamous Epithelial Cells Few /LPF Urine Bacteria Few /HPF (0-FEW) Urine Hyaline Casts Moderate /HPF Urine Mucus Marked /LPF Medications Current Medications Sodium Chloride 500 ml @ 500 mls/hr 1X ONCE IV Last administered on 11/20/18at 13:50; Start 11/20/18 at 13:45; Stop 11/20/18 at 14:44; Status DC Ondansetron HCl (Zofran) 4 mg 1X ONCE IV Last administered on 11/20/18at 13:50; Start 11/20/18 at 13:45; Stop 11/20/18 at 13:46; Status DC Morphine Sulfate (Morphine Sulfate) 2 mg 1X ONCE IV ; Start 11/20/18 at 13:45; Stop 11/20/18 at 13:46; Status DC Diltiazem HCl (Cardizem Iv Push) 10 mg 1X ONCE IVP Last administered on 11/20/18at 13:48; Start 11/20/18 at 13:45; Stop 11/20/18 at 13:46; Status DC Diltiazem HCl 125 mg/Dextrose 125 ml @ 5 mls/hr 1X ONCE IV ; Start 11/20/18 at 14:00; Stop 11/20/18 at 14:49; Status DC Acetaminophen (Tylenol) 500 mg PRN Q6HRS PRN PO MILD PAIN / TEMP Last administered on 11/20/18 18:44; Start 11/20/18 at 15:30 Acetaminophen/ Codeine Phosphate (Tylenol #3) 1 tab PRN Q6HRS PRN PO MODERATE PAIN; Start 11/20/18 at 15:30 Ondansetron HCl (Zofran) 4 mg PRN Q6HRS PRN IV NAUSEA/VOMITING; Start 11/20/18 at 15:30 Apixaban (Eliquis) 5 mg BID PO Last administered on 11/22/18 08:54; Start 11/20/18 at 21:00 Digoxin (Lanoxin) 125 mcg DAILY PO Last administered on 11/22/18 08:54; Start 11/21/18 at 09:00 Docusate Sodium (Colace) 100 mg BID PRN PO CONSTIPATION Last administered on 11/21/18 08:43; Start 11/20/18 at 15:30 Famotidine (Pepcid) 20 mg HS PO Last administered on 11/21/18 21:15; Start 11/20/18 at 21:00 Levothyroxine Sodium (Synthroid) 100 mcg DAILY06 PO Last administered on 11/22/18 05:10; Start 11/21/18 at 06:00 Magnesium Oxide (Magnesium Oxide) 400 mg BID PO Last administered on 11/22/18 08:54; Start 11/20/18 at 21:00 Metoprolol Tartrate (Lopressor) 50 mg BID PO Last administered on 11/21/18 08:43; Start 11/20/18 at 21:00; Stop 11/21/18 at 14:35; Status DC Tramadol HCl (Ultram) 50 mg Q6HRS PO Last administered on 11/21/18 18:15; Start 11/20/18 at 18:00 Diphenhydramine HCl (Benadryl) 50 mg QHS PO Last administered on 11/20/18 21:04; Start 11/20/18 at 21:00 Hydrochlorothiazide (Hydrodiuril) 25 mg DAILY PO Last administered on 11/22/18 08:54; Start 11/21/18 at 09:00 Lisinopril (Prinivil) 2.5 mg DAILY PO Last administered on 11/22/18 08:54; Start 11/21/18 at 09:00 Atorvastatin Calcium (Lipitor) 10 mg QHS PO Last administered on 11/21/18 21:16; Start 11/20/18 at 21:00 Sertraline HCl (Zoloft) 100 mg DAILY PO Last administered on 11/22/18 08:54; Start 11/21/18 at 09:00 Multivitamins (Thera M Plus) 1 tab DAILY PO Last administered on 11/22/18 08:54; Start 11/21/18 at 09:00 Ceftriaxone Sodium (Rocephin) 1 gm Q24H IVP Last administered on 11/21/18 17:31; Start 11/20/18 at 16:00 Azithromycin (Zithromax) 250 mg DAILY PO Last administered on 11/22/18 08:54; Start 11/21/18 at 09:00 Azithromycin (Zithromax) 500 mg 1X ONCE PO Last administered on 11/20/18 18:44; Start 11/20/18 at 15:30; Stop 11/20/18 at 15:31; Status DC Albuterol Sulfate (Ventolin Neb Soln) 2.5 mg PRN Q4HRS PRN NEB SHORTNESS OF BREATH; Start 11/20/18 at 15:30 Guaifenesin (Robitussin Dm) 10 ml QID PO Last administered on 11/22/18 08:54; Start 11/20/18 at 17:00 Morphine Sulfate (Morphine Sulfate) 1 mg PRN Q2HR PRN IV PAIN; Start 11/20/18 at 15:30 Lactobacillus Rhamnosus (Culturelle) 1 cap BID PO Last administered on 11/22/18 08:54; Start 11/21/18 at 21:00 Digoxin (Lanoxin) 250 mcg 1X ONCE IV Last administered on 11/21/18 17:31; Start 11/21/18 at 14:45; Stop 11/21/18 at 14:46; Status DC Metoprolol Tartrate (Lopressor) 75 mg BID PO Last administered on 11/22/18 08:54; Start 11/21/18 at 21:00 Active Scripts Active Amox Tr-K Clv 500-125 Mg Tab (Amoxicillin/Potassium Clav) 1 Each Tablet 1 Tab PO BID Guaifenesin Dm Syrup (Guaifenesin/Dextromethorphan) 5 Ml Syrup 10 Ml PO QID 10 Days Metoprolol Tartrate 25 Mg Tablet 75 Mg PO BID Proair Hfa (Albuterol Sulfate) 8.5 Gm Hfa.aer.ad 2.5 Mg NEB PRN Q4HRS PRN 30 Days Mag-Oxide (Magnesium Oxide) 400 Mg Tablet 1 Tab PO BID Reported Digoxin 125 Mcg Tablet 1 Tab PO DAILY Colace (Docusate Sodium) 100 Mg Capsule 1 Cap PO BID PRN Unisom (Diphenhydramine Hcl) 50 Mg Capsule 50 Mg PO HS Hydrochlorothiazide Tablet (Hydrochlorothiazide) 12.5 Mg Tablet 2 Tab PO DAILY Eliquis (Apixaban) 2.5 Mg Tablet 5 Mg PO BID Famotidine 20 Mg Tablet 20 Mg PO HS Metoprolol Tartrate 50 Mg Tablet 50 Mg PO BID Ultram (Tramadol Hcl) 50 Mg Tablet 1 Tab PO Q6HRS Levothyroxine Sodium 100 Mcg Tablet 1 Tab PO DAILY Lisinopril 2.5 Mg Tablet 2.5 Mg PO DAILY Multi Vitamin Daily (Multivitamin) 1 Each Tablet 1 Each PO Zoloft (Sertraline Hcl) 100 Mg Tablet 100 Mg PO DAILY Lovastatin 40 Mg Tablet 40 Mg PO HS Vitals/I & O Vital Sign - Last 24 Hours 11/21/18 11/21/18 11/21/18 11/21/18 10:39 13:07 14:03 17:16 Temp 97.9 97.7 97.9 97.7 Pulse 93 101 Resp 20 17 B/P (MAP) 111/56 (74) 121/58 (79) Pulse Ox 97 98 98 96 O2 Delivery Nasal Cannula Nasal Cannula Nasal Cannula Nasal Cannula O2 Flow Rate 5.0 5.0 5.0 5.0 11/21/18 11/21/18 11/21/18 11/21/18 17:31 18:15 19:10 20:00 Temp 97.7 97.7 Pulse 101 77 Resp 19 B/P (MAP) 121/58 146/66 (92) Pulse Ox 96 98 O2 Delivery Nasal Cannula Nasal Cannula Nasal Cannula O2 Flow Rate 5.0 5.0 5.0 11/21/18 11/21/18 11/21/18 11/22/18 21:09 21:15 23:45 03:25 Temp 97.9 97.4 97.9 97.4 Pulse 77 72 71 Resp 18 18 18 B/P (MAP) 146/66 148/89 (108) 148/67 (94) Pulse Ox 98 96 98 O2 Delivery Nasal Cannula Nasal Cannula Nasal Cannula O2 Flow Rate 5.0 5.0 5.0 11/22/18 11/22/18 11/22/18 11/22/18 07:00 08:00 08:54 08:54 Temp 97.6 97.6 Pulse 73 88 88 Resp 16 B/P (MAP) 130/61 (84) 130/61 130/61 Pulse Ox 97 O2 Delivery Nasal Cannula Nasal Cannula O2 Flow Rate 4.0 4.0 11/22/18 08:54 Pulse 99 B/P (MAP) 130/61 Intake and Output 11/21/18 11/21/18 11/22/18 14:59 22:59 06:59 Intake Total 240 ml 200 ml Output Total 400 ml Balance 240 ml -400 ml 200 ml ELIDA MAC MD Nov 22, 2018 10:19
[2018-11-22 11:00] VITALS: BP 127/52
--- NOTE | 2018-11-22 11:23 | NUR ---
SS following up with discharge planning. PT/OT recommended senior care unit. SS met with pt and spoke with pt's son to discuss discharge planning and senior care unit. Pt and and pt's son agreeable to senior care unit and requested referral be phoned and faxed to [facility], ; fax [phone]. SS phoned and faxed referral. SS will await acceptance decision and will proceed accordingly. Addendum: 11/23/18 at 1217 by VERONIKA QUINN SS SS following up with discharge planning. Pt accepted at [facility], ; fax [phone], and [facility], ; fax [phone], as a second option. SS will await discharge orders and will proceed accordingly.
--- NOTE | 2018-11-22 12:19 | PDOC ---
CARDIO Progress Notes Date and Time Date of Service 11/22/18 Time of Evaluation 1210 Subjective Subjective: No Chest Pain, No shortness of breath Vitals Vitals Vital Signs Date Time Temp Pulse Resp B/P (MAP) Pulse Ox O2 Delivery O2 Flow Rate FiO2 11/22/18 11:00 97.6 73 16 127/52 (77) 95 Nasal Cannula 4.0 97.6 Weight Weight [ ] Input and Output Intake and Output Intake and Output 11/22/18 06:59 Intake Total 440 ml Output Total 400 ml Balance 40 ml Intake Oral 440 ml Output Urine Total 400 ml Laboratory Labs Laboratory Tests Test 11/21/18 12:35 11/21/18 19:30 Digoxin Level 0.5 ng/mL (0.9-2.0) Digoxin Last Dose Date 11/21/18 Digoxin Last Dose Time 0900 Urine Collection Type Unknown Urine Color Yellow Urine Clarity Clear Urine pH 5.5 Urine Specific [place] 1.025 Urine Protein Negative mg/dL (NEG-TRACE) Urine Glucose (UA) Negative mg/dL (NEG) Urine Ketones (Stick) Negative mg/dL (NEG) Urine Blood Negative (NEG) Urine Nitrite Negative (NEG) Urine Bilirubin Negative (NEG) Urine Urobilinogen Dipstick 0.2 mg/dL (0.2 mg/dL) Urine Leukocyte Esterase Small (NEG) Urine RBC 0 /HPF (0-2) Urine WBC 5-10 /HPF (0-4) Urine Squamous Epithelial Cells Few /LPF Urine Bacteria Few /HPF (0-FEW) Urine Hyaline Casts Moderate /HPF Urine Mucus Marked /LPF Physical Exam HEENT: Neck Supple W Full Motion Chest: Symmetric LUNGS: Clear to Auscultation Heart: S1S2, no thrills, no rubs, no gallops, no murmurs, irregularly irr egular, other (rate 70s) Abdomen: Soft N/T Extremities: No Edema Neurology: alert, oriented, follow commands Assessment Assessment 1. Acute respiratory failure with possible PNA 2. Paroxysmal AFIB; RVR upon arrival. on Elquis for stroke prevention. HR now well controlled. Device interrogation reveals normal function. 100% AFIB burden. No high ventricular rates. 3. Chest pressure; occurring intermittently for the last 6 months. Associated with SOA. 4. SSS s/p [employer] pacemaker implantation 5. Hypertension; controlled 6. Hyperlipidemia; statin therapy 7. Chronic systolic/diastolic heart failure; Echo 2016 with preserved LV systolic function as noted above. clinically compensated. Echo yesterday showed LVEF 25-30% 8. Cardiomyopathy; new finging Recommendations Potential further ischemic workup. Will d/w primary utility maintenance worker,. Continue digoxin, metoprolol for rate control Optimization therapy with ACEi, BB Hold Eliquis for now. NPO p [place] D/w primary utility maintenance worker. Further risk stratification with MPI in am. Supportive care DORCAS MASTERS APRN Nov 22, 2018 12:19
[2018-11-22 15:00] VITALS: BP 106/67
[2018-11-22] MEDS: cefTRIAXone IV Push 1 GM VIAL. IVP SCH (17:25)
[2018-11-22 19:00] VITALS: BP 123/47
[2018-11-22] MEDS: FAMOTIDINE 20 MG TABLET. PO SCH (20:44)
[2018-11-22] MEDS: ATORVASTATIN CALCIUM 10 MG TABLET. PO SCH (20:45)
[2018-11-22] MEDS: diphenhydrAMINE HCL 25 MG CAPSULE PO SCH (20:46)
[2018-11-22 23:24] VITALS: BP 139/79
[2018-11-23 03:25] VITALS: BP_SYST 118
[2018-11-23] MEDS: traMADol 50 MG TABLET PO SCH ×5 (05:56→23:01)
[2018-11-23] MEDS: LEVOTHYROXINE 100 MCG TABLET PO SCH (05:56)
[2018-11-23 07:00] VITALS: BP 140/63
[2018-11-23] MEDS ORDERED: REGADENOSON 0.4 MG/5 ML DISP.SYRIN. IV ONE (08:30)
[2018-11-23] MEDS: guaiFENesin DM 200MG/20MG 10 ML SYRUP PO SCH ×4 (09:00→21:00)
[2018-11-23 11:00] VITALS: BP 159/76
[2018-11-23] MEDS: hydroCHLOROthiazide 25 MG TABLET PO SCH (11:09)
[2018-11-23] MEDS: MULTIVITAMIN with MINERAL TABLET. PO SCH (11:09)
[2018-11-23] MEDS: DIGOXIN 125 MCG TABLET. PO SCH (11:11)
[2018-11-23] MEDS: SERTRALINE 50 MG TABLET. PO SCH (11:12)
[2018-11-23] MEDS: AMOXICILLIN/K CLAV 500/125MG TABLET. PO SCH ×2 (11:12→21:26)
[2018-11-23] MEDS: LACTOBACILLUS RHAMNOSUS GG 1 CAPSULE. PO SCH ×2 (11:13→21:26)
[2018-11-23] MEDS: LISINOPRIL 5 MG TABLET. PO SCH (11:13)
[2018-11-23] MEDS: METOPROLOL TART IMMED RELEASE 25 MG TABLET. PO SCH ×2 (11:14→21:27)
[2018-11-23] MEDS: MAGNESIUM OXIDE 400 MG TABLET PO SCH ×2 (11:19→21:27)
--- NOTE | 2018-11-23 11:20 | PDOC ---
PROGRESS NOTES Chief Complaint Chief Complaint acute on chronic A fib RVR on eliquis severe cardiomyopathy, severely diminished ef 25% - new CAP, left with small left pl effusion [place] FULL CODE HTN, GERD, lipids, insomnia - chronic stable GEn weakness - SNU candidate History of Present Illness History of Present Illness Off cardizem gtt Just got back from [place] and is nauseated and has a headache SBP 200s, looks uncomfortable but no CP EF 25% LIves in [place] But PT recs SNU - slated for HCR Left ventricle systolic function is moderately to severely impaired. The Ejection Fraction is 25-30%. Mild to moderate mitral regurgitation. Moderate tricuspid regurgitation. There is moderate pulmonary hypertension. The PA pressure was estimated at 59 mmHg. There is no evidence of significant pericardial effusion. PLAn: Await [facility] Tylenol and zofran now rate control, bp control PT.OT SW COnt CAP abx - i shifted to PO today augmentin keep tele HCR on dc , likely monday - her Vitals Vitals Vital Signs Date Time Temp Pulse Resp B/P (MAP) Pulse Ox O2 Delivery O2 Flow Rate FiO2 11/23/18 08:00 Nasal Cannula 4.0 11/23/18 07:00 97.8 80 18 140/63 (88) 97 97.8 Physical Exam General: Alert, Oriented X3, Cooperative, No acute distress Lungs: Clear Abdomen: Normal bowel sounds, Soft, No tenderness, No hepatosplenomegaly, No masses Extremities: No clubbing, No cyanosis, No edema, Normal pulses, No ten derness/swelling Skin: No rashes, No breakdown, No significant lesion Review of Systems Review of Systems weak, nauseated, headache, no cp, no soa, no abd pain, rest 14 pt neg Assessment and Plan Assessmemt and Plan Problems Medical Problems: (1) Atrial fibrillation with RVR Status: Acute (2) CAP (community acquired pneumonia) Status: Acute (3) GERD (gastroesophageal reflux disease) Status: Chronic (4) HLD (hyperlipidemia) Status: Chronic (5) HTN (hypertension) Status: Chronic (6) Insomnia Status: Chronic Comment Review of Relevant I have reviewed the following items ori (where applicable) has been applied. Labs Laboratory Tests Test 11/21/18 12:35 11/21/18 19:30 Digoxin Level 0.5 ng/mL (0.9-2.0) Digoxin Last Dose Date 11/21/18 Digoxin Last Dose Time 0900 Urine Collection Type Unknown Urine Color Yellow Urine Clarity Clear Urine pH 5.5 Urine Specific [place] 1.025 Urine Protein Negative mg/dL (NEG-TRACE) Urine Glucose (UA) Negative mg/dL (NEG) Urine Ketones (Stick) Negative mg/dL (NEG) Urine Blood Negative (NEG) Urine Nitrite Negative (NEG) Urine Bilirubin Negative (NEG) Urine Urobilinogen Dipstick 0.2 mg/dL (0.2 mg/dL) Urine Leukocyte Esterase Small (NEG) Urine RBC 0 /HPF (0-2) Urine WBC 5-10 /HPF (0-4) Urine Squamous Epithelial Cells Few /LPF Urine Bacteria Few /HPF (0-FEW) Urine Hyaline Casts Moderate /HPF Urine Mucus Marked /LPF Clostridium difficile Toxin B Gene Negative (Negative) Medications Current Medications Sodium Chloride 500 ml @ 500 mls/hr 1X ONCE IV Last administered on 11/20/18at 13:50; Start 11/20/18 at 13:45; Stop 11/20/18 at 14:44; Status DC Ondansetron HCl (Zofran) 4 mg 1X ONCE IV Last administered on 11/20/18at 13:50; Start 11/20/18 at 13:45; Stop 11/20/18 at 13:46; Status DC Morphine Sulfate (Morphine Sulfate) 2 mg 1X ONCE IV ; Start 11/20/18 at 13:45; Stop 11/20/18 at 13:46; Status DC Diltiazem HCl (Cardizem Iv Push) 10 mg 1X ONCE IVP Last administered on 11/20/18at 13:48; Start 11/20/18 at 13:45; Stop 11/20/18 at 13:46; Status DC Diltiazem HCl 125 mg/Dextrose 125 ml @ 5 mls/hr 1X ONCE IV ; Start 11/20/18 at 14:00; Stop 11/20/18 at 14:49; Status DC Acetaminophen (Tylenol) 500 mg PRN Q6HRS PRN PO MILD PAIN / TEMP Last administered on 11/20/18at 18:44; Start 11/20/18 at 15:30 Acetaminophen/ Codeine Phosphate (Tylenol #3) 1 tab PRN Q6HRS PRN PO MODERATE PAIN; Start 11/20/18 at 15:30 Ondansetron HCl (Zofran) 4 mg PRN Q6HRS PRN IV NAUSEA/VOMITING; Start 11/20/18 at 15:30 Apixaban (Eliquis) 5 mg BID PO Last administered on 11/22/18 08:54; Start 11/20/18 at 21:00; Stop 11/22/18 at 15:23; Status DC Digoxin (Lanoxin) 125 mcg DAILY PO Last administered on 11/22/18 08:54; Start 11/21/18 at 09:00 Docusate Sodium (Colace) 100 mg BID PRN PO CONSTIPATION Last administered on 11/21/18 08:43; Start 11/20/18 at 15:30 Famotidine (Pepcid) 20 mg HS PO Last administered on 11/22/18 20:46; Start at 21:00 Levothyroxine Sodium (Synthroid) 100 mcg DAILY06 PO Last administered on 11/23/18 05:56; Start 11/21/18 at 06:00 Magnesium Oxide (Magnesium Oxide) 400 mg BID PO Last administered on 11/22/18 20:46; Start 11/20/18 at 21:00 Metoprolol Tartrate (Lopressor) 50 mg BID PO Last administered on 11/21/18 08:43; Start 11/20/18 at 21:00; Stop 11/21/18 at 14:35; Status DC Tramadol HCl (Ultram) 50 mg Q6HRS PO Last administered on 11/23/18 05:56; Start 11/20/18 at 18:00 Diphenhydramine HCl (Benadryl) 50 mg QHS PO Last administered on 11/22/18 20:46; Start 11/20/18 at 21:00 Hydrochlorothiazide (Hydrodiuril) 25 mg DAILY PO Last administered on 11/22/18 08:54; Start 11/21/18 at 09:00 Lisinopril (Prinivil) 2.5 mg DAILY PO Last administered on 11/22/18 08:54; Start 11/21/18 at 09:00 Atorvastatin Calcium (Lipitor) 10 mg QHS PO Last administered on 11/22/18 20:46; Start 11/20/18 at 21:00 Sertraline HCl (Zoloft) 100 mg DAILY PO Last administered on 11/22/18 08:54; Start 11/21/18 at 09:00 Multivitamins (Thera M Plus) 1 tab DAILY PO Last administered on 11/22/18 08:54; Start 11/21/18 at 09:00 Ceftriaxone Sodium (Rocephin) 1 gm Q24H IVP Last administered on 11/22/18 17:26; Start 11/20/18 at 16:00; Stop 11/23/18 at 08:59; Status DC Azithromycin (Zithromax) 250 mg DAILY PO Last administered on 11/22/18 08:54; Start 11/21/18 at 09:00; Stop 11/23/18 at 08:59; Status DC Azithromycin (Zithromax) 500 mg 1X ONCE PO Last administered on 11/20/18 18:44; Start 11/20/18 at 15:30; Stop 11/20/18 at 15:31; Status DC Albuterol Sulfate (Ventolin Neb Soln) 2.5 mg PRN Q4HRS PRN NEB SHORTNESS OF BREATH; Start 11/20/18 at 15:30 Guaifenesin (Robitussin Dm) 10 ml QID PO Last administered on 11/22/18 20:46; Start 11/20/18 at 17:00 Morphine Sulfate (Morphine Sulfate) 1 mg PRN Q2HR PRN IV PAIN; Start 11/20/18 at 15:30 Lactobacillus Rhamnosus (Culturelle) 1 cap BID PO Last administered on 11/22/18 20:46; Start 11/21/18 at 21:00 Digoxin (Lanoxin) 250 mcg 1X ONCE IV Last administered on 11/21/18 17:31; Start 11/21/18 at 14:45; Stop 11/21/18 at 14:46; Status DC Metoprolol Tartrate (Lopressor) 75 mg BID PO Last administered on 11/22/18 20:46; Start 11/21/18 at 21:00 Regadenoson (Lexiscan) 0.4 mg 1X ONCE IV Last administered on 11/23/18 10:31; Start 11/23/18 at 08:30; Stop 11/23/18 at 08:31; Status DC Amoxicillin/ Clavulanate Potassium (Augmentin 500/ 125mg) 1 tab BID PO ; Start 11/23/18 at 09:00 Active Scripts Active Amox Tr-K Clv 500-125 Mg Tab (Amoxicillin/Potassium Clav) 1 Each Tablet 1 Tab PO BID Guaifenesin Dm Syrup (Guaifenesin/Dextromethorphan) 5 Ml Syrup 10 Ml PO QID 10 Days Metoprolol Tartrate 25 Mg Tablet 75 Mg PO BID Proair Hfa (Albuterol Sulfate) 8.5 Gm Hfa.aer.ad 2.5 Mg NEB PRN Q4HRS PRN 30 Days Mag-Oxide (Magnesium Oxide) 400 Mg Tablet 1 Tab PO BID Reported Digoxin 125 Mcg Tablet 1 Tab PO DAILY Colace (Docusate Sodium) 100 Mg Capsule 1 Cap PO BID PRN Unisom (Diphenhydramine Hcl) 50 Mg Capsule 50 Mg PO HS Hydrochlorothiazide Tablet (Hydrochlorothiazide) 12.5 Mg Tablet 2 Tab PO DAILY Eliquis (Apixaban) 2.5 Mg Tablet 5 Mg PO BID Famotidine 20 Mg Tablet 20 Mg PO HS Metoprolol Tartrate 50 Mg Tablet 50 Mg PO BID Ultram (Tramadol Hcl) 50 Mg Tablet 1 Tab PO Q6HRS Levothyroxine Sodium 100 Mcg Tablet 1 Tab PO DAILY Lisinopril 2.5 Mg Tablet 2.5 Mg PO DAILY Multi Vitamin Daily (Multivitamin) 1 Each Tablet 1 Each PO Zoloft (Sertraline Hcl) 100 Mg Tablet 100 Mg PO DAILY Lovastatin 40 Mg Tablet 40 Mg PO HS Vitals/I & O Vital Sign - Last 24 Hours 11/22/18 11/22/18 11/22/18 11/22/18 14:50 15:00 15:54 19:00 Temp 97.6 97.7 97.6 97.7 Pulse 85 63 Resp 18 18 B/P (MAP) 106/67 (80) 123/47 (72) Pulse Ox 96 95 96 96 O2 Delivery Nasal Cannula Nasal Cannula Nasal Cannula Nasal Cannula O2 Flow Rate 3.0 4.0 3.0 4.0 11/22/18 11/22/18 11/22/18 11/23/18 20:05 20:46 23:24 01:05 Temp 97.6 97.6 Pulse 63 75 Resp 18 B/P (MAP) 123/47 139/79 (99) Pulse Ox 98 O2 Delivery Nasal Cannula Nasal Cannula Nasal Cannula O2 Flow Rate 4.0 4.0 4.0 11/23/18 11/23/18 11/23/18 11/23/18 03:25 05:56 07:00 08:00 Temp 97.7 97.8 97.7 97.8 Pulse 79 80 Resp 18 18 B/P (MAP) 118/ 140/63 (88) Pulse Ox 97 O2 Delivery Nasal Cannula Nasal Cannula Nasal Cannula Nasal Cannula O2 Flow Rate 97.0 3.0 4.0 Intake and Output 11/22/18 11/22/18 11/23/18 15:00 23:00 07:00 Intake Total 360 ml 400 ml 60 ml Balance 360 ml 400 ml 60 ml Nutrition Consultation Dietary Evaluation: Recommendations by RD: Increase Calorie Intake, Protein supplementation Comments: Continue w/cardiac diet, honor food preferences, and provide snacks as requested REC Ensure TID (chocolate) Expected Outcomes/Goals: PO intake to meet >75% est needs Malnutrition Findings: Food and Nutrition Intake (Sev: <50% est energy req 5days Weight Status: Underweight ELIDA MAC MD Nov 23, 2018 11:19
--- NOTE | 2018-11-23 12:18 | NUR ---
SS following up with discharge planning. Pt accepted at [facility], ; fax [phone], and [facility], ; fax [phone], as a second option. SS will await discharge orders and will proceed accordingly.
--- NOTE | 2018-11-23 13:37 | RAD ---
MR#: [id number] Date of Study: 11/23/2018 Ordering Physician: DORCAS MASTERS Referring Physician: RODRIGUE CUEVAS Tech: APPROVED REPORT Test Type: Pharmacological Stress Nurse/Tech: Adina Gutiérrez RN Test Indications: CP, Dyspnea (Pt tested on NC w/ 2L of O2 %) Cardiac History: Hypertension, pacemaker (anticoagulant on) Medications: See Electronic Medical Record Medical History: See Electronic Medical Record Resting ECG: A.fib Resting Heart Rate: 80 bpm Resting Blood Pressure: 143/69mmHg Pretest Chest Pain: No chest pain Nurse/Tech Notes S1S2 (irregular), decreased LS Consent: The procedure was explained to the patient in lay terms. Informed consent was witnessed. Kieran eout was entered into [employer]. History and Stress Test performed by Adina Gutiérrez RN Pharm. Details Pharmacologic stress testing was performed using 0.4mg per 5ml of regadenoson given intravenously ove r 7-10 seconds. Stress Symptoms Dyspnea, coughing, GONZALEZ, Nausea (late symptom), dry mouth POST EXERCISE Reason for Termination: Infusion complete Max HR: 128 bpm Max Blood Pressure: 169/76mmHg Chest Pain: No. Arrhythmia: No. ST Change: No. same as resting heart rhythm INTERPRETATION Stress EKG Conclusion: Baseline EKG showed atrial fibrillation with inferolateral ST depressions. No n-diagnostic changes at peak stress. Study quality was good. Left Ventricular size was Normal at Rest and Stress. Lung uptake was . Left Ventricular ejection fraction is 73%. The rest and stress images show normal perfusion, normal contraction and thickening. Conclusion 1. Regadenoson cardioisotope stress test did not show any evidence of ischemia or infarct. 2. Normal left ventricular systolic function with ejection fraction calculated at 73%. 3. Low risk for cardiac events. Signed by : Mally Brownally Approved : 11/23/2018 13:37:35
[2018-11-23 15:00] VITALS: BP 116/52
--- NOTE | 2018-11-23 16:41 | PDOC ---
PROGRESS NOTES Subjective Subjective Patient seen and examined Objective Objective Vital Signs Date Time Temp Pulse Resp B/P (MAP) Pulse Ox O2 Delivery O2 Flow Rate FiO2 11/23/18 15:00 97.9 76 18 116/52 (73) 94 Nasal Cannula 3.0 97.9 Intake and Output0 11/23/18 07:00 Intake Total 820 ml Balance 820 ml Intake Oral 820 ml # Voids 3 # Bowel Movements 3 Physical Exam Abdomen: Normal bowel sounds Heart: Other (irreg. irreg.) General: No acute distress Lungs: Other (mildly decreased breath sounds) Assessment Assessment Problems Medical Problems: (1) Atrial fibrillation with RVR Status: Acute (2) CAP (community acquired pneumonia) Status: Acute (3) GERD (gastroesophageal reflux disease) Status: Chronic (4) HLD (hyperlipidemia) Status: Chronic (5) HTN (hypertension) Status: Chronic (6) Insomnia Status: Chronic 1. Acute respiratory failure with possible PNA. Improving 2. Paroxysmal AFIB; RVR upon arrival. on Elquis for stroke prevention. HR now well controlled. Device interrogation reveals normal function. 100% AFIB burden. No high ventricular rates. 3. Chest pressure; occurring intermittently for the last 6 months. MPI today. 4. SSS s/p [employer] pacemaker implantation 5. Hypertension; controlled 6. Hyperlipidemia; statin therapy 7. Chronic systolic/diastolic heart failure; Echo 2016 with preserved LV syst olic function as noted above. clinically compensated. Echo yesterday showed LVEF 25-30% Comment Review of Relevant I have reviewed the following items ori (where applicable) has been applied. Labs Laboratory Tests Test 11/21/18 19:30 Urine Collection Type Unknown Urine Color Yellow Urine Clarity Clear Urine pH 5.5 Urine Specific Urania 1.025 Urine Protein Negative mg/dL (NEG-TRACE) Urine Glucose (UA) Negative mg/dL (NEG) Urine Ketones (Stick) Negative mg/dL (NEG) Urine Blood Negative (NEG) Urine Nitrite Negative (NEG) Urine Bilirubin Negative (NEG) Urine Urobilinogen Dipstick 0.2 mg/dL (0.2 mg/dL) Urine Leukocyte Esterase Small (NEG) Urine RBC 0 /HPF (0-2) Urine WBC 5-10 /HPF (0-4) Urine Squamous Epithelial Cells Few /LPF Urine Bacteria Few /HPF (0-FEW) Urine Hyaline Casts Moderate /HPF Urine Mucus Marked /LPF Clostridium difficile Toxin B Gene Negative (Negative) Microbiology 11/21/18 Urine Culture - Final, Complete 11/21/18 Urine Culture Result 1 (STEPHEN) - Final, Complete Medications Current Medications Sodium Chloride 500 ml @ 500 mls/hr 1X ONCE IV Last administered on 11/20/18at 13:50; Start 11/20/18 at 13:45; Stop 11/20/18 at 14:44; Status DC Ondansetron HCl (Zofran) 4 mg 1X ONCE IV Last administered on 11/20/18at 13:50; Start 11/20/18 at 13:45; Stop 11/20/18 at 13:46; Status DC Morphine Sulfate (Morphine Sulfate) 2 mg 1X ONCE IV ; Start 11/20/18 at 13:45; Stop 11/20/18 at 13:46; Status DC Diltiazem HCl (Cardizem Iv Push) 10 mg 1X ONCE IVP Last administered on 11/20/18at 13:48; Start 11/20/18 at 13:45; Stop 11/20/18 at 13:46; Status DC Diltiazem HCl 125 mg/Dextrose 125 ml @ 5 mls/hr 1X ONCE IV ; Start 11/20/18 at 14:00; Stop 11/20/18 at 14:49; Status DC Acetaminophen (Tylenol) 500 mg PRN Q6HRS PRN PO MILD PAIN / TEMP Last administered on 11/20/18at 18:44; Start 11/20/18 at 15:30 Acetaminophen/ Codeine Phosphate (Tylenol #3) 1 tab PRN Q6HRS PRN PO MODERATE PAIN; Start 11/20/18 at 15:30 Ondansetron HCl (Zofran) 4 mg PRN Q6HRS PRN IV NAUSEA/VOMITING Last a dministered on 11/23/18at 11:19; Start 11/20/18 at 15:30 Apixaban (Eliquis) 5 mg BID PO Last administered on 11/22/18at 08:54; Start 11/20/18 at 21:00; Stop 11/22/18 at 15:23; Status DC Digoxin (Lanoxin) 125 mcg DAILY PO Last administered on 11/23/18at 11:19; Start 11/21/18 at 09:00 Docusate Sodium (Colace) 100 mg BID PRN PO CONSTIPATION Last administered on 11/21/18 08:43; Start 11/20/18 at 15:30 Famotidine (Pepcid) 20 mg HS PO Last administered on 11/22/18 20:46; Start 11/20/18 at 21:00 Levothyroxine Sodium (Synthroid) 100 mcg DAILY06 PO Last administered on 11/23/18 05:56; Start 11/21/18 at 06:00 Magnesium Oxide (Magnesium Oxide) 400 mg BID PO Last administered on 11/23/18 11:19; Start 11/20/18 at 21:00 Metoprolol Tartrate (Lopressor) 50 mg BID PO Last administered on 11/21/18 08:43; Start 11/20/18 at 21:00; Stop 11/21/18 at 14:35; Status DC Tramadol HCl (Ultram) 50 mg Q6HRS PO Last administered on 11/23/18 11:19; Start 11/20/18 at 18:00 Diphenhydramine HCl (Benadryl) 50 mg QHS PO Last administered on 11/22/18 20:46; Start 11/20/18 at 21:00 Hydrochlorothiazide (Hydrodiuril) 25 mg DAILY PO Last administered on 11/23/18 11:19; Start 11/21/18 at 09:00 Lisinopril (Prinivil) 2.5 mg DAILY PO Last administered on 11/23/18 11:19; Start 11/21/18 at 09:00 Atorvastatin Calcium (Lipitor) 10 mg QHS PO Last administered on 11/22/18 20:46; Start 11/20/18 at 21:00 Sertraline HCl (Zoloft) 100 mg DAILY PO Last administered on 11/23/18 11:19; Start 11/21/18 at 09:00 Multivitamins (Thera M Plus) 1 tab DAILY PO Last administered on 11/23/18 11:19; Start 11/21/18 at 09:00 Ceftriaxone Sodium (Rocephin) 1 gm Q24H IVP Last administered on 11/22/18 17:26; Start 11/20/18 at 16:00; Stop 11/23/18 at 08:59; Status DC Azithromycin (Zithromax) 250 mg DAILY PO Last administered on 11/22/18 08:54; Start 11/21/18 at 09:00; Stop 11/23/18 at 08:59; Status DC Azithromycin (Zithromax) 500 mg 1X ONCE PO Last administered on 11/20/18at 18:44; Start 11/20/18 at 15:30; Stop 11/20/18 at 15:31; Status DC Albuterol Sulfate (Ventolin Neb Soln) 2.5 mg PRN Q4HRS PRN NEB SHORTNESS OF BREATH; Start 11/20/18 at 15:30 Guaifenesin (Robitussin Dm) 10 ml QID PO Last administered on 11/22/18at 20:46; Start 11/20/18 at 17:00 Morphine Sulfate (Morphine Sulfate) 1 mg PRN Q2HR PRN IV PAIN; Start 11/20/18 at 15:30 Lactobacillus Rhamnosus (Culturelle) 1 cap BID PO Last administered on 11/23/18at 11:19; Start 11/21/18 at 21:00 Digoxin (Lanoxin) 250 mcg 1X ONCE IV Last administered on 11/21/18at 17:31; Start 11/21/18 at 14:45; Stop 11/21/18 at 14:46; Status DC Metoprolol Tartrate (Lopressor) 75 mg BID PO Last administered on 11/23/18 11:19; Start 11/21/18 at 21:00 Regadenoson (Lexiscan) 0.4 mg 1X ONCE IV Last administered on 11/23/18at 10:31; Start 11/23/18 at 08:30; Stop 11/23/18 at 08:31; Status DC Amoxicillin/ Clavulanate Potassium (Augmentin 500/ 125mg) 1 tab BID PO Last administered on 11/23/18 11:19; Start 11/23/18 at 09:00 Active Scripts Active Amox Tr-K Clv 500-125 Mg Tab (Amoxicillin/Potassium Clav) 1 Each Tablet 1 Tab PO BID Guaifenesin Dm Syrup (Guaifenesin/Dextromethorphan) 5 Ml Syrup 10 Ml PO QID 10 Days Metoprolol Tartrate 25 Mg Tablet 75 Mg PO BID Proair Hfa (Albuterol Sulfate) 8.5 Gm Hfa.aer.ad 2.5 Mg NEB PRN Q4HRS PRN 30 Days Mag-Oxide (Magnesium Oxide) 400 Mg Tablet 1 Tab PO BID Reported Digoxin 125 Mcg Tablet 1 Tab PO DAILY Colace (Docusate Sodium) 100 Mg Capsule 1 Cap PO BID PRN Unisom (Diphenhydramine Hcl) 50 Mg Capsule 50 Mg PO HS Hydrochlorothiazide Tablet (Hydrochlorothiazide) 12.5 Mg Tablet 2 Tab PO DAILY Eliquis (Apixaban) 2.5 Mg Tablet 5 Mg PO BID Famotidine 20 Mg Tablet 20 Mg PO HS Metoprolol Tartrate 50 Mg Tablet 50 Mg PO BID Ultram (Tramadol Hcl) 50 Mg Tablet 1 Tab PO Q6HRS Levothyroxine Sodium 100 Mcg Tablet 1 Tab PO DAILY Lisinopril 2.5 Mg Tablet 2.5 Mg PO DAILY Multi Vitamin Daily (Multivitamin) 1 Each Tablet 1 Each PO Zoloft (Sertraline Hcl) 100 Mg Tablet 100 Mg PO DAILY Lovastatin 40 Mg Tablet 40 Mg PO HS Vitals/I & O Vital Sign - Last 24 Hours 11/22/18 11/22/18 11/22/18 11/22/18 19:00 20:05 20:46 23:24 Temp 97.7 97.6 97.7 97.6 Pulse 63 63 75 Resp 18 18 B/P (MAP) 123/47 (72) 123/47 139/79 (99) Pulse Ox 96 98 O2 Delivery Nasal Cannula Nasal Cannula Nasal Cannula O2 Flow Rate 4.0 4.0 4.0 11/23/18 11/23/18 11/23/18 11/23/18 01:05 03:25 05:56 07:00 Temp 97.7 97.8 97.7 97.8 Pulse 79 80 Resp 18 18 B/P (MAP) 118/ 140/63 (88) Pulse Ox 97 O2 Delivery Nasal Cannula Nasal Cannula Nasal Cannula Nasal Cannula O2 Flow Rate 4.0 97.0 3.0 11/23/18 11/23/18 11/23/18 11/23/18 08:00 11:00 11:19 11:19 Temp 98.2 98.2 Pulse 89 97 Resp 18 B/P (MAP) 159/76 (103) 159/76 Pulse Ox 93 O2 Delivery Nasal Cannula Nasal Cannula Nasal Cannula O2 Flow Rate 4.0 3.0 3.0 11/23/18 11/23/1811/23/19 11:19 11:19 15:00 Temp 97.9 97.9 Pulse 111 104 76 Resp 18 B/P (MAP) 159/76 159/76 116/52 (73) Pulse Ox 94 O2 Delivery Nasal Cannula O2 Flow Rate 3.0 Intake and Output 11/22/18 11/22/18 11/23/18 15:00 23:00 07:00 Intake Total 360 ml 400 ml 60 ml Balance 360 ml 400 ml 60 ml Nutrition Consultation Dietary Evaluation: Recommendations by RD: Increase Calorie Intake, Protein supplementation Comments: Continue w/cardiac diet, honor food preferences, and provide snacks as requested REC Ensure TID (chocolate) Expected Outcomes/Goals: PO intake to meet >75% est needs Malnutrition Findings: Food and Nutrition Intake (Sev: <50% est energy req 5days Weight Status: Underweight JENNIFER NAVARRETE MD Nov 23, 2018 16:41
[2018-11-23 19:05] VITALS: BP 115/58
[2018-11-23] MEDS: diphenhydrAMINE HCL 25 MG CAPSULE PO SCH (21:26)
[2018-11-23] MEDS: FAMOTIDINE 20 MG TABLET. PO SCH (21:27)
[2018-11-23] MEDS: ATORVASTATIN CALCIUM 10 MG TABLET. PO SCH (21:27)
[2018-11-23 23:05] VITALS: BP 106/64
[2018-11-24] MEDS: traMADol 50 MG TABLET PO SCH ×2 (06:00→12:00)
[2018-11-24] MEDS: LEVOTHYROXINE 100 MCG TABLET PO SCH (06:08)
[2018-11-24 07:00] VITALS: BP 143/87
[2018-11-24] MEDS: guaiFENesin DM 200MG/20MG 10 ML SYRUP PO SCH ×2 (09:00→13:00)
--- NOTE | 2018-11-24 09:22 | SNU/HH DC ---
DISCHARGE ORDERS DISCHARGE INFORMATION: DISCHARGE DATE: Nov 24, 2018 FINAL DIAGNOSIS Problems Medical Problems: (1) Atrial fibrillation with RVR Status: Acute (2) CAP (community acquired pneumonia) Status: Acute (3) GERD (gastroesophageal reflux disease) Status: Chronic (4) HLD (hyperlipidemia) Status: Chronic (5) HTN (hypertension) Status: Chronic (6) Insomnia Status: Chronic CONDITION ON DISCHARGE: Stable CODE STATUS: Code Status: Full JAIL: SNF STAY <30 DAYS: Yes HOSPICE: HOSPICE: No HOSPICE EVAL & TREAT: No LTAC: ADMIT TO LTAC: No POST DISCHARGE ORDERS: ACTIVITY ORDERS: Activity as tolerated DIET AFTER DISCHARGE: Cardiac CHECKS AFTER DISCHARGE: CHECKS AFTER DISCHARGE: Check blood press - daily, Check blood sugar, ac/hs FOLLOW-UP: PHYSICIAN FOLLOW-UP: cards upon snu dc re a fib rvr with low EF 25% TREATMENT/EQUIPMENT ORDERS: ADAPTIVE EQUIPMENT NEEDED: None Physical Therapy For: Evalulation/Treatment Occupational Therapy For: Evaluation/Treatment DISCHARGE MEDICATIONS: Home Meds Active Scripts Amoxicillin/Potassium Clav (AMOX TR-K CLV 500-125 MG TAB) 1 Each Tablet, 1 TAB PO BID for cap, #14 TAB Prov:ELIDA MAC MD 11/22/18 Guaifenesin/Dextromethorphan (GUAIFENESIN DM SYRUP) 5 Ml Syrup, 10 ML PO QID for cough for 10 Days, MISC Prov:ELIDA MAC MD 11/22/18 Metoprolol Tartrate (METOPROLOL TARTRATE) 25 Mg Tablet, 75 MG PO BID for a fib, #60 TAB Prov:ELIDA MAC MD 11/22/18 Albuterol Sulfate (Proair Hfa) 8.5 Gm Hfa.aer.ad, 2.5 MG NEB PRN Q4HRS PRN for SHORTNESS OF BREATH for 30 Days, INHALER Prov:ELIDA MAC MD 11/22/18 Magnesium Oxide (MAG-OXIDE) 400 Mg Tablet, 1 TAB PO BID, #60 TAB 0 Refills Prov:MIGUEL CRAIN MD 11/14/16 Reported Medications Digoxin (DIGOXIN) 125 Mcg Tablet, 1 TAB PO DAILY, #30 TAB 5 Refills 11/15/16 Docusate Sodium (COLACE) 100 Mg Capsule, 1 CAP PO BID PRN for CONSTIPATION, #30 CAP 11/11/16 Diphenhydramine Hcl (UNISOM) 50 Mg Capsule, 50 MG PO HS, CAP 11/11/16 Hydrochlorothiazide (HYDROCHLOROTHIAZIDE TABLET) 12.5 Mg Tablet, 2 TAB PO DAILY, #30 TAB 5 Refills 11/11/16 Apixaban (ELIQUIS) 2.5 Mg Tablet, 5 MG PO BID 03/11/16 Famotidine (FAMOTIDINE) 20 Mg Tablet, 20 MG PO HS, TAB 03/11/16 Metoprolol Tartrate (METOPROLOL TARTRATE) 50 Mg Tablet, 50 MG PO BID for FOR HYPERTENSION, #60 TAB 0 Refills 03/11/16 Tramadol Hcl (ULTRAM) 50 Mg Tablet, 1 TAB PO Q6HRS, #30 TAB 03/09/16 Levothyroxine Sodium (LEVOTHYROXINE SODIUM) 100 Mcg Tablet, 1 TAB PO DAILY, #30 TAB 5 Refills 03/09/16 Lisinopril (LISINOPRIL) 2.5 Mg Tablet, 2.5 MG PO DAILY for FOR HYPERTENSION, #30 TAB 0 Refills 12/31/13 Multivitamin (MULTI VITAMIN DAILY) 1 Each Tablet, 1 EACH PO 12/31/13 Sertraline Hcl (ZOLOFT) 100 Mg Tablet, 100 MG PO DAILY for ANTI-DEPRESSANT, TAB 0 Refills 12/31/13 Lovastatin (LOVASTATIN) 40 Mg Tablet, 40 MG PO HS, TAB 12/31/13 ELIDA MAC MD Nov 24, 2018 09:22
[2018-11-24] MEDS: AMOXICILLIN/K CLAV 500/125MG TABLET. PO SCH (09:25)
[2018-11-24] MEDS: DIGOXIN 125 MCG TABLET. PO SCH (09:25)
[2018-11-24] MEDS: hydroCHLOROthiazide 25 MG TABLET PO SCH (09:25)
[2018-11-24] MEDS: METOPROLOL TART IMMED RELEASE 25 MG TABLET. PO SCH (09:26)
[2018-11-24] MEDS: SERTRALINE 50 MG TABLET. PO SCH (09:26)
[2018-11-24] MEDS: LISINOPRIL 5 MG TABLET. PO SCH (09:27)
[2018-11-24] MEDS: MAGNESIUM OXIDE 400 MG TABLET PO SCH (09:27)
[2018-11-24] MEDS: MULTIVITAMIN with MINERAL TABLET. PO SCH (09:27)
[2018-11-24] MEDS: LACTOBACILLUS RHAMNOSUS GG 1 CAPSULE. PO SCH (09:27)
--- NOTE | 2018-11-24 09:54 | PDOC3 ---
Discharge Summary Visit Information Date of Admission: Nov 20, 2018 Date of Discharge: Nov 24, 2018 Admitting Diagnosis Comment: acute on chronic A fib RVR on eliquis severe cardiomyopathy, severely diminished ef 25% - new CAP, left with small left pl effusion [place] resident FULL CODE HTN, GERD, lipids, insomnia - chronic stable GEn weakness - SNU candidate Final Diagnosis Problems Medical Problems: (1) Atrial fibrillation with RVR Status: Acute (2) CAP (community acquired pneumonia) Status: Acute (3) GERD (gastroesophageal reflux disease) Status: Chronic (4) HLD (hyperlipidemia) Status: Chronic (5) HTN (hypertension) Status: Chronic (6) Insomnia Status: Chronic Brief Hospital Course Allergies Allergies Coded Allergies Type Severity Reaction Last Updated Verified No Known Drug Allergies 12/31/13 No Vital Signs Vital Signs Date Time Temp Pulse Resp B/P (MAP) Pulse Ox O2 Delivery O2 Flow Rate FiO2 11/24/18 09:28 62 143/87 11/24/18 07:00 97.5 16 93 Nasal Cannula 2.0 97.5 Brief Hospital Course Ms. Gardner is a 87 old white female, [place] resident came in for afib RVR, got that under control, incidental pneumonia/bronchitis, TREated now on PO, NEeds SNU so now [facility] vs [facility] COmamnaged with cards EF low 25% - cardiac med started Advised ff up cards upon snu dc, re cardiomyopathy for rpt echo few mos down the line She tends to be very forgetful, i always update her and she says she does not know what's going on Discharge Information Condition at Discharge: Improved, Stable Disposition/Orders: Other (snu) Scheduled Amoxicillin/Potassium Clav (Amox Tr-K Clv 500-125 Mg Tab) 1 Each Tablet, 1 TAB PO BID for cap, #14 Prescribed by: ELIDA MAC on 11/22/18 0907 Apixaban (Eliquis) 2.5 Mg Tablet, 5 MG PO BID, (Reported) Entered as Reported by: ZEYNEP MRAIE on 03/11/16 1426 Last Action: Continued on 11/20/18 151 by ELIDA MAC Digoxin (Digoxin) 125 Mcg Tablet, 1 TAB PO DAILY, #30 Ref 5 (Reported) Entered as Reported by: TATO POWELL on 11/15/16 1520 Last Action: Continued on 11/20/18 1517 by ELIDA MAC Diphenhydramine Hcl (Unisom) 50 Mg Capsule, 50 MG PO HS, (Reported) Entered as Reported by: Loreto Lubin on 11/11/162208 Last Action: Converted on 11/20/181517 by ELIDA MAC Famotidine (Famotidine) 20 Mg Tablet, 20 MG PO HS, (Reported) Entered as Reported by: ZEYNEP MARIE on 03/11/16 1411 Last Action: Continued on 11/20/181517 by ELIDA MAC Guaifenesin/Dextromethorphan (Guaifenesin Dm Syrup) 5 Ml Syrup, 10 ML PO QID for cough for 10 Days Prescribed by: ELIDA MCA on 11/22/18 09 Hydrochlorothiazide (Hydrochlorothiazide Tablet) 12.5 Mg Tablet, 2 TAB PO DAILY, #30 Ref 5 (Reported) Entered as Reported by: Loreto Lubin on 11/11/162208 Last Action: Converted on 11/20/181517 by ELIDA MAC Levothyroxine Sodium (Levothyroxine Sodium) 100 Mcg Tablet, 1 TAB PO DAILY, #30 Ref 5 (Reported) Entered as Reported by: DORCAS MASTERS APRN on 03/09/16 1140 Last Action: Continued on 11/20/181517 by ELIDA MAC Lisinopril (Lisinopril) 2.5 Mg Tablet, 2.5 MG PO DAILY for FOR HYPERTENSION, #30 Ref 0 (Reported) Entered as Reported by: NOAH MARLEY on 12/31/13915 Last Action: Converted on 11/20/181517 by ELIDA MAC Lovastatin (Lovastatin) 40 Mg Tablet, 40 MG PO HS, (Reported) Entered as Reported by: NOAH MARLEY on 12/31/13915 Last Action: Converted on 11/20/181517 by ELIDA MAC Magnesium Oxide (Mag-Oxide) 400 Mg Tablet, 1 TAB PO BID, #60 Ref 0 Prescribed by: MIGUEL CRAIN MD on 11/14/16 1509 Last Action: Continued on 11/20/181517 by ELIDA MAC Metoprolol Tartrate (Metoprolol Tartrate) 50 Mg Tablet, 50 MG PO BID for FOR HYPERTENSION, #60 Ref 0 (Reported) Entered as Reported by: ZEYNEP MARIE on 03/11/16 1410 Last Action: Continued on 11/20/181517 by ELIDA MAC Metoprolol Tartrate (Metoprolol Tartrate) 25 Mg Tablet, 75 MG PO BID for a fib, #60 Prescribed by: ELIDA MAC on 11/22/18 0907 Sertraline Hcl (Zoloft) 100 Mg Tablet, 100 MG PO DAILY for ANTI-DEPRESSANT, Ref 0 (Reported) Entered as Reported by: NOAH MARLEY on 12/31/1316 Last Action: Converted on 11/20/181517 by ELIDA MAC Tramadol Hcl (Ultram) 50 Mg Tablet, 1 TAB PO Q6HRS, #30 (Reported) Entered as Reported by: DORCAS MASTERS APRN on 03/09/16 1140 Last Action: Continued on 11/20/181517 by ELIDA MAC Scheduled PRN Albuterol Sulfate (Proair Hfa) 8.5 Gm Hfa.aer.ad, 2.5 MG NEB PRN Q4HRS PRN for SHORTNESS OF BREATH for 30 Days Prescribed by: ELIDA MAC on 11/22/18 0907 Docusate Sodium (Colace) 100 Mg Capsule, 1 CAP PO BID PRN for CONSTIPATION, #30 (Reported) Entered as Reported by: Loreto Lubin on 11/11/169 Last Action: Continued on 11/20/181517 by ELIDA MAC Miscellaneous Medications Multivitamin (Multi Vitamin Daily) 1 Each Tablet, 1 EACH PO, (Reported) Entered as Reported by: NOAH MARLEY on 12/31/1316 Last Action: Converted on 11/20/181517 by ELIDA MENDOZA MD Nov 24, 2018 09:54
[2018-11-24 11:00] VITALS: BP 135/59
--- NOTE | 2018-11-24 15:10 | NUR ---
Pt transferred via transport [facility] to [facility]. Her son and daughter in law are present. Report given to [facility] staff and after-hours social service worker. IV site discontinued without difficulty. Information faxed to the Resort and hard copy sent with transport personnel.
== END 2018-11-24 14:50 | DRG 308 ==
LOC: ER 13:19 → 2 NORTH 15:00
PROVIDERS: ADMIT Internal Medicine; ATTEND Internal Medicine
PROC: 4B02XSZ Measurement of Cardiac Pacemaker, External Approach (ICD-10-PCS; principal; 2018-11-21)
DX: I48.0 Paroxysmal atrial fibrillation (principal); J96.00 Acute respiratory failure, unspecified whether with hypoxia or hypercapnia; J18.9 Pneumonia, unspecified organism; I50.42 Chronic combined systolic (congestive) and diastolic (congestive) heart failure; R65.10 Systemic inflammatory response syndrome (SIRS) of non-infectious origin without acute organ dysfunction; I42.9 Cardiomyopathy, unspecified; K21.9 Gastro-esophageal reflux disease without esophagitis; E03.9 Hypothyroidism, unspecified; I11.0 Hypertensive heart disease with heart failure; I48.2 Chronic atrial fibrillation; F41.9 Anxiety disorder, unspecified; F32.9 Major depressive disorder, single episode, unspecified; M19.90 Unspecified osteoarthritis, unspecified site; G47.00 Insomnia, unspecified; I49.5 Sick sinus syndrome; E78.5 Hyperlipidemia, unspecified; I73.9 Peripheral vascular disease, unspecified; J40 Bronchitis, not specified as acute or chronic; Z95.0 Presence of cardiac pacemaker; Z79.01 Long term (current) use of anticoagulants; Z79.899 Other long term (current) drug therapy; Z87.11 Personal history of peptic ulcer disease
CPT/HCPCS: 36415; 71045; 78452; 80053; 80162; 81001; 82310; 83735; 83880; 84443; 84484; 85025; 85610; 85730; 87086; 87493; 93005; 93017; 93306; 96374; 96375; A9500; J0696; J1160; J2405; J2785; J3490; J7040; Q0144; Q0163; 97530; 99285-25; G0378

== ENCOUNTER 2019-01-08 10:40 | Emergency (ER) | payer MEDICARE ==
[~2019-01-08] VITALS: Ht 162.6 cm; Wt 45.4 kg
[~2019-01-08 10:40] MED LIST changes: +ALBU2.5V8 NEB; +AMOX1TAB10 PO; +GUAI5SYR PO
--- NOTE | 2019-01-08 12:16 | PHYS DOC ---
Past Medical History Past Medical History: A-Fib, Anxiety, Depression, GERD, High Cholesterol, Hypertension, Hypothyroid, Renal Disease, Other Additional Past Medical Histor: CKD STAGE 3 Past Surgical History: Pacemaker, Other Additional Past Surgical Histo: A- PACED, CATERACT, LEFT BREAST BIOPSY Alcohol Use: None Drug Use: None Adult General Chief Complaint Chief Complaint: ANXIETY/PANIC ATTACK HPI HPI Patient is a 88 year old female with history of anxiety resident of assisted living home who presents with complaining of shortness of breath and dizziness. Patient complaining of positional dizziness since she woke up this morning with headache and nausea and had sudden onset of shortness of breath with palpitation and lightheadedness. EMS reported that patient was anxious and didn't want to wait to be seen by her assisting ankle physician. Patient stated she felt better at arrival to ER and denies dizziness, shortness of breath, chest pain, palpitation. Patient states she had the same problem with anxiety previously. Review of Systems Review of Systems Constitutional: Denies fever or chills [] Eyes: Denies change in visual acuity, redness, or eye pain [] HENT: Denies nasal congestion or sore throat [] Respiratory: Denies cough, reports shortness of breath [] Cardiovascular: No additional information not addressed in HPI [] GI: Denies abdominal pain, vomiting, bloody stools or diarrhea [] : Denies dysuria or hematuria [] Musculoskeletal: Denies back pain or joint pain [] Integument: Denies rash or skin lesions [] Neurologic: Reports dizziness and headache, denies focal weakness or sensory changes [] Endocrine: Denies polyuria or polydipsia [] All other systems were reviewed and found to be within normal limits, except as documented in this note. Allergies Allergies Allergies Coded Allergies Type Severity Reaction Last Updated Verified No Known Drug Allergies 12/31/13 No Physical Exam Physical Exam Constitutional: Well developed, well nourished, mild distress, non-toxic appearance. [] HENT: Normocephalic, atraumatic. Eyes: PERRLA, EOMI, conjunctiva normal, no discharge. [] Neck: Normal range of motion, no tenderness, supple, no stridor. [] Cardiovascular: Irregularly irregular rhythm, no murmur [] Lungs & Thorax: Bilateral breath sounds clear to auscultation [] Abdomen: Bowel sounds normal, soft, no tenderness, no masses, no pulsatile masses. [] Skin: Warm, dry, no erythema, no rash. [] Back: No tenderness, no CVA tenderness. [] Extremities: No tenderness, no cyanosis, no clubbing, ROM intact, no edema. [] Neurologic: Alert and oriented X 3, no focal deficits noted. [] Psychologic: Affect anxious, judgement normal, mood normal. [] Current Patient Data Vital Signs Vital Signs Date Time Temp Pulse Resp B/P (MAP) Pulse Ox O2 Delivery O2 Flow Rate FiO2 01/08/19 12:30 68 16 152/85 (107) 95 Room Air 01/08/19 10:53 98.0 98.0 EKG EKG EKG interpreted by me. EKG at 1117 showed atrial fibrillation at rate of 60 daily, PVCs, left holbrook axis, poor R wave practicing in anteroseptal leads, no acute ST-T wave elevation Radiology/Procedures Radiology/Procedures [] Course & Med Decision Making Course & Med Decision Making Evaluation of patient in ER showed 88-year-old female patient with complaining of dizziness and shortness of breath with history of anxiety attack that resolved at arrival to ER. Patient felt better and didn't want to have test in ER. Patient was discharged from her assisted-living, and was advised to follow- up with her primary care physician and continue current medication. Dragon Disclaimer Dragon Disclaimer This electronic medical record was generated, in whole or in part, using a voice recognition dictation system. Departure Departure Impression: Primary Impression: Panic attack Additional Impression: Chronic atrial fibrillation Disposition: 01 HOME, SELF-CARE (assisting living home at 1213) Condition: IMPROVED Referrals: CHANDA PERKINS MD (PCP) Patient Instructions: Anxiety and Panic Attacks, Atrial Fibrillation Additional Instructions: Continue current medication Follow-up with your primary care physician in 2-3 days Return to ER if not getting better Problem Qualifiers JOHN PAUL GILES MD Jan 08, 2019 12:16
[2019-01-08 12:30] VITALS: BP 152/85
--- NOTE | 2019-01-08 15:20 | EKG ---
[facility] [address] [place] [address] Test Date: 2019-01-08 Test Time: 11:17:24 Pat Name: PRIYANKA ELISE Department: Room: Gender: F Substitute Nurse: : [id number] Requested By: JOHN PAUL GILES Order Number: [id number] Reading MD: Measurements Intervals [place] Rate: 63 P: WI: QRS: -4 QRSD: 86 T: -43 QT: 358 QTc: 369 Interpretive Statements IRREGULAR RHYTHM, NO P-WAVE FOUND VENTRICULAR PREMATURE COMPLEX(ES) LEFTWARD AXIS QRS(T) CONTOUR ABNORMALITY CONSIDER ANTEROSEPTAL MYOCARDIAL DAMAGE ST & T ABNORMALITY, CONSIDER INFERIOR ISCHEMIA OR LEFT VENTRICULAR STRAIN ABNORMAL ECG RI6.01 No previous ECG available for comparison
== END 2019-01-08 12:44 | disposition home or self-care (01) ==
LOC: ER 10:40
DX: F41.0 Panic disorder [episodic paroxysmal anxiety] (principal); F32.9 Major depressive disorder, single episode, unspecified; F41.9 Anxiety disorder, unspecified; K21.9 Gastro-esophageal reflux disease without esophagitis; E03.9 Hypothyroidism, unspecified; E78.00 Pure hypercholesterolemia, unspecified; I12.9 Hypertensive chronic kidney disease with stage 1 through stage 4 chronic kidney disease, or unspecified chronic kidney disease; N18.3 Chronic kidney disease, stage 3 (moderate); Z95.0 Presence of cardiac pacemaker
CPT/HCPCS: 93005; 99284

== ENCOUNTER → 2019-03-04 | Outpatient (CLI) | payer MEDICARE ==
[2019-02-20 10:08] VITALS: BP 177/68
[~2019-03-04] MED LIST changes: +DIPH25CA58 PO; +GUAI100G2 PO; +LIDO1ADH44 TP
--- NOTE | 2019-03-04 16:24 | RAD ---
EXAM: Right hip, 2 views. HISTORY: Pain with weightbearing. COMPARISON: 02/16/2019 FINDINGS: 2 views of the right hip are obtained. There is internal fixation of a proximal right femoral fracture in anatomic alignment. There is hip joint space narrowing with degenerative subchondral sclerosis and marginal spurring. There are lateral skin bill due to recent surgery. IMPRESSION: 1. Internal fixation of a proximal right femoral fracture in anatomic alignment. 2. Mild right hip osteoarthritis. Electronically signed by: Mariana Colon MD (03/04/2019 4:21 PM) [facility]
== END | disposition home or self-care (01) ==
PROVIDERS: ATTEND Internal Medicine
DX: S72.001A Fracture of unspecified part of neck of right femur, initial encounter for closed fracture (principal); M16.11 Unilateral primary osteoarthritis, right hip; X58.XXXA Exposure to other specified factors, initial encounter; Y93.89 Activity, other specified; Y92.89 Other specified places as the place of occurrence of the external cause; Y99.8 Other external cause status
CPT/HCPCS: 73502

== ENCOUNTER 2020-10-04 10:18 | Observation (INO) | payer OTHER, MEDICAID ==
[~2020-10-04] VITALS: Ht 162.6 cm; Wt 42.4 kg
[~2020-10-04 10:18] MED LIST changes: -DIGO125T PO; +DIGO125T3 PO; -DRON400T PO; +DRON400T6 PO; -MECL12.52 PO; +MECL12.582 PO
[2020-10-04 10:55] LABS: BASO # 0.1 x10^3/uL (0.0-0.2); BASO % 1 % (0-3); EOS # 0.2 x10^3/uL (0.0-0.7); EOS % 2 % (0-3); HEMATOCRIT 45.2 % (36.0-47.0); HEMOGLOBIN 14.7 g/dL (12.0-15.5); LYMPH # 2.4 x10^3/uL (1.0-4.8); LYMPH % 20 % (24-48); MEAN CORPUSCULAR HEMOGLOBIN 31 pg (25-35); MEAN CORPUSCULAR HGB CONC 32 g/dL (31-37); MEAN CORPUSCULAR VOLUME 96 fL (79-100); MONO # 0.9 x10^3/uL (0.0-1.1); MONO % 7 % (0-9); NEUT # 8.4 x10^3/uL (1.8-7.7); NEUT % 70 % (31-73); PLATELET COUNT 260 x10^3/uL (140-400); RED BLOOD COUNT 4.72 x10^6/uL (3.50-5.40); RED CELL DISTRIBUTION WIDTH 15.6 % (11.5-14.5)
--- NOTE | 2020-10-04 10:57 | PHYS DOC ---
Past Medical History Past Medical History: A-Fib, Anxiety, Depression, GERD, High Cholesterol, Hypertension, Hypothyroid, Renal Disease, Other Additional Past Medical Histor: CKD STAGE 3 Past Surgical History: Pacemaker, Other Additional Past Surgical Histo: A- PACED, CATERACT, LEFT BREAST BIOPSY Smoking Status: Former Smoker Alcohol Use: None Drug Use: None General Adult HPI: HPI: Patient is a very frail 89 year old female who presents with from [facility] living with 3 days of failure to thrive and altered mentation. Patient is usually alert and oriented x4 and she is only alert and oriented x1. Patient will shake her head or say yes or no to me and then close her eyes again upon asking questions. I pushed on the patient's abdomen and she put her hand over mine and said yes to pain. I asked her if her chest hurt she also said yes. Patient is laying very quietly comfortably in the bed. Patient is atrially paced. She has a history of CKD stage III, depression, anxiety, A. fib, GERD, former smoker, high cholesterol, hypertension, hypothyroidism, peripheral vascular disease, unsteadiness on her feet, renal artery stenosis. Patient is a DNR. However the nursing facility did not send the DNR with the patient but did list that she is a DNR on her paperwork that was sent with her. She has received both of her [employer] vaccinations. Patient is unable to tell me exactly where her pain is or right her pain. Review of Systems: Review of Systems: Constitutional: Denies fever or chills. [] Eyes: Denies change in visual acuity. [] HENT: Denies nasal congestion or sore throat. [] Respiratory: Denies cough or shortness of breath. [] Cardiovascular: + chest pain or Denies edema. [] GI: + abdominal pain, denies nausea, vomiting, bloody stools or diarrhea. [] : Denies dysuria. [] Musculoskeletal: Denies back pain or joint pain. [] Integument: Denies rash. [] Neurologic: Denies headache, focal weakness or sensory changes. AMS [] Endocrine: Denies polyuria or polydipsia. [] Lymphatic: Denies swollen glands. [] Psychiatric: Denies depression or anxiety. [] Heart Score: C/O Chest Pain: Yes HEART Score for Chest Pain: HEART Score for Chest Pain Response (Comments) Value History Moderately Suspicious 1 ECG Nonspecific Repolarizatio 1 Age > 65 2 Risk Factors 1 or 2 Risk Factors 1 Troponin < Normal Limit 0 Total 5 Risk Factors: Risk Factors: DM, Current or recent (<one month) smoker, HTN, HLP, family history of CAD, obesity. Risk Scores: Score 0 - 3: 2.5% MACE over next 6 weeks - Discharge Home Score 4 - 6: 20.3% MACE over next 6 weeks - Admit for Clinical Observation Score 7 - 10: 72.7% MACE over next 6 weeks - Early Invasive Strategies Allergies: Allergies: Allergies Coded Allergies Type Severity Reaction Last Updated Verified No Known Drug Allergies 12/31/13 No Physical Exam: PE: Constitutional: Well developed, Frail, no acute distress, non-toxic appearance. [] HENT: Normocephalic, atraumatic, bilateral external ears normal, oropharynx moist, no oral exudates, nose normal. [] Eyes: PERRLA, EOMI, conjunctiva normal, no discharge. [] Neck: Normal range of motion, no tenderness, supple, no stridor. [] Cardiovascular:Heart rate Irregular rhythm, no murmur [] Lungs & Thorax: Bilateral upper breath sounds clear and lower diminished to auscultation [] Abdomen: Bowel sounds normal, soft, generalized tenderness, no masses, no pulsatile masses. [] Skin: Warm, dry, no erythema, no rash. [] Back: No tenderness, no CVA tenderness. [] Extremities: No tenderness, no cyanosis, no clubbing, ROM intact, no edema. [] Neurologic: Alert and oriented X 1, normal motor function, normal sensory function, no focal deficits noted. [] Psychologic: Affect normal, judgement normal, mood normal. [] EKG: EK IRREGULAR RHYTHM, NO STEMI, ST ABNORMALITY Radiology/Procedures: Radiology/Procedures: [] Impression: [facility] [address] [place] [address] IMAGING REPORT Signed PATIENT: PRIYANKA ELISE ACCOUNT: [id number] : 1930 LOCATION: ER AGE: 89 SEX: F EXAM STATUS: PRE ER ORD. PHYSICIAN: HERBIE JOHNSON APRN REASON: AMS PROCEDURE: PORTABLE CHEST 1V Exam Date: 10/04/2020 10:42 AM XR CHEST 1V Indication: Reason: AMS / Spl. Instructions: / History: . Comparison: August 16, 2018 FINDINGS/ IMPRESSION: The aorta is calcified. Cardiac pacemaker is in place. There are coarse reticular markings in the upper lobes bilaterally suggesting underlying fibrosis/scarring. Patchy infiltrates are seen in the left upper lobe suspicious for superimposed pneumonia. No appreciable pleural effusion or pneumothorax. The cardiac silhouette and pulmonary vasculature are within normal limits. Electronically signed by: Champ Greco MD (10/04/2020 11:05 AM) [id number] DICTATED and SIGNED BY: CHAMP GRECO MD DATE: 10/04/20 [id number] [facility] [address] [place] [address] IMAGING REPORT Signed PATIENT: PRIYANKA ELISE ACCOUNT: [id number] : 1930 LOCATION: ER AGE: 89 SEX: F EXAM STATUS: REG ER ORD. PHYSICIAN: HERBIE OJHNSON APRN REASON: ABD PAIN, AMS PROCEDURE: CT ABDOMEN PELVIS WO CONTRAST PQRS Compliance Statement: One or more of the following individualized dose reduction techniques were utilized for this examination: 1. Automated exposure control 2. Adjustment of the mA and/or kV according to patient size 3. Use of iterative reconstruction technique Exam performed: CT scan of the abdomen and pelvis without contrast. CT head without contrast Clinical Indication: Reason: AMS / Spl. Instructions: / History: Abdominal pain Date of Service: 10/04/2020 11:14 AM. Comparison: CT head without contrast from 02/16/2019 Technique: Contiguous helical acquisitions are obtained from the foramen magnum to the vertex and through the abdomen and pelvis without IV contrast. Sagittal and coronal reformatted images are obtained and reviewed. CT head: Prominence of cortical sulci and ventricular system is noted consistent with age-related atrophy. There are areas of low-attenuation in both periventricular and subcortical deep white matter persisting small vessel ischemic changes. There is no extra axial fluid collection, intraparenchymal hemorrhage, mass or acute infarct. Visualized orbits, paranasal sinuses and the mastoid air cells are clear. IMPRESSION: No acute intracranial process detected. Age-related atrophy and bilateral periventricular small vessel ischemic changes. End impression. CT abdomen and pelvis findings: Minimal linear opacities are seen in the right lung base. There are also mild reticulonodular opacities both lung bases. The visualized heart is normal. Diffuse atheromatous thoracic aortic calcification. Unopacified liver, spleen, gallbladder and pancreas appear normal. Both adrenal glands and bilateral kidneys are normal in size. There is no hydronephrosis or nephrolithiasis. Diffuse atheromatous aortic calcification. Suspected gallstone . Small and large bowel loops are nondilated and unremarkable. There is extensive scattered stool in the colon. The uterus is anteverted. No adnexal masses seen. There are spondylotic changes and multilevel disc degenerative changes involving the lumbar spine. There is loss of height of T12 vertebral body. Impression: No acute intra-abdominal or pelvic process detected. Extensive scattered stool throughout the colon. Correlate clinically for constipation. Loss of height of T12 vertebral body. Acuity unknown. Correlate with area of fo tiffany pain and if indicated evaluation with MRI of the thoracolumbar spine may be obtained to rule out possibility of acute compression fracture. Electronically signed by: Darwin Mcmanus MD (10/04/2020 11:43 AM) [facility] DICTATED and SIGNED BY: DARWIN MCMANUS MD DATE: 10/04/20 [id number] 0 Course & Med Decision Making: Course & Med Decision Making Pertinent Labs and Imaging studies reviewed. (See chart for details) See HPI. Very frail. Alert and oriented x1. Abdomen is soft but as I stated previously she will put her hand up when I press on her abdomen. Lungs are clear in upper lobes but diminished in lower lobes. No extremity edema. Skin is pink warm and dry. PERRLA. Per her jail [facility] she does not appear to be on any kind of blood thinner. NIH cannot be done due to AMS. Patient is given Zosyn and Solu-Medrol in ED. She is going to be admitted for pneumonia and altered mental status. [] Wesley Disclaimer: Wesley Disclaimer: This electronic medical record was generated, in whole or in part, using a voice recognition dictation system. Departure Departure Impression: Primary Impression: CAP (community acquired pneumonia) Qualified Codes: J18.9 - Pneumonia, unspecified organism Additional Impression: AMS (altered mental status) Qualified Codes: R41.82 - Altered mental status, unspecified Disposition: 09 ADMITTED INPATIENT Admitting Physician: WILNER Condition: STABLE Referrals: CHANDA PERKINS MD (PCP) HERBIE JOHNSON FEATHER CURLING MACHINE OPERATOR Oct 04, 2020 10:57
[2020-10-04 11:06] LABS: CALCIUM 9.7 mg/dL (8.5-10.1); CREATININE 1.2 mg/dL (0.6-1.0); GFR 42.4
--- NOTE | 2020-10-04 11:08 | RAD ---
Exam Date: 10/04/2020 10:42 AM XR CHEST 1V Indication: Reason: AMS / Spl. Instructions: / History: . Comparison: August 16, 2018 FINDINGS/ IMPRESSION: The aorta is calcified. Cardiac pacemaker is in place. There are coarse reticular markings in the upp er lobes bilaterally suggesting underlying fibrosis/scarring. Patchy infiltrates are seen in the left upper lobe suspicious for superimposed pneumonia. No appreciable pleural effusion or pneumothorax. The cardiac silhouette and pulmonary vasculature are within normal limits. Electronically signed by: Mamadou Greco MD (10/04/2020 11:05 AM) [id number]
[2020-10-04 11:11] LABS: BILIRUBIN,URINE NEGATIVE (NEG); CLARITY,URINE CLEAR; COLOR,URINE YELLOW; NITRITE,URINE NEGATIVE (NEG); PROTEIN,URINE NEGATIVE (NEG-TRACE); UROBILINOGEN,URINE 0.2 mg/dL (0.2 mg/dL)
[2020-10-04 11:12] LABS: ALBUMIN/GLOBULIN RATIO 0.5 (1.0-1.7); TOTAL BILIRUBIN 0.7 mg/dL (0.2-1.0); TOTAL PROTEIN 8.8 g/dL (6.4-8.2)
[2020-10-04] MEDS ORDERED: PIPERACILLIN/TAZOBACTAM 3.375 GM in IV NORMAL SALINE 50ML 50 ML IV ONE (11:15)
[2020-10-04] MEDS ORDERED: IV NORMAL SALINE 1000ML BAG 1,000 ML IV ONE (11:15)
[2020-10-04] MEDS ORDERED: PIPERACILLIN/TAZOBACTAM 2.25 GM in IV NORMAL SALINE 50ML 50 ML IV ONE (11:30)
[2020-10-04 11:31] LABS: BACTERIA,URINE 0 /HPF (0-FEW); WBC,URINE OCC /HPF (0-4)
--- NOTE | 2020-10-04 11:45 | RAD ---
PQRS Compliance Statement: One or more of the following individualized dose reduction techniques were utilized for this examinat ion: 1. Automated exposure control 2. Adjustment of the mA and/or kV according to patient size 3. Use of iterative reconstruction technique Exam performed: CT scan of the abdomen and pelvis without contrast. CT head without contrast Clinical Indication: Reason: AMS / Spl. Instructions: / History: Abdominal pain Date of Service: 10/04/2020 11:14 AM. Comparison: CT head without contrast from 02/16/2019 Technique: Contiguous helical acquisitions are obtained from the foramen magnum to the vertex and thr ough the abdomen and pelvis without IV contrast. Sagittal and coronal reformatted images are obtained and reviewed. CT head: Prominence of cortical sulci and ventricular system is noted consistent with age-related atrophy. The re are areas of low-attenuation in both periventricular and subcortical deep white matter persisting small vessel ischemic changes. There is no extra axial fluid collection, intraparenchymal hemorrhage, mass or acute infarct. Visualized orbits, paranasal sinuses and the mastoid air cells are clear. IMPRESSION: No acute intracranial process detected. Age-related atrophy and bilateral periventricular small vessel ischemic changes. End impression. CT abdomen and pelvis findings: Minimal linear opacities are seen in the right lung base. There are also mild reticulonodular opaciti es both lung bases. The visualized heart is normal. Diffuse atheromatous thoracic aortic calcificatio n. Unopacified liver, spleen, gallbladder and pancreas appear normal. Both adrenal glands and bilateral kidneys are normal in size. There is no hydronephrosis or nephrolithiasis. Diffuse atheromatous aorti c calcification. Suspected gallstone . Small and large bowel loops are nondilated and unremarkable. T here is extensive scattered stool in the colon. The uterus is anteverted. No adnexal masses seen. The re are spondylotic changes and multilevel disc degenerative changes involving the lumbar spine. There is loss of height of T12 vertebral body. Impression: No acute intra-abdominal or pelvic process detected. Extensive scattered stool throughout the colon. Correlate clinically for constipation. Loss of height of T12 vertebral body. Acuity unknown. Correlate with area of focal pain and if indica francia evaluation with MRI of the thoracolumbar spine may be obtained to rule out possibility of acute c ompression fracture. Electronically signed by: Mary Beth Mcmanus MD (10/04/2020 11:43 AM) [facility]ern[facility]
[2020-10-04] MEDS ORDERED: methylPREDNISolone SOD SUCC PF 40 MG/ML VIAL. IV ONE (12:00)
[2020-10-04 12:09] LABS: PROTHROMBIN TIME PATIENT 15.9 SEC (11.7-14.0)
--- NOTE | 2020-10-04 12:53 | EKG ---
[facility] [address] [place] [address] Test Date: 2020-10-04 Test Time: 10:21:59 Pat Name: PRIYANKA ELISE Department: Room: Gender: F Dialer: : 1930 Requested By: HERBIE JOHNSON Order Number: [id number] Reading MD: Measurements Intervals [place] Rate: 78 P: NV: QRS: 4 QRSD: 80 T: 255 QT: 352 QTc: 405 Interpretive Statements IRREGULAR RHYTHM, NO P-WAVE FOUND ST ABNORMALITY, POSSIBLE INFEROLATERAL SUBENDOCARDIAL INJURY ABNORMAL ECG RI6.02 No previous ECG available for comparison
[2020-10-04] MEDS ORDERED: PIP/TAZO PER PHARMACY MC PRN (13:00)
[2020-10-04] MEDS ORDERED: HYDROcodone/APAP 5/325MG 1 TAB TABLET PO PRN (13:15)
[2020-10-04] MEDS ORDERED: MAG HYDROX/ALUMINUM HYD/SIMETH 30 ML ORAL.SUSP PO PRN (13:15)
[2020-10-04] MEDS ORDERED: ACETAMINOPHEN 325 MG TABLET. PO PRN (13:15)
[2020-10-04] MEDS ORDERED: DOCUSATE SODIUM 100 MG CAPSULE. PO PRN (13:15)
[2020-10-04] MEDS ORDERED: ONDANSETRON PF 4 MG/2 ML VIAL. IVP PRN (13:15)
[2020-10-04] MEDS ORDERED: CALCIUM CARBONATE 500 MG TAB.CHEW PO PRN (13:15)
[2020-10-04] MEDS ORDERED: MORPHINE SULFATE 2 MG/ML INJ. IV PRN (13:15)
--- NOTE | 2020-10-04 13:15 | PDOC1 ---
History and Physical Date of Admission Date of Admission DATE: 10/04/20 TIME: 12:58 Identification/Chief Complaint Chief Complaint AMS, failure to thrive History of Present Illness History of Present Illness Patient is 89-year-old female past medical history CKD, A. fib, anxiety/depression, HTN, HLD, hypothyroidism, PVD, who presents to the ED from [facility], [place] living essentially due to altered mental status and failure to thrive over the past 3 days. Reportedly patient is normally A&O x3, but apparently this did not been the case recently. In the ED she reportedly had some complaints of epigastric/chest pain. Chest x-ray on admission showed calcified aorta, pacemaker in place, and patchy infiltrate to the left upper lobe. CT head and CT abdomen/pelvis showed no acute process. Labs on admission showed WBC 12.0, BUN 29, creatinine 1.2, BNP 10,934, albumin 3.0, lactic acid 1.5, troponin <0.017. She received Zosyn and IV fluids in the ED. She has documentation that she has been COVID-19 vaccinated as well as documentation of DNR CODE STATUS. She will be admitted for further medical management. Past Medical History Cardiovascular: AFIB, CHF, HTN, Hyperlipidemia, Other Pulmonary: No pertinent hx CENTRAL NERVOUS SYSTEM: Other GI: GERD, Peptic Ulcer disease Heme/Onc: No pertinent hx Hepatobiliary: No pertinent hx Psych: Anxiety, Depression Musculoskeletal: Osteoarthritis Rheumatologic: No pertinent hx Infectious disease: No pertinent hx Renal/: No pertinent hx Endocrine: Hypothyroidism Past Surgical History Past Surgical History: Pacemaker, Other Family History Family History: Cancer, Hypertension Social History Smoke: No ALCOHOL: none Drugs: None Current Problem List Problem List Problems Medical Problems: (1) AMS (altered mental status) Status: Acute (2) CAP (community acquired pneumonia) Status: Acute Current Medications Current Medications Current Medications Sodium Chloride 1,000 ml @ 1,000 mls/hr 1X ONCE IV Last administered on 10/04/20at 11:15; Start 10/04/20 at 11:15; Stop 10/04/20 at 12:14; Status DC Piperacillin Sod/ Tazobactam Sod 3.375 gm/Sodium Chloride 50 ml @ 100 mls/hr 1X ONCE IV ; Start 10/04/20 at 11:15; Stop 10/04/20 at 11:44; Status UNV Piperacillin Sod/ Tazobactam Sod 2.25 gm/Sodium Chloride 50 ml @ 100 mls/hr 1X ONCE IV Last administered on 10/04/20at 11:38; Start 10/04/20 at 11:30; Stop 10/04/20 at 11:59; Status DC Methylprednisolone Sodium Succinate (SOLU-Medrol 40MG VIAL) 40 mg 1X ONCE IV ; Start 10/04/20 at 12:00; Stop 10/04/20 at 12:01; Status DC Active Scripts Active Metoprolol Tartrate 25 Mg Tablet 75 Mg PO BID Mag-Oxide (Magnesium Oxide) 400 Mg Tablet 1 Tab PO BID Reported Benadryl (Diphenhydramine Hcl) 25 Mg Capsule 1 Cap PO QHS 30 Days Mucinex (Guaifenesin) 100 Mg Gran.pack 1 Packet PO BID 5 Days Aspercreme (Lidocaine) 1 Each Adh..patch 1 Patch TP DAILY 30 Days Digoxin 125 Mcg Tablet 1 Tab PO DAILY Colace (Docusate Sodium) 100 Mg Capsule 1 Cap PO BID PRN Eliquis (Apixaban) 2.5 Mg Tablet 5 Mg PO BID Famotidine 20 Mg Tablet 20 Mg PO HS Ultram (Tramadol Hcl) 50 Mg Tablet 1 Tab PO Q6HRS Levothyroxine Sodium 100 Mcg Tablet 1 Tab PO DAILY Lisinopril 2.5 Mg Tablet 2.5 Mg PO DAILY Multi Vitamin Daily (Multivitamin) 1 Each Tablet 1 Each PO Zoloft (Sertraline Hcl) 100 Mg Tablet 100 Mg PO DAILY Lovastatin 40 Mg Tablet 40 Mg PO HS Allergies Allergies: Coded Allergies: No Known Drug Allergies (Unverified , 12/31/13) ROS Review of System Reviewed with patient but unable to obtain due to clinical condition Physical Exam Physical Exam General: Frail and cachectic appearing, Cooperative, No acute distress HEENT: PERRLA, EOMI Lungs: Diminished breath sounds, Normal air movement Heart: RRR, no murmurs Cardiovascular: S1, S2 Abdomen: Normal bowel sounds, Soft, No tenderness Extremities: No clubbing, No cyanosis Skin: No rashes, No significant lesion Neuro: Normal tone, Sensation intact Psych/Mental Status: She appears quite lethargic, responding minimally to questions Vitals Vitals Vital Signs Date Time Temp Pulse Resp B/P (MAP) Pulse Ox O2 Delivery O2 Flow Rate FiO2 10/04/20 11:39 97.7 70 16 162/74 (103) 100 Room Air 97.7 Labs Labs Laboratory Tests Test 10/04/20 10:45 10/04/20 11:02 10/04/20 11:53 White Blood Count 12.0 x10^3/uL (4.0-11.0) Red Blood Count 4.72 x10^6/uL (3.50-5.40) Hemoglobin 14.7 g/dL (12.0-15.5) Hematocrit 45.2 % (36.0-47.0) Mean Corpuscular Volume 96 fL (79-100) Mean Corpuscular Hemoglobin 31 pg (25-35) Mean Corpuscular Hemoglobin Concent 32 g/dL (31-37) Red Cell Distribution Width 15.6 % (11.5-14.5) Platelet Count 260 x10^3/uL (140-400) Neutrophils (%) (Auto) 70 % (31-73) Lymphocytes (%) (Auto) 20 % (24-48) Monocytes (%) (Auto) 7 % (0-9) Eosinophils (%) (Auto) 2 % (0-3) Basophils (%) (Auto) 1 % (0-3) Neutrophils # (Auto) 8.4 x10^3/uL (1.8-7.7) Lymphocytes # (Auto) 2.4 x10^3/uL (1.0-4.8) Monocytes # (Auto) 0.9 x10^3/uL (0.0-1.1) Eosinophils # (Auto) 0.2 x10^3/uL (0.0-0.7) Basophils # (Auto) 0.1 x10^3/uL (0.0-0.2) Sodium Level 137 mmol/L (136-145) Potassium Level 5.0 mmol/L (3.5-5.1) Chloride Level 103 mmol/L (98-107) Carbon Dioxide Level 23 mmol/L (21-32) Anion Gap 11 (6-14) Blood Urea Nitrogen 29 mg/dL (7-20) Creatinine 1.2 mg/dL (0.6-1.0) Estimated GFR (Cockcroft-Gault) 42.4 BUN/Creatinine Ratio 24 (6-20) Glucose Level 83 mg/dL (70-99) Lactic Acid Level 1.5 mmol/L (0.4-2.0) Calcium Level 9.7 mg/dL (8.5-10.1) Total Bilirubin 0.7 mg/dL (0.2-1.0) Aspartate Amino Transf (AST/SGOT) 32 U/L (15-37) Alanine Aminotransferase (ALT/SGPT) 18 U/L (14-59) Alkaline Phosphatase 50 U/L (46-116) Troponin I Quantitative < 0.017 ng/mL (0.000-0.055) LN-Rlj-D-Type Natriuretic Peptide 27322 pg/mL (0-449) Total Protein 8.8 g/dL (6.4-8.2) Albumin 3.0 g/dL (3.4-5.0) Albumin/Globulin Ratio 0.5 (1.0-1.7) Lipase 55 U/L (73-393) Urine Collection Type U cath Urine Color Yellow Urine Clarity Clear Urine pH 6.0 (<5.0-8.0) Urine Specific [place] 1.020 (1.000-1.030) Urine Protein Negative mg/dL (NEG-TRACE) Urine Glucose (UA) Negative mg/dL (NEG) Urine Ketones (Stick) Trace mg/dL (NEG) Urine Blood Negative (NEG) Urine Nitrite Negative (NEG) Urine Bilirubin Negative (NEG) Urine Urobilinogen Dipstick 0.2 mg/dL (0.2 mg/dL) Urine Leukocyte Esterase Negative (NEG) Urine RBC 1-2 /HPF (0-2) Urine WBC Occ /HPF (0-4) Urine Squamous Epithelial Cells Occ /LPF Urine Bacteria 0 /HPF (0-FEW) Prothrombin Time 15.9 SEC (11.7-14.0) Prothromb Time International Ratio 1.3 (0.8-1.1) Magnesium Level 2.1 mg/dL (1.8-2.4) Laboratory Tests Test 10/04/20 10:45 10/04/20 11:02 10/04/20 11:53 White Blood Count 12.0 x10^3/uL (4.0-11.0) Red Blood Count 4.72 x10^6/uL (3.50-5.40) Hemoglobin 14.7 g/dL (12.0-15.5) Hematocrit 45.2 % (36.0-47.0) Mean Corpuscular Volume 96 fL (79-100) Mean Corpuscular Hemoglobin 31 pg (25-35) Mean Corpuscular Hemoglobin Concent 32 g/dL (31-37) Red Cell Distribution Width 15.6 % (11.5-14.5) Platelet Count 260 x10^3/uL (140-400) Neutrophils (%) (Auto) 70 % (31-73) Lymphocytes (%) (Auto) 20 % (24-48) Monocytes (%) (Auto) 7 % (0-9) Eosinophils (%) (Auto) 2 % (0-3) Basophils (%) (Auto) 1 % (0-3) Neutrophils # (Auto) 8.4 x10^3/uL (1.8-7.7) Lymphocytes # (Auto) 2.4 x10^3/uL (1.0-4.8) Monocytes # (Auto) 0.9 x10^3/uL (0.0-1.1) Eosinophils # (Auto) 0.2 x10^3/uL (0.0-0.7) Basophils # (Auto) 0.1 x10^3/uL (0.0-0.2) Sodium Level 137 mmol/L (136-145) Potassium Level 5.0 mmol/L (3.5-5.1) Chloride Level 103 mmol/L (98-107) Carbon Dioxide Level 23 mmol/L (21-32) Anion Gap 11 (6-14) Blood Urea Nitrogen 29 mg/dL (7-20) Creatinine 1.2 mg/dL (0.6-1.0) Estimated GFR (Cockcroft-Gault) 42.4 BUN/Creatinine Ratio 24 (6-20) Glucose Level 83 mg/dL (70-99) Lactic Acid Level 1.5 mmol/L (0.4-2.0) Calcium Level 9.7 mg/dL (8.5-10.1) Total Bilirubin 0.7 mg/dL (0.2-1.0) Aspartate Amino Transf (AST/SGOT) 32 U/L (15-37) Alanine Aminotransferase (ALT/SGPT) 18 U/L (14-59) Alkaline Phosphatase 50 U/L (46-116) Troponin I Quantitative < 0.017 ng/mL (0.000-0.055) JE-Aep-G-Type Natriuretic Peptide 32656 pg/mL (0-449) Total Protein 8.8 g/dL (6.4-8.2) Albumin 3.0 g/dL (3.4-5.0) Albumin/Globulin Ratio 0.5 (1.0-1.7) Lipase 55 U/L (73-393) Urine Collection Type U cath Urine Color Yellow Urine Clarity Clear Urine pH 6.0 (<5.0-8.0) Urine Specific [place] 1.020 (1.000-1.030) Urine Protein Negative mg/dL (NEG-TRACE) Urine Glucose (UA) Negative mg/dL (NEG) Urine Ketones (Stick) Trace mg/dL (NEG) Urine Blood Negative (NEG) Urine Nitrite Negative (NEG) Urine Bilirubin Negative (NEG) Urine Urobilinogen Dipstick 0.2 mg/dL (0.2 mg/dL) Urine Leukocyte Esterase Negative (NEG) Urine RBC 1-2 /HPF (0-2) Urine WBC Occ /HPF (0-4) Urine Squamous Epithelial Cells Occ /LPF Urine Bacteria 0 /HPF (0-FEW) Prothrombin Time 15.9 SEC (11.7-14.0) Prothromb Time International Ratio 1.3 (0.8-1.1) Magnesium Level 2.1 mg/dL (1.8-2.4) Images Images PATIENT: PRIYANKA ELISE ACCOUNT: [id number] : 1930 LOCATION: ER AGE: 89 SEX: F EXAM STATUS: PRE ER ORD. PHYSICIAN: HERBIE JOHNSON APRN REASON: AMS PROCEDURE: PORTABLE CHEST 1V Exam Date: 10/04/2020 10:42 AM XR CHEST 1V Indication: Reason: AMS / Spl. Instructions: / History: . Comparison: August 16, 2018 FINDINGS/ IMPRESSION: The aorta is calcified. Cardiac pacemaker is in place. There are coarse reticular markings in the upper lobes bilaterally suggesting underlying fibrosis/scarring. Patchy infiltrates are seen in the left upper lobe suspicious for superimposed pneumonia. No appreciable pleural effusion or pneumothorax. The cardiac silhouette and pulmonary vasculature are within normal limits. Electronically signed by: Champ Greco MD (10/04/2020 11:05 AM) [id number] DICTATED and SIGNED BY: CHAMP GRECO MD DATE: 10/04/20 [id number] [facility] [address] [place] [address] IMAGING REPORT Signed PATIENT: PRIYANKA ELISE ACCOUNT: [id number] : 1930 LOCATION: ER AGE: 89 SEX: F EXAM STATUS: REG ER ORD. PHYSICIAN: HERBIE JOHNSON APRN REASON: ABD PAIN, AMS PROCEDURE: CT ABDOMEN PELVIS WO CONTRAST PQRS Compliance Statement: One or more of the following individualized dose reduction techniques were utilized for this examination: 1. Automated exposure control 2. Adjustment of the mA and/or kV according to patient size 3. Use of iterative reconstruction technique Exam performed: CT scan of the abdomen and pelvis without contrast. CT head w ithout contrast Clinical Indication: Reason: AMS / Spl. Instructions: / History: Abdominal pain Date of Service: 10/04/2020 11:14 AM. Comparison: CT head without contrast from 02/16/2019 Technique: Contiguous helical acquisitions are obtained from the foramen magnum to the vertex and through the abdomen and pelvis without IV contrast. Sagittal and coronal reformatted images are obtained and reviewed. CT head: Prominence of cortical sulci and ventricular system is noted consistent with age-related atrophy. There are areas of low-attenuation in both periventricular and subcortical deep white matter persisting small vessel ischemic changes. There is no extra axial fluid collection, intraparenchymal hemorrhage, mass or acute infarct. Visualized orbits, paranasal sinuses and the mastoid air cells are clear. IMPRESSION: No acute intracranial process detected. Age-related atrophy and bilateral periventricular small vessel ischemic changes. End impression. CT abdomen and pelvis findings: Minimal linear opacities are seen in the right lung base. There are also mild reticulonodular opacities both lung bases. The visualized heart is normal. Diffuse atheromatous thoracic aortic calcification. Unopacified liver, spleen, gallbladder and pancreas appear normal. Both adrenal glands and bilateral kidneys are normal in size. There is no hydronephrosis or nephrolithiasis. Diffuse atheromatous aortic calcification. Suspected gallstone . Small and large bowel loops are nondilated and unremarkable. There is extensive scattered stool in the colon. The uterus is anteverted. No adnexal masses seen. There are spondylotic changes and multilevel disc degenerative changes involving the lumbar spine. There is loss of height of T12 vertebral body. Impression: No acute intra-abdominal or pelvic process detected. Extensive scattered stool throughout the colon. Correlate clinically for constipation. Loss of height of T12 vertebral body. Acuity unknown. Correlate with area of focal pain and if indicated evaluation with MRI of the thoracolumbar spine may be obtained to rule out possibility of acute compression fracture. VTE Prophylaxis Ordered VTE Prophylaxis Devices: No VTE Pharmacological Prophylaxi: Yes Assessment/Plan Assessment/Plan Altered mental status Healthcare associated pneumonia - possibly gram-negative or possibly gram- positive organism History atrial fibrillation HTN Hypothyroidism Systolic CHF Failure to thrive Moderate malnutrition Plan: Continue treatment of HCAP with Zosyn; MRSA pending Echocardiogram from 11/21/2018 showed EF 25-30%, moderate pulmonary hypertension Will resume home medications PT/OT FEN - Cardiac diet PPX - Eliquis DNR Dispo - inpatient for above Justifications for Admission Other Justification LEORA MCFADDEN MD Oct 04, 2020 13:15
[2020-10-04 14:00] VITALS: BP 138/59
[2020-10-04] MEDS: traMADol 50 MG TABLET PO SCH ×3 (14:00→23:58)
--- NOTE | 2020-10-04 14:40 | NUR ---
Pt arrived on unit at approx 1400 by bed via ER staff. Pt transferred to bed x2 assist. Pt alert & oriented, denies pain upon admission. POC/orders reviewed. Tele monitor applied. Fresh water given, meal tray ordered. Pt oriented to call light and unit routines. Two side rails up, bed alarm in place. Will assume care of this pt.
--- NOTE | 2020-10-04 16:08 | PDOC ---
PULMONARY PROGRESS NOTES DATE: 10/04/20 TIME: 16:08 Vitals Vital Signs Date Time Temp Pulse Resp B/P (MAP) Pulse Ox O2 Delivery O2 Flow Rate FiO2 10/04/20 15:00 Room Air 10/04/20 14:00 97.9 66 17 138/59 (85) 100 97.9 General: Alert, No acute distress Lungs: Clear Cardiovascular: S1 Abdomen: Soft Extremities: No Edema Labs Laboratory Tests Test 10/04/20 10:45 10/04/20 11:02 10/04/20 11:53 10/04/20 13:30 White Blood Count 12.0 x10^3/uL (4.0-11.0) Red Blood Count 4.72 x10^6/uL (3.50-5.40) Hemoglobin 14.7 g/dL (12.0-15.5) Hematocrit 45.2 % (36.0-47.0) Mean Corpuscular Volume 96 fL (79-100) Mean Corpuscular Hemoglobin 31 pg (25-35) Mean Corpuscular Hemoglobin Concent 32 g/dL (31-37) Red Cell Distribution Width 15.6 % (11.5-14.5) Platelet Count 260 x10^3/uL (140-400) Neutrophils (%) (Auto) 70 % (31-73) Lymphocytes (%) (Auto) 20 % (24-48) Monocytes (%) (Auto) 7 % (0-9) Eosinophils (%) (Auto) 2 % (0-3) Basophils (%) (Auto) 1 % (0-3) Neutrophils # (Auto) 8.4 x10^3/uL (1.8-7.7) Lymphocytes # (Auto) 2.4 x10^3/uL (1.0-4.8) Monocytes # (Auto) 0.9 x10^3/uL (0.0-1.1) Eosinophils # (Auto) 0.2 x10^3/uL (0.0-0.7) Basophils # (Auto) 0.1 x10^3/uL (0.0-0.2) Sodium Level 137 mmol/L (136-145) Potassium Level 5.0 mmol/L (3.5-5.1) Chloride Level 103 mmol/L (98-107) Carbon Dioxide Level 23 mmol/L (21-32) Anion Gap 11 (6-14) Blood Urea Nitrogen 29 mg/dL (7-20) Creatinine 1.2 mg/dL (0.6-1.0) Estimated GFR (Cockcroft-Gault) 42.4 BUN/Creatinine Ratio 24 (6-20) Glucose Level 83 mg/dL (70-99) Lactic Acid Level 1.5 mmol/L (0.4-2.0) Calcium Level 9.7 mg/dL (8.5-10.1) Total Bilirubin 0.7 mg/dL (0.2-1.0) Aspartate Amino Transf (AST/SGOT) 32 U/L (15-37) Alanine Aminotransferase (ALT/SGPT) 18 U/L (14-59) Alkaline Phosphatase 50 U/L (46-116) Troponin I Quantitative < 0.017 ng/mL (0.000-0.055) < 0.017 ng/mL (0.000-0.055) AD-Jun-M-Type Natriuretic Peptide 87980 pg/mL (0-449) Total Protein 8.8 g/dL (6.4-8.2) Albumin 3.0 g/dL (3.4-5.0) Albumin/Globulin Ratio 0.5 (1.0-1.7) Lipase 55 U/L (73-393) Urine Collection Type U cath Urine Color Yellow Urine Clarity Clear Urine pH 6.0 (<5.0-8.0) Urine Specific [place] 1.020 (1.000-1.030) Urine Protein Negative mg/dL (NEG-TRACE) Urine Glucose (UA) Negative mg/dL (NEG) Urine Ketones (Stick) Trace mg/dL (NEG) Urine Blood Negative (NEG) Urine Nitrite Negative (NEG) Urine Bilirubin Negative (NEG) Urine Urobilinogen Dipstick 0.2 mg/dL (0.2 mg/dL) Urine Leukocyte Esterase Negative (NEG) Urine RBC 1-2 /HPF (0-2) Urine WBC Occ /HPF (0-4) Urine Squamous Epithelial Cells Occ /LPF Urine Bacteria 0 /HPF (0-FEW) Prothrombin Time 15.9 SEC (11.7-14.0) Prothromb Time International Ratio 1.3 (0.8-1.1) Magnesium Level 2.1 mg/dL (1.8-2.4) Laboratory Tests Test 10/04/20 10:45 10/04/20 11:02 10/04/20 11:53 10/04/20 13:30 White Blood Count 12.0 x10^3/uL (4.0-11.0) Red Blood Count 4.72 x10^6/uL (3.50-5.40) Hemoglobin 14.7 g/dL (12.0-15.5) Hematocrit 45.2 % (36.0-47.0) Mean Corpuscular Volume 96 fL (79-100) Mean Corpuscular Hemoglobin 31 pg (25-35) Mean Corpuscular Hemoglobin Concent 32 g/dL (31-37) Red Cell Distribution Width 15.6 % (11.5-14.5) Platelet Count 260 x10^3/uL (140-400) Neutrophils (%) (Auto) 70 % (31-73) Lymphocytes (%) (Auto) 20 % (24-48) Monocytes (%) (Auto) 7 % (0-9) Eosinophils (%) (Auto) 2 % (0-3) Basophils (%) (Auto) 1 % (0-3) Neutrophils # (Auto) 8.4 x10^3/uL (1.8-7.7) Lymphocytes # (Auto) 2.4 x10^3/uL (1.0-4.8) Monocytes # (Auto) 0.9 x10^3/uL (0.0-1.1) Eosinophils # (Auto) 0.2 x10^3/uL (0.0-0.7) Basophils # (Auto) 0.1 x10^3/uL (0.0-0.2) Sodium Level 137 mmol/L (136-145) Potassium Level 5.0 mmol/L (3.5-5.1) Chloride Level 103 mmol/L (98-107) Carbon Dioxide Level 23 mmol/L (21-32) Anion Gap 11 (6-14) Blood Urea Nitrogen 29 mg/dL (7-20) Creatinine 1.2 mg/dL (0.6-1.0) Estimated GFR (Cockcroft-Gault) 42.4 BUN/Creatinine Ratio 24 (6-20) Glucose Level 83 mg/dL (70-99) Lactic Acid Level 1.5 mmol/L (0.4-2.0) Calcium Level 9.7 mg/dL (8.5-10.1) Total Bilirubin 0.7 mg/dL (0.2-1.0) Aspartate Amino Transf (AST/SGOT) 32 U/L (15-37) Alanine Aminotransferase (ALT/SGPT) 18 U/L (14-59) Alkaline Phosphatase 50 U/L (46-116) Troponin I Quantitative < 0.017 ng/mL (0.000-0.055) < 0.017 ng/mL (0.000-0.055) EL-Rin-E-Type Natriuretic Peptide 49449 pg/mL (0-449) Total Protein 8.8 g/dL (6.4-8.2) Albumin 3.0 g/dL (3.4-5.0) Albumin/Globulin Ratio 0.5 (1.0-1.7) Lipase 55 U/L (73-393) Urine Collection Type U cath Urine Color Yellow Urine Clarity Clear Urine pH 6.0 (<5.0-8.0) Urine Specific [place] 1.020 (1.000-1.030) Urine Protein Negative mg/dL (NEG-TRACE) Urine Glucose (UA) Negative mg/dL (NEG) Urine Ketones (Stick) Trace mg/dL (NEG) Urine Blood Negative (NEG) Urine Nitrite Negative (NEG) Urine Bilirubin Negative (NEG) Urine Urobilinogen Dipstick 0.2 mg/dL (0.2 mg/dL) Urine Leukocyte Esterase Negative (NEG) Urine RBC 1-2 /HPF (0-2) Urine WBC Occ /HPF (0-4) Urine Squamous Epithelial Cells Occ /LPF Urine Bacteria 0 /HPF (0-FEW) Prothrombin Time 15.9 SEC (11.7-14.0) Prothromb Time International Ratio 1.3 (0.8-1.1) Magnesium Level 2.1 mg/dL (1.8-2.4) Medications Active Scripts Medications Dose Route/Sig Max Daily Dose Days Date Category Benadryl (Diphenhydramine Hcl) 25 Mg Capsule 1 Cap PO QHS 30 02/16/19 Reported Mucinex (Guaifenesin) 100 Mg Gran.pack 1 Packet PO BID 5 02/16/19 Reported Aspercreme (Lidocaine) 1 Each Adh..patch 1 Patch TP DAILY 30 02/16/19 Reported Metoprolol Tartrate 25 Mg Tablet 75 Mg PO BID 11/22/18 Rx Digoxin 125 Mcg Tablet 1 Tab PO DAILY 11/15/16 Reported Mag-Oxide (Magnesium Oxide) 400 Mg Tablet 1 Tab PO BID 11/14/16 Rx Colace (Docusate Sodium) 100 Mg Capsule 1 Cap PO BID PRN 11/11/16 Reported Eliquis (Apixaban) 2.5 Mg Tablet 5 Mg PO BID 03/11/16 Reported Famotidine 20 Mg Tablet 20 Mg PO HS 03/11/16 Reported Ultram (Tramadol Hcl) 50 Mg Tablet 1 Tab PO Q6HRS 03/09/16 Reported Levothyroxine Sodium 100 Mcg Tablet 1 Tab PO DAILY 03/09/16 Reported Lisinopril 2.5 Mg Tablet 2.5 Mg PO DAILY 12/31/13 Reported Multi Vitamin Daily (Multivitamin) 1 Each Tablet 1 Each PO 12/31/13 Reported Zoloft (Sertraline Hcl) 100 Mg Tablet 100 Mg PO DAILY 12/31/13 Reported Lovastatin 40 Mg Tablet 40 Mg PO HS 12/31/13 Reported Impression . note dictated agree with current rx check ct chest SOHAIL CROCKER MD Oct 04, 2020 16:08
[2020-10-04] MEDS ORDERED: FURO20TA3 PO (16:15)
[2020-10-04] MEDS ORDERED: MENT118G TP (16:15)
[2020-10-04] MEDS ORDERED: GUAI600T47 PO (16:15)
[2020-10-04] MEDS ORDERED: MELA5TAB20 PO (16:15)
[2020-10-04] MEDS ORDERED: ACET500T68 PO ×2 (16:15)
[2020-10-04] MEDS ORDERED: LOPE2TAB27 PO (16:15)
[2020-10-04] MEDS ORDERED: GUAI-44 PO (16:15)
[2020-10-04] MEDS ORDERED: MIRT7.5T8 PO (16:15)
[2020-10-04] MEDS: PIPERACILLIN/TAZOBACTAM 2.25 GM in IV NORMAL SALINE 50ML 50 ML IV SCH ×2 (18:25→23:57)
[2020-10-04 19:00] VITALS: BP 112/52
[2020-10-04] MEDS ORDERED: guaiFENesin ORAL 200 MG/10 ML LIQUID. PO PRN (19:15)
[2020-10-04] MEDS ORDERED: LOPERAMIDE 2 MG CAPSULE PO PRN (19:30)
[2020-10-04] MEDS: FAMOTIDINE 20 MG TABLET. PO SCH (20:36)
[2020-10-04] MEDS: ATORVASTATIN CALCIUM 10 MG TABLET. PO SCH (20:36)
[2020-10-04] MEDS: diphenhydrAMINE HCL 25 MG CAPSULE PO SCH (20:36)
[2020-10-04] MEDS: MIRTAZAPINE 7.5 MG TABLET. PO SCH (20:36)
[2020-10-04] MEDS: METHYL SALICYLATE/MENTHOL TOPICAL CREAM 57GM TUBE. TP SCH (20:41)
[2020-10-04] MEDS ORDERED: NON FORMULARY ITEM (Melatonin 1 TAB) PO SCH (21:00)
[2020-10-04] MEDS ORDERED: APIXABAN 5 MG TABLET. PO SCH (21:00)
[2020-10-04] MEDS ORDERED: MAGNESIUM OXIDE 400 MG TABLET PO SCH (21:00)
[2020-10-04] MEDS ORDERED: METOPROLOL TART IMMED RELEASE 25 MG TABLET. PO SCH (21:00)
--- NOTE | 2020-10-04 21:47 | CONS ---
DATE OF CONSULTATION: 10/04/2020 ATTENDING PHYSICIAN: Dr. Piedra. REASON FOR CONSULTATION: The patient is seen in pulmonary consultation at the request of Dr. Piedra for abnormal x-ray. HISTORY OF PRESENT ILLNESS: The patient is an 89-year-old that has comorbidities; AFib, CHF, hyperlipidemia, hypertension, presented from assisted living due to altered mental status. She has also been having difficulty with failure to thrive. She has lost a great deal of weight. A chest x-ray was obtained, which revealed bilateral upper lobe infiltrates, right greater than left. I was asked to see her in consultation. The patient in the emergency room was evaluated. She had a white count, which was elevated. She has received IV Zosyn and IV fluids. The patient denies smoking. She has a cough, mostly nonproductive. No hemoptysis. She has been losing weight. PAST MEDICAL HISTORY: Chronic AFib, hypertension, chronic heart failure, hyperlipidemia, peptic ulcer disease, osteoarthritis, hypothyroidism. PAST SURGICAL HISTORY: Previous pacemaker. ALLERGIES: No known drug allergies. REVIEW OF SYSTEMS: CONSTITUTIONAL: No fever or chills. EYES: No change in visual acuity. HENT: No nasal congestion. No sore throat. PULMONARY: As indicated above. CARDIOVASCULAR: No chest pain, no pressure. GASTROINTESTINAL: No nausea, vomiting, diarrhea. No dysphagia. GENITOURINARY: No frequency. NEUROMUSCULAR: No localized muscle aches or pain. SKIN: No new skin rashes. CURRENT MEDICATIONS: List was reviewed. She is on IV Zosyn. She is also receiving her usual home medications. PHYSICAL EXAMINATION: VITAL SIGNS: Stable. O2 saturation was greater than 92%. She is currently on room air. HEENT: Eyes; sclerae was nonicteric. NECK: Jugular venous distention was not elevated. No lymphadenopathy. CHEST: Full expansion. LUNGS: Slight crackles throughout both lung mackey. No wheezes. CARDIOVASCULAR: Regular rate and rhythm with S1, S2. No S3. ABDOMEN: Soft, nontender. EXTREMITIES: No clubbing, cyanosis or edema. LABORATORY DATA: White count was 12,000, hemoglobin and hematocrit were noted. Electrolytes were noted. BNP was markedly elevated. INR was 1.3. UA was noted. Chest x-ray as indicated above. IMPRESSION: 1. Abnormal x-ray, compatible with pneumonia, possibly chronic changes. 2. Metabolic toxic encephalopathy. 3. Pneumonia, suspect gram negative, possibly gram-positive. 4. History of atrial fibrillation. 5. Hypertension. 6. Chronic systolic heart failure. 7. Hypothyroidism. 8. Weight loss. 9. Moderate to severe protein malnutrition present upon admission. 10. Cardiomyopathy with ejection fraction previously estimated at 25-30 percent. PLAN: 1. We will proceed with continue coverage for hospital-acquired pneumonia with Zosyn. 2. Obtain CT chest. 3. Resume home medications. 4. MRSA nasal screen for MRSA. I do appreciate the privilege in sharing in the patient's care. PHUC LUNA: Bruna TID: [id number]
[2020-10-04 23:00] VITALS: BP 136/70
[2020-10-05 03:12] VITALS: BP 110/65
[2020-10-05 04:44] LABS: BASO % 0 % (0-3); EOS % 0 % (0-3); HEMATOCRIT 38.5 % (36.0-47.0); HEMOGLOBIN 12.5 g/dL (12.0-15.5); LYMPH # 1.2 x10^3/uL (1.0-4.8); LYMPH % 15 % (24-48); MEAN CORPUSCULAR HEMOGLOBIN 31 pg (25-35); MEAN CORPUSCULAR HGB CONC 33 g/dL (31-37); MEAN CORPUSCULAR VOLUME 96 fL (79-100); MONO # 0.7 x10^3/uL (0.0-1.1); MONO % 8 % (0-9); NEUT # 6.3 x10^3/uL (1.8-7.7); NEUT % 77 % (31-73); PLATELET COUNT 204 x10^3/uL (140-400); RED CELL DISTRIBUTION WIDTH 15.4 % (11.5-14.5); WHITE BLOOD COUNT 8.2 x10^3/uL (4.0-11.0)
[2020-10-05 05:28] LABS: CALCIUM 8.7 mg/dL (8.5-10.1); GFR 52.3; POTASSIUM 4.5 mmol/L (3.5-5.1)
[2020-10-05] MEDS: LEVOTHYROXINE 100 MCG TABLET PO SCH (05:57)
[2020-10-05] MEDS: traMADol 50 MG TABLET PO SCH ×3 (05:57→18:04)
[2020-10-05] MEDS: PIPERACILLIN/TAZOBACTAM 2.25 GM in IV NORMAL SALINE 50ML 50 ML IV SCH ×3 (06:00→18:00)
[2020-10-05 07:40] VITALS: BP 146/73
--- NOTE | 2020-10-05 08:29 | RAD ---
PQRS Compliance Statement: One or more of the following individualized dose reduction techniques were utilized for this examinat ion: 1. Automated exposure control 2. Adjustment of the mA and/or kV according to patient size 3. Use of iterative reconstruction technique CT THORAX WO 10/04/2020 5:49 PM Indication: Infiltrates COMPARISON: CT chest 11/14/2016, chest radiograph 10/04/2020 TECHNIQUE: Multiple axial CT images of the chest were obtained without intravenous contrast. Coronal and sagittal reformats are provided. FINDINGS: There is biapical pleural-parenchymal scarring. Findings are progressed since prior examination from 11/14/2016. Tree-in-bud nodular airspace disease identified in the right upper lobe laterally, within t he right middle lobe and inferior lingula. There is wedge-shaped consolidative change identified fernando g the subpleural right middle lobe laterally measuring 2.2 x 1.0 cm. Solid noncalcified pulmonary nod ule in the right middle lobe measures 0.7 cm. No pleural effusions, pulmonary vascular congestion or pneumothorax. Mild centrilobular pulmonary emphysema. Heart size is enlarged. Thoracic aorta is zaira l in course and caliber measuring up to 2.19 long ascending segment. There is moderate calcified athe romatous plaque. Cardiac pacer wires are partially profiled terminating in the right ventricle. Thora cic esophagus is normal in appearance. No pathologically enlarged aggressive lymph nodes within the l imitations of a noncontrast examination. Visualized portions of the upper abdomen appear normal. [employer] daphne superior endplate compression deformity is identified at T12. IMPRESSION: Tree-in-bud nodular airspace disease identified scattered throughout the lungs predominantly involvin g the right upper lobe, right middle lobe and lingula. Consideration may be given for an infectious/i nflammatory bronchiolitis. Atypical infection as may be seen with mycobacterium avium complex is a di fferential consideration. There is a focal wedge-shaped area of consolidative change in the lateral r ight middle lobe. 3 month follow-up chest CT is recommended to assess for underlying neoplastic cause s. Electronically signed by: Vanessa Zamudio MD (10/05/2020 8:26 AM) [facility]
[2020-10-05] MEDS: SERTRALINE 50 MG TABLET. PO SCH (08:47)
[2020-10-05] MEDS: FUROSEMIDE 20 MG TABLET PO SCH (08:47)
[2020-10-05] MEDS: DIGOXIN 125 MCG TABLET. PO SCH (08:47)
[2020-10-05] MEDS: LISINOPRIL 5 MG TABLET. PO SCH (08:48)
[2020-10-05] MEDS: HEPARIN for SUB-Q USE 5,000 UNIT/ML VIAL. SQ SCH ×2 (08:48→20:51)
[2020-10-05] MEDS: METHYL SALICYLATE/MENTHOL TOPICAL CREAM 57GM TUBE. TP SCH ×4 (08:48→20:54)
--- NOTE | 2020-10-05 10:52 | PDOC ---
PULMONARY PROGRESS NOTES DATE: 10/05/20 TIME: 10:52 Subjective pt. remains on room air no increased SOA or Cough afebrile Vitals Vital Signs Date Time Temp Pulse Resp B/P (MAP) Pulse Ox O2 Delivery O2 Flow Rate FiO2 10/05/20 08:48 84 146/73 10/05/20 07:40 98.2 16 94 Room Air 98.2 ROS: No Nausea, No Chest Pain, No Abdominal Pain, No Increase Cough General: Alert, No acute distress Lungs: Clear Cardiovascular: S1 Abdomen: Soft Extremities: No Edema Labs Laboratory Tests Test 10/04/20 10:45 10/04/20 11:02 10/04/20 11:53 10/04/20 13:30 White Blood Count 12.0 x10^3/uL (4.0-11.0) Red Blood Count 4.72 x10^6/uL (3.50-5.40) Hemoglobin 14.7 g/dL (12.0-15.5) Hematocrit 45.2 % (36.0-47.0) Mean Corpuscular Volume 96 fL (79-100) Mean Corpuscular Hemoglobin 31 pg (25-35) Mean Corpuscular Hemoglobin Concent 32 g/dL (31-37) Red Cell Distribution Width 15.6 % (11.5-14.5) Platelet Count 260 x10^3/uL (140-400) Neutrophils (%) (Auto) 70 % (31-73) Lymphocytes (%) (Auto) 20 % (24-48) Monocytes (%) (Auto) 7 % (0-9) Eosinophils (%) (Auto) 2 % (0-3) Basophils (%) (Auto) 1 % (0-3) Neutrophils # (Auto) 8.4 x10^3/uL (1.8-7.7) Lymphocytes # (Auto) 2.4 x10^3/uL (1.0-4.8) Monocytes # (Auto) 0.9 x10^3/uL (0.0-1.1) Eosinophils # (Auto) 0.2 x10^3/uL (0.0-0.7) Basophils # (Auto) 0.1 x10^3/uL (0.0-0.2) Sodium Level 137 mmol/L (136-145) Potassium Level 5.0 mmol/L (3.5-5.1) Chloride Level 103 mmol/L (98-107) Carbon Dioxide Level 23 mmol/L (21-32) Anion Gap 11 (6-14) Blood Urea Nitrogen 29 mg/dL (7-20) Creatinine 1.2 mg/dL (0.6-1.0) Estimated GFR (Cockcroft-Gault) 42.4 BUN/Creatinine Ratio 24 (6-20) Glucose Level 83 mg/dL (70-99) Lactic Acid Level 1.5 mmol/L (0.4-2.0) Calcium Level 9.7 mg/dL (8.5-10.1) Total Bilirubin 0.7 mg/dL (0.2-1.0) Aspartate Amino Transf (AST/SGOT) 32 U/L (15-37) Alanine Aminotransferase (ALT/SGPT) 18 U/L (14-59) Alkaline Phosphatase 50 U/L (46-116) Troponin I Quantitative < 0.017 ng/mL (0.000-0.055) < 0.017 ng/mL (0.000-0.055) AX-Pdp-O-Type Natriuretic Peptide 03564 pg/mL (0-449) Total Protein 8.8 g/dL (6.4-8.2) Albumin 3.0 g/dL (3.4-5.0) Albumin/Globulin Ratio 0.5 (1.0-1.7) Lipase 55 U/L (73-393) Urine Collection Type U cath Urine Color Yellow Urine Clarity Clear Urine pH 6.0 (<5.0-8.0) Urine Specific Atlas 1.020 (1.000-1.030) Urine Protein Negative mg/dL (NEG-TRACE) Urine Glucose (UA) Negative mg/dL (NEG) Urine Ketones (Stick) Trace mg/dL (NEG) Urine Blood Negative (NEG) Urine Nitrite Negative (NEG) Urine Bilirubin Negative (NEG) Urine Urobilinogen Dipstick 0.2 mg/dL (0.2 mg/dL) Urine Leukocyte Esterase Negative (NEG) Urine RBC 1-2 /HPF (0-2) Urine WBC Occ /HPF (0-4) Urine Squamous Epithelial Cells Occ /LPF Urine Bacteria 0 /HPF (0-FEW) Prothrombin Time 15.9 SEC (11.7-14.0) Prothromb Time International Ratio 1.3 (0.8-1.1) Magnesium Level 2.1 mg/dL (1.8-2.4) Test 10/04/20 16:48 10/05/20 04:03 Troponin I Quantitative < 0.017 ng/mL (0.000-0.055) White Blood Count 8.2 x10^3/uL (4.0-11.0) Red Blood Count 4.00 x10^6/uL (3.50-5.40) Hemoglobin 12.5 g/dL (12.0-15.5) Hematocrit 38.5 % (36.0-47.0) Mean Corpuscular Volume 96 fL (79-100) Mean Corpuscular Hemoglobin 31 pg (25-35) Mean Corpuscular Hemoglobin Concent 33 g/dL (31-37) Red Cell Distribution Width 15.4 % (11.5-14.5) Platelet Count 204 x10^3/uL (140-400) Neutrophils (%) (Auto) 77 % (31-73) Lymphocytes (%) (Auto) 15 % (24-48) Monocytes (%) (Auto) 8 % (0-9) Eosinophils (%) (Auto) 0 % (0-3) Basophils (%) (Auto) 0 % (0-3) Neutrophils # (Auto) 6.3 x10^3/uL (1.8-7.7) Lymphocytes # (Auto) 1.2 x10^3/uL (1.0-4.8) Monocytes # (Auto) 0.7 x10^3/uL (0.0-1.1) Eosinophils # (Auto) 0.0 x10^3/uL (0.0-0.7) Basophils # (Auto) 0.0 x10^3/uL (0.0-0.2) Sodium Level 143 mmol/L (136-145) Potassium Level 4.5 mmol/L (3.5-5.1) Chloride Level 109 mmol/L (98-107) Carbon Dioxide Level 22 mmol/L (21-32) Anion Gap 12 (6-14) Blood Urea Nitrogen 24 mg/dL (7-20) Creatinine 1.0 mg/dL (0.6-1.0) Estimated GFR (Cockcroft-Gault) 52.3 Glucose Level 158 mg/dL (70-99) Calcium Level 8.7 mg/dL (8.5-10.1) Thyroid Stimulating Hormone (TSH) 0.046 uIU/mL (0.358-3.74) Free Thyroxine 1.14 ng/dL (0.76-1.46) Laboratory Tests Test 10/04/20 11:02 10/04/20 11:53 10/04/20 13:30 10/04/20 16:48 Urine Collection Type U cath Urine Color Yellow Urine Clarity Clear Urine pH 6.0 (<5.0-8.0) Urine Specific Atlas 1.020 (1.000-1.030) Urine Protein Negative mg/dL (NEG-TRACE) Urine Glucose (UA) Negative mg/dL (NEG) Urine Ketones (Stick) Trace mg/dL (NEG) Urine Blood Negative (NEG) Urine Nitrite Negative (NEG) Urine Bilirubin Negative (NEG) Urine Urobilinogen Dipstick 0.2 mg/dL (0.2 mg/dL) Urine Leukocyte Esterase Negative (NEG) Urine RBC 1-2 /HPF (0-2) Urine WBC Occ /HPF (0-4) Urine Squamous Epithelial Cells Occ /LPF Urine Bacteria 0 /HPF (0-FEW) Prothrombin Time 15.9 SEC (11.7-14.0) Prothromb Time International Ratio 1.3 (0.8-1.1) Magnesium Level 2.1 mg/dL (1.8-2.4) Troponin I Quantitative < 0.017 ng/mL (0.000-0.055) < 0.017 ng/mL (0.000-0.055) Test 10/05/20 04:03 White Blood Count 8.2 x10^3/uL (4.0-11.0) Red Blood Count 4.00 x10^6/uL (3.50-5.40) Hemoglobin 12.5 g/dL (12.0-15.5) Hematocrit 38.5 % (36.0-47.0) Mean Corpuscular Volume 96 fL (79-100) Mean Corpuscular Hemoglobin 31 pg (25-35) Mean Corpuscular Hemoglobin Concent 33 g/dL (31-37) Red Cell Distribution Width 15.4 % (11.5-14.5) Platelet Count 204 x10^3/uL (140-400) Neutrophils (%) (Auto) 77 % (31-73) Lymphocytes (%) (Auto) 15 % (24-48) Monocytes (%) (Auto) 8 % (0-9) Eosinophils (%) (Auto) 0 % (0-3) Basophils (%) (Auto) 0 % (0-3) Neutrophils # (Auto) 6.3 x10^3/uL (1.8-7.7) Lymphocytes # (Auto) 1.2 x10^3/uL (1.0-4.8) Monocytes # (Auto) 0.7 x10^3/uL (0.0-1.1) Eosinophils # (Auto) 0.0 x10^3/uL (0.0-0.7) Basophils # (Auto) 0.0 x10^3/uL (0.0-0.2) Sodium Level 143 mmol/L (136-145) Potassium Level 4.5 mmol/L (3.5-5.1) Chloride Level 109 mmol/L (98-107) Carbon Dioxide Level 22 mmol/L (21-32) Anion Gap 12 (6-14) Blood Urea Nitrogen 24 mg/dL (7-20) Creatinine 1.0 mg/dL (0.6-1.0) Estimated GFR (Cockcroft-Gault) 52.3 Glucose Level 158 mg/dL (70-99) Calcium Level 8.7 mg/dL (8.5-10.1) Thyroid Stimulating Hormone (TSH) 0.046 uIU/mL (0.358-3.74) Free Thyroxine 1.14 ng/dL (0.76-1.46) Medications Active Scripts Medications Dose Route/Sig Max Daily Dose Days Date Category Benadryl (Diphenhydramine Hcl) 25 Mg Capsule 1 Cap PO QHS 30 02/16/19 Reported Mucinex (Guaifenesin) 100 Mg Gran.pack 1 Packet PO BID 5 02/16/19 Reported Aspercreme (Lidocaine) 1 Each Adh..patch 1 Patch TP DAILY 30 02/16/19 Reported Metoprolol Tartrate 25 Mg Tablet 75 Mg PO BID 11/22/18 Rx Digoxin 125 Mcg Tablet 1 Tab PO DAILY 11/15/16 Reported Mag-Oxide (Magnesium Oxide) 400 Mg Tablet 1 Tab PO BID 11/14/16 Rx Colace (Docusate Sodium) 100 Mg Capsule 1 Cap PO BID PRN 11/11/16 Reported Eliquis (Apixaban) 2.5 Mg Tablet 5 Mg PO BID 03/11/16 Reported Famotidine 20 Mg Tablet 20 Mg PO HS 03/11/16 Reported Ultram (Tramadol Hcl) 50 Mg Tablet 1 Tab PO Q6HRS 03/09/16 Reported Levothyroxine Sodium 100 Mcg Tablet 1 Tab PO DAILY 03/09/16 Reported Lisinopril 2.5 Mg Tablet 2.5 Mg PO DAILY 12/31/13 Reported Multi Vitamin Daily (Multivitamin) 1 Each Tablet 1 Each PO 12/31/13 Reported Zoloft (Sertraline Hcl) 100 Mg Tablet 100 Mg PO DAILY 12/31/13 Reported Lovastatin 40 Mg Tablet 40 Mg PO HS 12/31/[address] chest IMPRESSION: Tree-in-bud nodular airspace disease identified scattered throughout the lungs predominantly involving the right upper lobe, right middle lobe and lingula. Consideration may be given for an infectious/inflammatory bronchiolitis. Atypical infection as may be seen with mycobacterium avium complex is a differential consideration. There is a focal wedge-shaped area of consolidative change in the lateral right middle lobe. 3 month follow-up chest CT is recommended to assess for underlying neoplastic causes. Impression . IMPRESSION: 1. Abnormal x-ray, compatible with pneumonia, possibly chronic changes. 2. Metabolic toxic encephalopathy. 3. Pneumonia, suspect gram negative, possibly gram-positive. 4. History of atrial fibrillation. 5. Hypertension. 6. Chronic systolic heart failure. 7. Hypothyroidism. 8. Weight loss. 9. Moderate to severe protein malnutrition present upon admission. 10. Cardiomyopathy with ejection fraction previously estimated at 25-[address] CHEST Tree-in-bud nodular airspace disease identified scattered throughout the lungs predominantly involving the right upper lobe, right middle lobe and lingula. Consideration may be given for an infectious/inflammatory bronchiolitis. Atypical infection as may be seen with mycobacterium avium complex is a differential consideration. There is a focal wedge-shaped area of consolidative change in the lateral right middle lobe. 3 month follow-up chest CT is recommended to assess for underlying neoplastic causes. Plan . 10/05 Pt. is stable from pulmonary stand point Continue ABX for ASA PNA Obtain sputum sample CT chest reviewed MRSA Negative Echocardiogram from 11/21/2018 showed EF 25-30%, moderate pulmonary hypertension DVT/GI PPX :teri Pt. is DNR D/W RN Dispo: Discharge in 48 hours, Follow up in Office 10/04 1. We will proceed with continue coverage for hospital-acquired pneumonia with Zosyn. 2. Obtain CT chest. 3. Resume home medications. 4. MRSA nasal screen for MRSA. I do appreciate the privilege in sharing in the patient's care. SOHAIL CROCKER MD Oct 05, 2020 10:52
[2020-10-05 11:28] VITALS: BP 100/47
--- NOTE | 2020-10-05 12:23 | PDOC ---
[employer] PROGRESS NOTE Date of Service DOS: DATE: 10/05/20 TIME: 12:22 Chief Complaint Chief Complaint Assessment/Plan Altered mental status Healthcare associated pneumonia - possibly gram-negative or possibly gram- positive organism History atrial fibrillation HTN Hypothyroidism Systolic CHF Failure to thrive Moderate malnutrition Plan: Continue treatment of HCAP with Zosyn; MRSA pending Echocardiogram from 11/21/2018 showed EF 25-30%, moderate pulmonary hypertension Will resume home medications PT/OT FEN - Cardiac diet PPX - Eliquis DNR Dispo - inpatient for above History of Present Illness History of Present Illness 09/27/2020 No acute events overnight. Patient is alert and awake oriented x2. She does have some waxing and waning episodes in her orientation. No acute aggressive or agitated episodes. Saturating well on room air. Tolerating breakfast without any concerns from nursing at this time. Patient seen examined bedside. Patient's chart, labs, images were reviewed and discussed with RN 89-year-old female past medical history CKD, A. fib, anxiety/depression, HTN, HLD, hypothyroidism, PVD, who presents to the ED from [facility] essentially due to altered mental status and failure to thrive over the past 3 days. Reportedly patient is normally A&O x3, but apparently this did not been the case recently. In the ED she reportedly had some complaints of epigastric/chest pain. Chest x-ray on admission showed calcified aorta, pacemaker in place, and patchy infiltrate to the left upper lobe. CT head and CT abdomen/pelvis showed no acute process. Labs on admission showed WBC 12.0, BUN 29, creatinine 1.2, BNP 10,934, albumin 3.0, lactic acid 1.5, troponin <0.017. She received Zosyn and IV fluids in the ED. She has documentation that she has been COVID-19 vaccinated as well as documentation of DNR CODE STATUS. She will be admitted for further medical management. Vitals/I&O Vitals/I&O: Vital Signs Date Time Temp Pulse Resp B/P (MAP) Pulse Ox O2 Delivery O2 Flow Rate FiO2 10/05/20 11:28 97.5 91 16 100/47 (64) 95 Room Air 97.5 I & O 10/04/20 10/04/20 10/05/20 15:00 23:00 07:00 Intake Total 1100 ml 25 ml Output Total 300 ml Balance 1100 ml -275 ml Physical Exam Lungs: Clear Labs Labs: Laboratory Tests Test 10/04/20 13:30 10/04/20 16:48 10/05/20 04:03 Troponin I Quantitative < 0.017 ng/mL (0.000-0.055) < 0.017 ng/mL (0.000-0.055) White Blood Count 8.2 x10^3/uL (4.0-11.0) Red Blood Count 4.00 x10^6/uL (3.50-5.40) Hemoglobin 12.5 g/dL (12.0-15.5) Hematocrit 38.5 % (36.0-47.0) Mean Corpuscular Volume 96 fL (79-100) Mean Corpuscular Hemoglobin 31 pg (25-35) Mean Corpuscular Hemoglobin Concent 33 g/dL (31-37) Red Cell Distribution Width 15.4 % (11.5-14.5) Platelet Count 204 x10^3/uL (140-400) Neutrophils (%) (Auto) 77 % (31-73) Lymphocytes (%) (Auto) 15 % (24-48) Monocytes (%) (Auto) 8 % (0-9) Eosinophils (%) (Auto) 0 % (0-3) Basophils (%) (Auto) 0 % (0-3) Neutrophils # (Auto) 6.3 x10^3/uL (1.8-7.7) Lymphocytes # (Auto) 1.2 x10^3/uL (1.0-4.8) Monocytes # (Auto) 0.7 x10^3/uL (0.0-1.1) Eosinophils # (Auto) 0.0 x10^3/uL (0.0-0.7) Basophils # (Auto) 0.0 x10^3/uL (0.0-0.2) Sodium Level 143 mmol/L (136-145) Potassium Level 4.5 mmol/L (3.5-5.1) Chloride Level 109 mmol/L (98-107) Carbon Dioxide Level 22 mmol/L (21-32) Anion Gap 12 (6-14) Blood Urea Nitrogen 24 mg/dL (7-20) Creatinine 1.0 mg/dL (0.6-1.0) Estimated GFR (Cockcroft-Gault) 52.3 Glucose Level 158 mg/dL (70-99) Calcium Level 8.7 mg/dL (8.5-10.1) Thyroid Stimulating Hormone (TSH) 0.046 uIU/mL (0.358-3.74) Free Thyroxine 1.14 ng/dL (0.76-1.46) Assessment and Plan Assessmemt and Plan Problems Medical Problems: (1) AMS (altered mental status) Status: Acute (2) CAP (community acquired pneumonia) Status: Acute Comment Review of Relevant I have reviewed the following items ori (where applicable) has been applied. Medications: Current Medications Medications (Trade) Dose Ordered Sig/Jess Route PRN Reason Start Time Stop Time Status Last Admin Dose Admin Piperacillin Sod/ Tazobactam Sod 2.25 gm/Sodium Chloride 50 ml @ 100 mls/hr Q6HRS IV 10/04/20 18:00 10/05/20 11:48 Digoxin (Lanoxin) 125 mcg DAILY PO 10/05/20 09:00 10/05/20 08:47 Famotidine (Pepcid) 20 mg HS PO 10/04/20 21:00 10/04/20 20:36 Levothyroxine Sodium (Synthroid) 100 mcg DAILY06 PO 10/05/20 06:00 10/05/20 05:57 Tramadol HCl (Ultram) 50 mg Q6HRS PO 10/04/20 14:00 10/04/20 23:58 Guaifenesin (Mucinex) 600 mg BID PO 10/04/20 21:00 10/05/20 08:47 Lisinopril (Prinivil) 2.5 mg DAILY PO 10/05/20 09:00 10/05/20 08:48 Atorvastatin Calcium (Lipitor) 10 mg QHS PO 10/04/20 21:00 10/04/20 20:36 Sertraline HCl (Zoloft) 100 mg DAILY PO 10/05/20 09:00 10/05/20 08:47 Furosemide (Lasix) 20 mg DAILY PO 10/05/20 09:00 10/05/20 08:47 Mirtazapine (Remeron) 7.5 mg QHS PO 10/04/20 21:00 10/04/20 20:36 Menthol/Methyl Salicylate (Bengay Greaseless Cream) 1 angelito QID TP 10/04/20 21:00 10/05/20 08:48 Heparin Sodium (Porcine) (Heparin Sodium) 5,000 unit Q12HR SQ 10/05/20 09:00 10/05/20 08:48 Justifications for Admission Other Justification HCAP, AMS GUY CORREIA MD Oct 05, 2020 12:23
--- NOTE | 2020-10-05 14:10 | NUR ---
SW following. Discussed with RN, pt from [facility] [place], room air, cardiac diet. Therapy recommending return to [place] - no therapy needs. RN advised no SW needs, possible discharge home today. SW will continue to follow.
[2020-10-05 15:40] VITALS: BP 97/52
[2020-10-05 19:00] VITALS: BP 93/41
[2020-10-05] MEDS: MIRTAZAPINE 7.5 MG TABLET. PO SCH (20:50)
[2020-10-05] MEDS: FAMOTIDINE 20 MG TABLET. PO SCH (20:50)
[2020-10-05] MEDS: LACTOBACILLUS RHAMNOSUS GG 1 CAPSULE. PO SCH (20:50)
[2020-10-05] MEDS: ATORVASTATIN CALCIUM 10 MG TABLET. PO SCH (20:50)
[2020-10-05] MEDS: diphenhydrAMINE HCL 25 MG CAPSULE PO SCH (20:50)
[2020-10-05 23:00] VITALS: BP 126/68
[2020-10-06] MEDS: PIPERACILLIN/TAZOBACTAM 2.25 GM in IV NORMAL SALINE 50ML 50 ML IV SCH ×2 (01:27→06:13)
[2020-10-06 03:23] VITALS: BP 120/40
[2020-10-06] MEDS: LEVOTHYROXINE 100 MCG TABLET PO SCH (06:13)
[2020-10-06] MEDS: traMADol 50 MG TABLET PO SCH ×3 (06:13→12:00)
[2020-10-06] MEDS ORDERED: AMOX1TAB10 PO (07:10)
--- NOTE | 2020-10-06 07:10 | DISCH ---
DISCHARGE INSTRUCTIONS Condition on Discharge Condition on Discharge: Stable Activity After Discharge Activity Instructions for Disc: Activity as tolerated Lifting Instructions after Dis: Do not lift >10 pounds Exercise Instruction after Dis: Walk 15 min, 3 x per day Driving Instructions after Dis: Do not drive today Weight Bearing Status after Di: As tolerated Diet after Discharge Diet after Discharge: Cardiac Checks after Discharge Checks after discharge: Check blood press - daily, Check blood sugar, ac/hs Follow-Up Follow up with: PCP within 2 weeks of discharge Follow Up With: Pulmonology within 2 weeks of discharge Treatment/Equipment after DC Adaptive Equipment Issued: None Discharge Respiratory Equipmen: Oxygen GUY CORREIA MD Oct 06, 2020 07:10
--- NOTE | 2020-10-06 07:11 | SNU/HH DC ---
DISCHARGE ORDERS DISCHARGE INFORMATION: DISCHARGE DATE: Oct 06, 2020 FINAL DIAGNOSIS Problems Medical Problems: (1) AMS (altered mental status) Status: Acute (2) CAP (community acquired pneumonia) Status: Acute CONDITION ON DISCHARGE: Stable CODE STATUS: Code Status: DNR/DNI POST DISCHARGE ORDERS: ACTIVITY ORDERS: Activity as tolerated WEIGHT BEARING STATUS: As tolerated DIET AFTER DISCHARGE: Cardiac CHECKS AFTER DISCHARGE: CHECKS AFTER DISCHARGE: Check blood press - daily, Check blood sugar, ac/hs FOLLOW-UP: PHYSICIAN FOLLOW-UP: PCP within 2 weeks of discharge ADDITIONAL FOLLOW-UP: Pulmonology within 2 weeks of discharge TREATMENT/EQUIPMENT ORDERS: ADAPTIVE EQUIPMENT NEEDED: None RESPIRATORY EQUIPMENT NEEDED: Oxygen Physical Therapy For: Evalulation/Treatment Occupational Therapy For: Evaluation/Treatment DISCHARGE MEDICATIONS: Home Meds Active Scripts Amoxicillin/Potassium Clav (AMOX TR-K CLV 500-125 MG TAB) 1 Each Tablet, 1 TAB PO BID for pneumonia for 7 Days, #14 TAB Prov:GUY CORREIA MD 10/06/20 Metoprolol Tartrate (METOPROLOL TARTRATE) 25 Mg Tablet, 75 MG PO BID for a fib, #60 TAB Prov:ELIDA MAC MD 11/22/18 Magnesium Oxide (MAG-OXIDE) 400 Mg Tablet, 1 TAB PO BID, #60 TAB 0 Refills Prov:MIGUEL CRAIN MD 11/14/16 Reported Medications Menthol (BIOFREEZE) 118 Ml Gel..ml., 1 JENELLE TP QID for PAIN for 7 Days, #118 ML 0 Refills Apply topically to right leg 4x daily as needed for pain 10/04/20 Acetaminophen (ACETAMINOPHEN) 500 Mg Tablet, 1 TAB PO PRN Q6HRS PRN for pain or fever for 15 Days, #60 TAB 0 Refills 10/04/20 Mirtazapine (MIRTAZAPINE) 7.5 Mg Tablet, 1 TAB PO QHS for DEPRESSION for 30 Days, #30 TAB 0 Refills 10/04/20 Melatonin (MELATONIN) 5 Mg Tab.rapdis, 1 TAB PO QHS for sleep for 30 Days, #30 TAB 0 Refills 10/04/20 Furosemide (FUROSEMIDE) 20 Mg Tablet, 1 TAB PO DAILY for CHF, #90 TAB 1 Refill 10/04/20 Acetaminophen (ACETAMINOPHEN) 500 Mg Tablet, 2 TAB PO BID for PAIN 10/04/20 Digoxin (DIGOXIN) 125 Mcg Tablet, 1 TAB PO DAILY, #30 TAB 5 Refills 11/15/16 Docusate Sodium (COLACE) 100 Mg Capsule, 1 CAP PO BID PRN for CONSTIPATION, #30 CAP 11/11/16 Famotidine (FAMOTIDINE) 20 Mg Tablet, 20 MG PO HS, TAB 03/11/16 Tramadol Hcl (ULTRAM) 50 Mg Tablet, 0.5 TAB PO Q6HRS for PAIN, #30 TAB 03/09/16 Levothyroxine Sodium (LEVOTHYROXINE SODIUM) 100 Mcg Tablet, 0.5 TAB PO DAILY for HYPOTHYROID, #30 TAB 5 Refills 03/09/16 Lisinopril (LISINOPRIL) 2.5 Mg Tablet, 2.5 MG PO DAILY for FOR HYPERTENSION, #30 TAB 0 Refills 12/31/13 Multivitamin (MULTI VITAMIN DAILY) 1 Each Tablet, 1 EACH PO 12/31/13 Sertraline Hcl (ZOLOFT) 100 Mg Tablet, 100 MG PO DAILY for ANTI-DEPRESSANT, TAB 0 Refills 12/31/13 Lovastatin (LOVASTATIN) 40 Mg Tablet, 40 MG PO HS, TAB 12/31/13 Discontinued Reported Medications Guaifenesin (SILTUSSIN SA) 100 Mg/5 Ml Liquid, 200 MG PO PRN Q6HRS PRN for COUGH, LIQUID 10/04/20 Guaifenesin (MUCINEX) 600 Mg Tablet.er, 1 TAB PO PRN BID for COUGH/CONGESTION for 10 Days, TAB 0 Refills 10/04/20 Loperamide Hcl (LOPERAMIDE) 2 Mg Tablet, 2 MG PO PRN DAILY for DIARRHEA, TAB 2 capsules (4 mg) by mouth first loose stool, then 1 capsule with each subsequent loose stool. *Do not exceed 16 mg/day 10/04/20 GUY CORREIA MD Oct 06, 2020 07:11
[2020-10-06 07:40] VITALS: BP 115/61
[2020-10-06] MEDS: FUROSEMIDE 20 MG TABLET PO SCH (08:19)
[2020-10-06] MEDS: SERTRALINE 50 MG TABLET. PO SCH (08:19)
[2020-10-06] MEDS: DIGOXIN 125 MCG TABLET. PO SCH (08:19)
[2020-10-06] MEDS: LACTOBACILLUS RHAMNOSUS GG 1 CAPSULE. PO SCH (08:19)
[2020-10-06] MEDS: LISINOPRIL 5 MG TABLET. PO SCH (08:20)
[2020-10-06] MEDS: HEPARIN for SUB-Q USE 5,000 UNIT/ML VIAL. SQ SCH (08:21)
[2020-10-06] MEDS: METHYL SALICYLATE/MENTHOL TOPICAL CREAM 57GM TUBE. TP SCH ×2 (08:23→13:00)
[2020-10-06 08:30] LABS: BASO % 0 % (0-3); EOS # 0.2 x10^3/uL (0.0-0.7); EOS % 3 % (0-3); HEMOGLOBIN 12.5 g/dL (12.0-15.5); LYMPH # 1.5 x10^3/uL (1.0-4.8); LYMPH % 18 % (24-48); MEAN CORPUSCULAR HEMOGLOBIN 31 pg (25-35); MEAN CORPUSCULAR HGB CONC 32 g/dL (31-37); MEAN CORPUSCULAR VOLUME 97 fL (79-100); MONO # 0.8 x10^3/uL (0.0-1.1); MONO % 9 % (0-9); NEUT # 5.9 x10^3/uL (1.8-7.7); NEUT % 70 % (31-73); PLATELET COUNT 153 x10^3/uL (140-400); RED BLOOD COUNT 4.04 x10^6/uL (3.50-5.40); RED CELL DISTRIBUTION WIDTH 15.7 % (11.5-14.5); WHITE BLOOD COUNT 8.4 x10^3/uL (4.0-11.0)
[2020-10-06 08:49] LABS: CALCIUM 8.4 mg/dL (8.5-10.1); CREATININE 0.9 mg/dL (0.6-1.0); GFR 59.1; MAGNESIUM 1.9 mg/dL (1.8-2.4); POTASSIUM 3.7 mmol/L (3.5-5.1)
[2020-10-06] MEDS ORDERED: AMOXICILLIN/K CLAV 500/125MG TABLET. PO SCH (09:00)
--- NOTE | 2020-10-06 09:46 | PDOC ---
PULMONARY PROGRESS NOTES DATE: 10/06/20 TIME: 09:46 Subjective pt. remains on room air no increased SOA or Cough some confusion today Vitals Vital Signs Date Time Temp Pulse Resp B/P (MAP) Pulse Ox O2 Delivery O2 Flow Rate FiO2 10/06/20 08:20 79 115/61 10/06/20 07:40 98.4 16 96 Room Air 98.4 ROS: No Nausea, No Chest Pain, No Abdominal Pain, No Increase Cough General: Alert, No acute distress Lungs: Clear Cardiovascular: S1 Abdomen: Soft Extremities: No Edema Labs Laboratory Tests Test 10/04/20 10:45 10/04/20 11:02 10/04/20 11:53 10/04/20 13:30 White Blood Count 12.0 x10^3/uL (4.0-11.0) Red Blood Count 4.72 x10^6/uL (3.50-5.40) Hemoglobin 14.7 g/dL (12.0-15.5) Hematocrit 45.2 % (36.0-47.0) Mean Corpuscular Volume 96 fL (79-100) Mean Corpuscular Hemoglobin 31 pg (25-35) Mean Corpuscular Hemoglobin Concent 32 g/dL (31-37) Red Cell Distribution Width 15.6 % (11.5-14.5) Platelet Count 260 x10^3/uL (140-400) Neutrophils (%) (Auto) 70 % (31-73) Lymphocytes (%) (Auto) 20 % (24-48) Monocytes (%) (Auto) 7 % (0-9) Eosinophils (%) (Auto) 2 % (0-3) Basophils (%) (Auto) 1 % (0-3) Neutrophils # (Auto) 8.4 x10^3/uL (1.8-7.7) Lymphocytes # (Auto) 2.4 x10^3/uL (1.0-4.8) Monocytes # (Auto) 0.9 x10^3/uL (0.0-1.1) Eosinophils # (Auto) 0.2 x10^3/uL (0.0-0.7) Basophils # (Auto) 0.1 x10^3/uL (0.0-0.2) Sodium Level 137 mmol/L (136-145) Potassium Level 5.0 mmol/L (3.5-5.1) Chloride Level 103 mmol/L (98-107) Carbon Dioxide Level 23 mmol/L (21-32) Anion Gap 11 (6-14) Blood Urea Nitrogen 29 mg/dL (7-20) Creatinine 1.2 mg/dL (0.6-1.0) Estimated GFR (Cockcroft-Gault) 42.4 BUN/Creatinine Ratio 24 (6-20) Glucose Level 83 mg/dL (70-99) Lactic Acid Level 1.5 mmol/L (0.4-2.0) Calcium Level 9.7 mg/dL (8.5-10.1) Total Bilirubin 0.7 mg/dL (0.2-1.0) Aspartate Amino Transf (AST/SGOT) 32 U/L (15-37) Alanine Aminotransferase (ALT/SGPT) 18 U/L (14-59) Alkaline Phosphatase 50 U/L (46-116) Troponin I Quantitative < 0.017 ng/mL (0.000-0.055) < 0.017 ng/mL (0.000-0.055) QZ-Nnx-U-Type Natriuretic Peptide 51284 pg/mL (0-449) Total Protein 8.8 g/dL (6.4-8.2) Albumin 3.0 g/dL (3.4-5.0) Albumin/Globulin Ratio 0.5 (1.0-1.7) Lipase 55 U/L (73-393) Urine Collection Type U cath Urine Color Yellow Urine Clarity Clear Urine pH 6.0 (<5.0-8.0) Urine Specific [place] 1.020 (1.000-1.030) Urine Protein Negative mg/dL (NEG-TRACE) Urine Glucose (UA) Negative mg/dL (NEG) Urine Ketones (Stick) Trace mg/dL (NEG) Urine Blood Negative (NEG) Urine Nitrite Negative (NEG) Urine Bilirubin Negative (NEG) Urine Urobilinogen Dipstick 0.2 mg/dL (0.2 mg/dL) Urine Leukocyte Esterase Negative (NEG) Urine RBC 1-2 /HPF (0-2) Urine WBC Occ /HPF (0-4) Urine Squamous Epithelial Cells Occ /LPF Urine Bacteria 0 /HPF (0-FEW) Prothrombin Time 15.9 SEC (11.7-14.0) Prothromb Time International Ratio 1.3 (0.8-1.1) Magnesium Level 2.1 mg/dL (1.8-2.4) Test 10/04/20 16:48 10/04/20 17:30 10/05/20 04:03 10/06/20 07:50 Troponin I Quantitative < 0.017 ng/mL (0.000-0.055) Nasal Screen MRSA (PCR) Negative (NEGATIVE) White Blood Count 8.2 x10^3/uL (4.0-11.0) 8.4 x10^3/uL (4.0-11.0) Red Blood Count 4.00 x10^6/uL (3.50-5.40) 4.04 x10^6/uL (3.50-5.40) Hemoglobin 12.5 g/dL (12.0-15.5) 12.5 g/dL (12.0-15.5) Hematocrit 38.5 % (36.0-47.0) 39.0 % (36.0-47.0) Mean Corpuscular Volume 96 fL (79-100) 97 fL (79-100) Mean Corpuscular Hemoglobin 31 pg (25-35) 31 pg (25-35) Mean Corpuscular Hemoglobin Concent 33 g/dL (31-37) 32 g/dL (31-37) Red Cell Distribution Width 15.4 % (11.5-14.5) 15.7 % (11.5-14.5) Platelet Count 204 x10^3/uL (140-400) 153 x10^3/uL (140-400) Neutrophils (%) (Auto) 77 % (31-73) 70 % (31-73) Lymphocytes (%) (Auto) 15 % (24-48) 18 % (24-48) Monocytes (%) (Auto) 8 % (0-9) 9 % (0-9) Eosinophils (%) (Auto) 0 % (0-3) 3 % (0-3) Basophils (%) (Auto) 0 % (0-3) 0 % (0-3) Neutrophils # (Auto) 6.3 x10^3/uL (1.8-7.7) 5.9 x10^3/uL (1.8-7.7) Lymphocytes # (Auto) 1.2 x10^3/uL (1.0-4.8) 1.5 x10^3/uL (1.0-4.8) Monocytes # (Auto) 0.7 x10^3/uL (0.0-1.1) 0.8 x10^3/uL (0.0-1.1) Eosinophils # (Auto) 0.0 x10^3/uL (0.0-0.7) 0.2 x10^3/uL (0.0-0.7) Basophils # (Auto) 0.0 x10^3/uL (0.0-0.2) 0.0 x10^3/uL (0.0-0.2) Sodium Level 143 mmol/L (136-145) 145 mmol/L (136-145) Potassium Level 4.5 mmol/L (3.5-5.1) 3.7 mmol/L (3.5-5.1) Chloride Level 109 mmol/L (98-107) 109 mmol/L (98-107) Carbon Dioxide Level 22 mmol/L (21-32) 23 mmol/L (21-32) Anion Gap 12 (6-14) 13 (6-14) Blood Urea Nitrogen 24 mg/dL (7-20) 21 mg/dL (7-20) Creatinine 1.0 mg/dL (0.6-1.0) 0.9 mg/dL (0.6-1.0) Estimated GFR (Cockcroft-Gault) 52.3 59.1 Glucose Level 158 mg/dL (70-99) 84 mg/dL (70-99) Calcium Level 8.7 mg/dL (8.5-10.1) 8.4 mg/dL (8.5-10.1) Thyroid Stimulating Hormone (TSH) 0.046 uIU/mL (0.358-3.74) Free Thyroxine 1.14 ng/dL (0.76-1.46) Magnesium Level 1.9 mg/dL (1.8-2.4) Laboratory Tests Test 10/06/20 07:50 White Blood Count 8.4 x10^3/uL (4.0-11.0) Red Blood Count 4.04 x10^6/uL (3.50-5.40) Hemoglobin 12.5 g/dL (12.0-15.5) Hematocrit 39.0 % (36.0-47.0) Mean Corpuscular Volume 97 fL (79-100) Mean Corpuscular Hemoglobin 31 pg (25-35) Mean Corpuscular Hemoglobin Concent 32 g/dL (31-37) Red Cell Distribution Width 15.7 % (11.5-14.5) Platelet Count 153 x10^3/uL (140-400) Neutrophils (%) (Auto) 70 % (31-73) Lymphocytes (%) (Auto) 18 % (24-48) Monocytes (%) (Auto) 9 % (0-9) Eosinophils (%) (Auto) 3 % (0-3) Basophils (%) (Auto) 0 % (0-3) Neutrophils # (Auto) 5.9 x10^3/uL (1.8-7.7) Lymphocytes # (Auto) 1.5 x10^3/uL (1.0-4.8) Monocytes # (Auto) 0.8 x10^3/uL (0.0-1.1) Eosinophils # (Auto) 0.2 x10^3/uL (0.0-0.7) Basophils # (Auto) 0.0 x10^3/uL (0.0-0.2) Sodium Level 145 mmol/L (136-145) Potassium Level 3.7 mmol/L (3.5-5.1) Chloride Level 109 mmol/L (98-107) Carbon Dioxide Level 23 mmol/L (21-32) Anion Gap 13 (6-14) Blood Urea Nitrogen 21 mg/dL (7-20) Creatinine 0.9 mg/dL (0.6-1.0) Estimated GFR (Cockcroft-Gault) 59.1 Glucose Level 84 mg/dL (70-99) Calcium Level 8.4 mg/dL (8.5-10.1) Magnesium Level 1.9 mg/dL (1.8-2.4) Medications Active Scripts Medications Dose Route/Sig Max Daily Dose Days Date Category Benadryl (Diphenhydramine Hcl) 25 Mg Capsule 1 Cap PO QHS 30 02/16/19 Reported Mucinex (Guaifenesin) 100 Mg Gran.pack 1 Packet PO BID 5 02/16/19 Reported Aspercreme (Lidocaine) 1 Each Adh..patch 1 Patch TP DAILY 30 02/16/19 Reported Metoprolol Tartrate 25 Mg Tablet 75 Mg PO BID 11/22/18 Rx Digoxin 125 Mcg Tablet 1 Tab PO DAILY 11/15/16 Reported Mag-Oxide (Magnesium Oxide) 400 Mg Tablet 1 Tab PO BID 11/14/16 Rx Colace (Docusate Sodium) 100 Mg Capsule 1 Cap PO BID PRN 11/11/16 Reported Eliquis (Apixaban) 2.5 Mg Tablet 5 Mg PO BID 03/11/16 Reported Famotidine 20 Mg Tablet 20 Mg PO HS 03/11/16 Reported Ultram (Tramadol Hcl) 50 Mg Tablet 1 Tab PO Q6HRS 03/09/16 Reported Levothyroxine Sodium 100 Mcg Tablet 1 Tab PO DAILY 03/09/16 Reported Lisinopril 2.5 Mg Tablet 2.5 Mg PO DAILY 12/31/13 Reported Multi Vitamin Daily (Multivitamin) 1 Each Tablet 1 Each PO 12/31/13 Reported Zoloft (Sertraline Hcl) 100 Mg Tablet 100 Mg PO DAILY 12/31/13 Reported Lovastatin 40 Mg Tablet 40 Mg PO HS 12/31/[address] chest IMPRESSION: Tree-in-bud nodular airspace disease identified scattered throughout the lungs predominantly involving the right upper lobe, right middle lobe and lingula. Consideration may be given for an infectious/inflammatory bronchiolitis. Atypical infection as may be seen with mycobacterium avium complex is a differential consideration. There is a focal wedge-shaped area of consolidative change in the lateral right middle lobe. 3 month follow-up chest CT is recommended to assess for underlying neoplastic causes. Impression . IMPRESSION: 1. Abnormal x-ray, compatible with pneumonia, possibly chronic changes. 2. Metabolic toxic encephalopathy. 3. Pneumonia, suspect gram negative, possibly gram-positive. 4. History of atrial fibrillation. 5. Hypertension. 6. Chronic systolic heart failure. 7. Hypothyroidism. 8. Weight loss. 9. Moderate to severe protein malnutrition present upon admission. 10. Cardiomyopathy with ejection fraction previously estimated at 25-[address] CHEST Tree-in-bud nodular airspace disease identified scattered throughout the lungs predominantly involving the right upper lobe, right middle lobe and lingula. Consideration may be given for an infectious/inflammatory bronchiolitis. Atypical infection as may be seen with mycobacterium avium complex is a differential consideration. There is a focal wedge-shaped area of consolidative change in the lateral right middle lobe. 3 month follow-up chest CT is recommended to assess for underlying neoplastic causes. Plan . Updated 10/06 Pt. is stable from pulmonary stand point remains on R/A Continue ABX for ASA PNA , transition to po augmentin Echocardiogram from 11/21/2018 showed EF 25-30%, moderate pulmonary hypertension DVT/GI PPX :teri Pt. is DNR D/W RN Follow up in Office, ok to discharge from our standpoint 10/05 Pt. is stable from pulmonary stand point Continue ABX for ASA PNA Obtain sputum sample CT chest reviewed MRSA Negative Echocardiogram from 11/21/2018 showed EF 25-30%, moderate pulmonary hypertension DVT/GI PPX :teri Pt. is DNR D/W RN Dispo: Discharge in 48 hours, Follow up in Office 10/04 1. We will proceed with continue coverage for hospital-acquired pneumonia with Zosyn. 2. Obtain CT chest. 3. Resume home medications. 4. MRSA nasal screen for MRSA. I do appreciate the privilege in sharing in the patient's care. SOHAIL CROCKER MD Oct 06, 2020 09:46
[2020-10-06 11:00] VITALS: BP 127/80
--- NOTE | 2020-10-06 13:50 | NUR ---
SW following. Discussed with RN, discharge order for home with self care. Transportation arranged with [facility] for between [id number]. RN notified. No further SW needs.
[2020-10-06 15:30] VITALS: BP 120/48
--- NOTE | 2020-10-06 17:00 | NUR ---
Pt was read discharge packet, and had no questions or concerns. Pt's DPOA was called and notified/updated. Pt was stable when leaving the unit.
== END 2020-10-06 16:15 ==
LOC: ER 10:18 → 6 SOUTH 11:13 → INTOOBSV 11:13
PROVIDERS: ADMIT Family Medicine; ATTEND Family Medicine
DX: R41.82 Altered mental status, unspecified (principal); J18.9 Pneumonia, unspecified organism; R62.7 Adult failure to thrive; I48.91 Unspecified atrial fibrillation; I13.0 Hypertensive heart and chronic kidney disease with heart failure and stage 1 through stage 4 chronic kidney disease, or unspecified chronic kidney disease; I50.22 Chronic systolic (congestive) heart failure; N18.30 Chronic kidney disease, stage 3 unspecified; K21.9 Gastro-esophageal reflux disease without esophagitis; E03.9 Hypothyroidism, unspecified; E78.5 Hyperlipidemia, unspecified; E46 Unspecified protein-calorie malnutrition; F41.9 Anxiety disorder, unspecified; F32.9 Major depressive disorder, single episode, unspecified; M19.90 Unspecified osteoarthritis, unspecified site; R63.4 Abnormal weight loss; G92 Toxic encephalopathy; E43 Unspecified severe protein-calorie malnutrition; R93.89 Abnormal findings on diagnostic imaging of other specified body structures; I73.9 Peripheral vascular disease, unspecified; I70.0 Atherosclerosis of aorta; I70.1 Atherosclerosis of renal artery; I48.20 Chronic atrial fibrillation, unspecified; E78.00 Pure hypercholesterolemia, unspecified; I42.9 Cardiomyopathy, unspecified; Z68.1 Body mass index [BMI] 19.9 or less, adult; Z95.0 Presence of cardiac pacemaker; Z98.49 Cataract extraction status, unspecified eye; Z79.899 Other long term (current) drug therapy; Z87.891 Personal history of nicotine dependence; Z98.890 Other specified postprocedural states; Z87.11 Personal history of peptic ulcer disease
CPT/HCPCS: 36415; 70450; 71045; 71250; 74176; 80048; 80053; 81001; 83605; 83690; 83735; 83880; 84439; 84443; 84484; 85025; 85610; 87040; 87641; 93005; 96365; 96366; 96372; 96375; 97110; 97161; 97166; 97535; 99285; G0378; J1644; J2543; J2920; J7030; Q0163; G0379